=== PATIENT | male | born 1940 | race African-American/Black ===

== ENCOUNTER 2017-11-02 15:20 | Inpatient (IN) | payer OTHER ==
[2017-11-02] MEDS ORDERED: NACL 0.9% 1000 ML 1,000 ML IV ONE (15:45)
[2017-11-02] MEDS ORDERED: TYLENOL PR ONE (15:46)
[2017-11-02] MEDS: ZOSYN/NS 4.5GM/100ML 4.5 GM/100 ML VIAL IV SCH ×2 (16:00→22:37)
[2017-11-02] MEDS ORDERED: TYLENOL PO PRN (16:04)
[2017-11-02] MEDS ORDERED: DILAUDID IV PRN (16:04)
--- NOTE | 2017-11-02 16:19 | Emergency Department Report ---
ED Fever HPI - General Chief Complaint: Fever Stated Complaint: SEPSIS Time Seen by Provider: 11/02/17 15:57 - History of Present Illness Initial Comments: 77-year-old man with recent diagnosis of pyogenic hepatic abscess here, with apparent surgical treatment at [place], and discharged October 30, 4 days ago, presents with high fever, low blood pressure found to be 80 systolic at triage with significant tachycardia at 120 bpm. Patient denies pain at this time. Patient is , speaks very little Amharic, but denies pain, is awake and oriented, attempts to communicate, but is not understandable due to poor Amharic skills.. Further review of chart here shows patient had drainage of abscess, which ultimately grew gram-negative rods, Klebsiella, but liver also showed multiple septi an abscess, and liver itself showed cirrhosis, and was suspicious for underlying hepatocellular carcinoma. Patient was transferred to [facility] in mid Sep, 2017 for further care, and resultant procedures performed at that place or difficult to determine. Hospital volunteers present in department who speak Slovak were present, spoke with the patient, but patient had insufficient knowledge accurately describe what was performed for him, other than a surgical drainage procedure. Report from translators was that the patient was in good health today, when he suddenly developed shaking chills, weakness, and feverishness with diaphoresis while he was in his car, at approximately 1300 hrs. This was the precipitant for patient's emergency department visit here. Patient found to be significantly febrile, temperature 39.8 C, tachycardic at 120 bpm, and hypotensive with blood pressure 80 systolic, and rapid resuscitation according to sepsis protocol was initiated on patient. Timing/Duration: this morning Fever Severity/Quality: greater than 102 F Associated Symptoms: denies: abdominal pain, chest pain, headache, shortness of breath, stiff neck ED Review of Systems ROS: Stated complaint: SEPSIS Other details as noted in HPI Comment: language limitation Constitutional: chills, fever, malaise, weakness ENT: denies: throat pain Respiratory: denies: cough, shortness of breath Cardiovascular: denies: chest pain Endocrine: excessive sweating Gastrointestinal: other (recent surgery, abdominal incisions). denies: abdominal pain Genitourinary: denies: urgency, dysuria Musculoskeletal: denies: back pain Neurological: denies: headache ED Past Medical Hx - Past Medical History Hx Hypertension: Yes Hx CVA: No Hx Heart Attack/AMI: No Hx Congestive Heart Failure: No Hx Diabetes: No Hx Deep Vein Thrombosis: No Hx Pulmonary Embolism: No Hx GERD: No Hx Liver Disease: No Hx Renal Disease: No Hx Sickle Cell Disease: No Hx Arthritis: No Hx Headaches / Migraines: No Hx Seizures: No Hx Kidney Stones: No Hx Psychiatric Treatment: No Hx Asthma: No Hx COPD: No Hx Tuberculosis: No Hx Dementia: No Hx HIV: No Additional medical history: Pyogenic hepatic abscess - Surgical History Hx Coronary Stent: No Hx Open Heart Surgery: No Hx Pacemaker: No Hx Internal Defibrillator: No Hx Cholecystectomy: No Hx Appendectomy: No Hx Breast Surgery: No - Social History Smoking Status: Unknown if ever smoked Substance Use Type: None - Medications Home Medications: Home Medications Medication Instructions Recorded Confirmed Last Taken Type Simvastatin 20 mg PO DAILY 09/24/17 09/24/17 2 Weeks Ago History ~09/10/17 Colchicine [Colcrys] 0.6 mg PO BID #60 tablet 10/05/17 Unknown Rx cefTRIAXone [Ceftriaxone] 2 gm IV Q24HR #1 vial 10/05/17 Unknown Rx ED Physical Exam - General Limitations: Language Barrier General appearance: alert, in distress (hypotensive, acutely weak, but awake, oriented, difficult to understand due to poor Amharic skills) - Head Head exam: Present: atraumatic, normocephalic - Eye Eye exam: Present: PERRL - ENT ENT exam: Present: mucous membranes dry - Neck Neck exam: Present: normal inspection, full ROM. Absent: tenderness - Respiratory Respiratory exam: Present: normal lung sounds bilaterally. Absent: respiratory distress - Cardiovascular Cardiovascular Exam: Present: tachycardia - GI/Abdominal GI/Abdominal exam: Present: soft, other (recent surgical incisions, laparoscopic and midline upper abdomen, healing well, nontender) - Rectal Rectal exam: Present: deferred - Extremities Exam Extremities exam: Present: normal inspection - Back Exam Back exam: Present: normal inspection - Neurological Exam Neurological exam: Present: alert, CN II-XII intact. Absent: motor sensory deficit - Psychiatric Psychiatric exam: Present: normal affect - Skin Skin exam: Present: warm (cooperative, pleasant) ED Course Vital Signs 11/02/17 11/02/17 11/02/17 15:37 16:16 16:30 Temperature 39.8 C H Pulse Rate 127 H 119 H 117 H Respiratory 21 23 20 Rate Blood Pressure 116/52 94/44 93/46 Blood Pressure [Left] O2 Sat by Pulse 94 Oximetry 11/02/17 11/02/17 11/02/17 16:46 17:00 17:05 Temperature 37.8 C H Pulse Rate 103 H 97 H Respiratory 23 20 Rate Blood Pressure 91/43 104/48 Blood Pressure [Left] O2 Sat by Pulse Oximetry 11/02/17 11/02/17 11/02/17 17:16 17:30 17:33 Temperature Pulse Rate 92 H 94 H 92 H Respiratory 23 24 22 Rate Blood Pressure 102/41 114/56 Blood Pressure 86/66 [Left] O2 Sat by Pulse 99 Oximetry 11/02/17 11/02/17 11/02/17 17:45 18:00 18:15 Temperature Pulse Rate 94 H 86 91 H Respiratory 21 21 26 H Rate Blood Pressure 82/41 92/47 101/53 Blood Pressure [Left] O2 Sat by Pulse Oximetry 11/02/17 11/02/17 18:30 18:45 Temperature Pulse Rate 84 85 Respiratory 18 23 Rate Blood Pressure 95/49 104/50 Blood Pressure [Left] O2 Sat by Pulse Oximetry - Reevaluation(s) Reevaluation #1: 11/02/17 17:05 Patient's blood pressure has declined since initial positive response resuscitation, and is currently 88 systolic, tachycardic remains a little change but at 120 bpm. Reevaluation #2: 11/02/17 18:38 Triple lumen right internal jugular central line placed under ultrasound guidance, see note for particulars. Patient tolerated procedure well Vital signs after procedure blood pressure 95/54, heart rate 84, oxygen saturation 99%, with norepinephrine drip at 4 mcg/m. - Central Line Placement Right IJ Consent Obtained: verbal consent (with translation by hospital volunteers Sarah) Time Out Performed: Yes Patient Placed on Monitor/Pulse Ox: Yes MD Prep: mask, gown, gloves Central Line Prep: Chlorhexidine scrub Local Anesthesia Used: Lidocaine 1% Amount of Anesthesia Used (mls): 3 Ultrasound Used for Placement: Yes Central Line Lumen Inserted: triple Bloods Obtained for Lab: Yes Central Line Position: good blood return, all ports aspirated, flus, sutured in place with 2-0 Dressing Applied: Tegaderm Post Procedure X-Ray: tip of catheter in good p Patient Tolerated Procedure: well Complications: none ED Medical Decision Making - Lab Data Result diagrams: 11/02/17 15:55 11/02/17 15:55 - Medical Decision Making Patient has clear-cut sepsis with fever, hypotension, tachycardia, with known infectious origin from pyogenic Status and liver. Since patient has had decline after initial positive response to resuscitation, he will likely need ICU admission and support with vasopressors. - Differential Diagnosis sepsis, abscess, ruptured viscus, pneumonia, UTI Critical Care Time: Yes Critical care time in (mins) excluding proc time.: 60 Critical care attestation.: If time is entered above; I have spent that time in minutes in the direct care of this critically ill patient, excluding procedure time. Critical Care Time: 60 minutes of critical care time was provided in assessing and stabilizing this patient's acute unstable condition secondary to severe sepsis and known pyogenic hepatic abscess, with recurrence of hypotension, necessitating vasopressor support as well as placement of triple lumen catheter, with critical care time being exclusive of 30 minutes provided in establishing patient's central line. ED Disposition Clinical Impression: Sepsis Qualifiers: Sepsis type: sepsis due to unspecified organism Qualified Code(s): A41.9 - Sepsis, unspecified organism Disposition: OP ADMIT IP TO THIS HOSP Is pt being admited?: Yes Does the pt Need Aspirin: No Condition: Stable Referrals: PRIMARY CARE, [Primary Care Provider] - 3-5 Days Time of Disposition: 16:00
[2017-11-02 16:28] LABS: Basophils % (Auto) 0.3 % (0.0-1.8); Eosinophils % (Auto) 0.1 % (0.0-4.3); Hemoglobin 10.4 gm/dl (11.8-15.2); Lymphocytes # (Auto) 0.6 K/mm3 (1.2-5.4); Monocytes # (Auto) 0.5 K/mm3 (0.0-0.8); Monocytes % (Auto) 4.7 % (0.0-7.3)
[2017-11-02 16:31] LABS: Amorphous Crystals,Urine Few; Bilirubin,Urine NEG (Negative); Blood,Urine NEG (Negative); Color,Urine Yellow (Yellow); Mucus,Urine FEW /HPF; Protein,Urine <15 mg/dL mg/dL (Negative); Urobilinogen,Urine < 2.0 mg/dL (<2.0)
[2017-11-02 16:36] LABS: INR 1.13 (0.87-1.13); Partial Thromboplastin Time 30.7 Sec. (24.2-36.6)
[2017-11-02 16:40] LABS: Hematocrit 33.1 % (35.5-45.6); Mean Corpuscular HGB Conc 32 % (32-34); Mean Corpuscular Hemoglobin 32 pg (28-32); Mean Corpuscular Volume 99 fl (84-94); Platelet Count 347 K/mm3 (140-440); Red Blood Count 3.36 M/mm3 (3.65-5.03); Red Cell Distribution Width 18.2 % (13.2-15.2)
[2017-11-02 16:41] LABS: Alanine Aminotransferase 18 units/L (7-56); Albumin 2.8 g/dL (3.9-5); BUN/Creatinine Ratio 13; Blood Urea Nitrogen 14 mg/dL (9-20); Hemolysis Index 5
[2017-11-02] MEDS ORDERED: LEVOPHED DRIP 4 MG/NS 250 ML 4 MG/250 ML BAG IV ONE (17:00)
--- NOTE | 2017-11-02 17:51 | XRay Report ---
FINAL REPORT EXAM: XR CHEST 1V AP HISTORY: possible Sepsis TECHNIQUE: Single, portable chest x-ray. PRIORS: 23 Sep 2017. FINDINGS: Cardiac and mediastinal silhouette within normal limits. Lungs are normally expanded, with questionable, mild retrocardiac opacity, which may be new or more conspicuous. No significant vascular congestion, other focal consolidation or apparent pneumothorax. Bony thorax grossly unremarkable. IMPRESSION: 1. Findings which may represent left basilar atelectasis, mild infiltrate or postinflammatory change more conspicuous in the interval. Correlate clinically. 2. Otherwise, unremarkable.
[2017-11-02] MEDS ORDERED: LEVOPHED DRIP 4 MG/NS 250 ML 4 MG/250 ML BAG IV SCH (18:00)
[2017-11-02] MEDS ORDERED: NACL 0.9% 250ML 250 ML IV ONE (19:01)
--- NOTE | 2017-11-02 20:26 | XRay Report ---
FINAL REPORT EXAM: XR CHEST 1V AP HISTORY: LINE PLACEMENT TECHNIQUE: Single, portable chest x-ray. PRIORS: Earlier on same date. FINDINGS: Right IJ central venous catheter tip projects over the right atrium and may be withdrawn 3-4 cm. Cardiac silhouette stable. Lungs without significant interval change. No apparent pneumothorax. IMPRESSION: 1. Right IJ central venous catheter position as reported. 2. Otherwise, stable.
[2017-11-02] MEDS ORDERED: NACL 0.9% 1000 ML 2,000 ML ONE (23:51)
--- NOTE | 2017-11-03 00:21 | History and Physical Report ---
History of Present Illness Date of examination: 11/02/17 Date of admission: 11/02/17 19:01 Chief complaint: Chief complaint: Fever of 1 day duration since a.m. with chills History of present illness: History of Present Illness: 77-year-old man with recent diagnosis of pyogenic hepatic abscess here, with apparent surgical treatment at [place], and discharged October 30, 4 days ago, presents with high fever, low blood pressure found to be 80 systolic at triage with significant tachycardia at 120 bpm. Patient denies pain at this time. Patient is , speaks very little Khmer, but denies pain, is awake and oriented, attempts to communicate, but is not understandable due to poor Khmer skills.. Further review of chart here shows patient had drainage of abscess, which ultimately grew gram-negative rods, Klebsiella, but liver also showed multiple septi an abscess, and liver itself showed cirrhosis, and was suspicious for underlying hepatocellular carcinoma. Patient was transferred to [facility] in mid Sep, 2017 for further care, and resultant procedures performed at that place or difficult to determine. Hospital volunteers present in department who speak Croatian were present, spoke with the patient, but patient had insufficient knowledge accurately describe what was performed for him, other than a surgical drainage procedure. Report from translators was that the patient was in good health today, when he suddenly developed shaking chills, weakness, and feverishness with diaphoresis while he was in his car, at approximately 1300 hrs. This was the precipitant for patient's emergency department visit here. Patient found to be significantly febrile, temperature 39.8 C, tachycardic at 120 bpm, and hypotensive with blood pressure 80 systolic, and rapid resuscitation according to sepsis protocol was initiated on patient. Timing/Duration: this morning Fever Severity/Quality: greater than 102 F Associated Symptoms: denies: abdominal pain, chest pain, headache, shortness of breath, stiff neck Past Medical History Hx Hypertension: Yes Hx CVA: No Additional medical history: Pyogenic hepatic abscess -Surgical History Drainage of liver abscess - Social History Smoking Status: Unknown if ever smoked Substance Use Type: None Family history Hypertension - Medications Home Medications: Home Medications Medication Instructions Recorded Confirmed Last Taken Type Simvastatin 20 mg PO DAILY 09/24/17 09/24/17 2 Weeks Ago History ~09/10/17 Colchicine [Colcrys] 0.6 mg PO BID #60 tablet 10/05/17 Unknown Rx cefTRIAXone [Ceftriaxone] 2 gm IV Q24HR #1 vial 10/05/17 Unknown Rx Review of Systems ROS: Stated complaint: SEPSIS Other details as noted in HPI Comment: language limitation Constitutional: chills, fever, malaise, weakness ENT: denies: throat pain Respiratory: denies: cough, shortness of breath Cardiovascular: denies: chest pain Endocrine: excessive sweating Gastrointestinal: other (recent surgery, abdominal incisions). denies: abdominal pain Genitourinary: denies: urgency, dysuria Musculoskeletal: denies: back pain Neurological: denies: headache Medications and Allergies Allergies Allergy/AdvReac Type Severity Reaction Status Date / Time No Known Allergies Allergy Unverified 09/23/17 20:31 Home Medications Medication Instructions Recorded Confirmed Last Taken Type Simvastatin 20 mg PO DAILY 09/24/17 09/24/17 2 Weeks Ago History ~09/10/17 Colchicine [Colcrys] 0.6 mg PO BID #60 tablet 10/05/17 Unknown Rx cefTRIAXone [Ceftriaxone] 2 gm IV Q24HR #1 vial 10/05/17 Unknown Rx Active Meds: Active Medications Acetaminophen (Tylenol) 650 mg PO Q6H PRN PRN Reason: Pain, Mild (1-3) Hydromorphone HCl (Dilaudid) 0.25 mg IV Q4H PRN PRN Reason: Pain, Moderate (4-6) Piperacillin Sod/Tazobactam Sod (Zosyn/Ns 4.5gm/100ml) 4.5 gm in 100 mls @ 200 mls/hr IV Q8HR MICHELLE; Protocol Last Admin: 11/02/17 22:37 Dose: 200 mls/hr Norepinephrine (Levophed Drip 4 Mg/Ns 250 Ml) 4 mg in 250 mls @ 7.5 mls/hr IV TITR MICHELLE; Protocol Last Titration: 11/02/17 17:53 Dose: 6 mcg/min, 22.5 mls/hr Exam - Physical Exam Narrative exam: Patient in mild distress - Constitutional Vitals: Temp Pulse Resp BP Pulse Ox 100.1 F H 68 20 98/60 98 11/02/17 19:02 11/03/17 00:00 11/03/17 00:00 11/03/17 00:00 11/02/17 19:12 General appearance: Present: mild distress, well-nourished, other (chills present and fever present) - EENT Eyes: Present: PERRL ENT: hearing intact, clear oral mucosa - Neck Neck: Present: supple, normal ROM - Respiratory Respiratory effort: normal Respiratory: bilateral: CTA - Cardiovascular Heart rate: 100 Rhythm: regular Heart Sounds: Present: S1 & S2. Absent: rub, click - Extremities Extremities: no ischemia, pulses intact, pulses symmetrical, No edema Peripheral Pulses: within normal limits - Abdominal General gastrointestinal: Present: soft, non-tender, non-distended, normal bowel sounds Male genitourinary: Present: normal - Rectal Rectal Exam: deferred - Integumentary Integumentary: Present: clear, warm, dry - Musculoskeletal Musculoskeletal: gait normal, strength equal bilaterally - Psychiatric Psychiatric: appropriate mood/affect, intact judgment & insight - Neurologic Neurologic: CNII-XII intact, moves all extremities - Allied Health Allied health notes reviewed: nursing, case management Results - Labs CBC & Chem 7: 11/02/17 15:55 11/02/17 15:55 Labs: Laboratory Last Values WBC 11.4 K/mm3 (4.5-11.0) H 11/02/17 15:55 RBC 3.36 M/mm3 (3.65-5.03) L 11/02/17 15:55 Hgb 10.4 gm/dl (11.8-15.2) L 11/02/17 15:55 Hct 33.1 % (35.5-45.6) L 11/02/17 15:55 MCV 99 fl (84-94) H 11/02/17 15:55 MCH 32 pg (28-32) 11/02/17 15:55 MCHC 32 % (32-34) 11/02/17 15:55 RDW 18.2 % (13.2-15.2) H 11/02/17 15:55 Plt Count 347 K/mm3 (140-440) 11/02/17 15:55 Lymph % (Auto) 5.0 % (13.4-35.0) L 11/02/17 15:55 [place] % (Auto) 4.7 % (0.0-7.3) 11/02/17 15:55 Eos % (Auto) 0.1 % (0.0-4.3) 11/02/17 15:55 Baso % (Auto) 0.3 % (0.0-1.8) 11/02/17 15:55 Lymph # 0.6 K/mm3 (1.2-5.4) L 11/02/17 15:55 [place] # 0.5 K/mm3 (0.0-0.8) 11/02/17 15:55 Eos # 0.0 K/mm3 (0.0-0.4) 11/02/17 15:55 Baso # 0.0 K/mm3 (0.0-0.1) 11/02/17 15:55 Seg Neutrophils % 89.9 % (40.0-70.0) H 11/02/17 15:55 Seg Neutrophils # 10.2 K/mm3 (1.8-7.7) H 11/02/17 15:55 PT 15.1 Sec. (12.2-14.9) H 11/02/17 15:55 INR 1.13 (0.87-1.13) 11/02/17 15:55 APTT 30.7 Sec. (24.2-36.6) 11/02/17 15:55 VBG pH 7.374 (7.320-7.420) 11/02/17 15:55 Sodium 136 mmol/L (137-145) L 11/02/17 15:55 Potassium 4.4 mmol/L (3.6-5.0) 11/02/17 15:55 Chloride 98.8 mmol/L (98-107) 11/02/17 15:55 Carbon Dioxide 19 mmol/L (22-30) L 11/02/17 15:55 Anion Gap 23 mmol/L 11/02/17 15:55 BUN 14 mg/dL (9-20) 11/02/17 15:55 Creatinine 1.1 mg/dL (0.8-1.5) 11/02/17 15:55 Estimated GFR > 60 ml/min 11/02/17 15:55 BUN/Creatinine Ratio 13 % 11/02/17 15:55 Glucose 124 mg/dL (75-100) H 11/02/17 15:55 Lactic Acid 1.70 mmol/L (0.7-2.0) 11/02/17 17:12 Calcium 8.0 mg/dL (8.4-10.2) L 11/02/17 15:55 Total Bilirubin 0.50 mg/dL (0.1-1.2) 11/02/17 15:55 AST 30 units/L (5-40) 11/02/17 15:55 ALT 18 units/L (7-56) 11/02/17 15:55 Alkaline Phosphatase 155 units/L (35-129) H 11/02/17 15:55 Troponin T < 0.010 ng/mL (0.00-0.029) 11/02/17 15:55 Total Protein 6.3 g/dL (6.3-8.2) 11/02/17 15:55 Albumin 2.8 g/dL (3.9-5) L 11/02/17 15:55 Albumin/Globulin Ratio 0.8 % 11/02/17 15:55 Urine Color Yellow (Yellow) 11/02/17 16:00 Urine Turbidity Clear (Clear) 11/02/17 16:00 Urine pH 5.0 (5.0-7.0) 11/02/17 16:00 Ur Specific [place] 1.014 (1.003-1.030) 11/02/17 16:00 Urine Protein <15 mg/dl mg/dL (Negative) 11/02/17 16:00 Urine Glucose (UA) Neg mg/dL (Negative) 11/02/17 16:00 Urine Ketones Neg mg/dL (Negative) 11/02/17 16:00 Urine Blood Neg (Negative) 11/02/17 16:00 Urine Nitrite Neg (Negative) 11/02/17 16:00 Urine Bilirubin Neg (Negative) 11/02/17 16:00 Urine Urobilinogen < 2.0 mg/dL (<2.0) 11/02/17 16:00 Ur Leukocyte Esterase Neg (Negative) 11/02/17 16:00 Urine WBC (Auto) 1.0 /HPF (0.0-6.0) 11/02/17 16:00 Urine RBC (Auto) 3.0 /HPF (0.0-6.0) 11/02/17 16:00 U Epithel Cells (Auto) < 1.0 /HPF (0-13.0) 11/02/17 16:00 Amorphous Crystals Few 11/02/17 16:00 Urine Mucus Few /HPF 11/02/17 16:00 Blood Type B POSITIVE 11/02/17 16:19 Antibody Screen Negative 11/02/17 16:19 - Imaging and Cardiology Chest x-ray: report reviewed Imaging and Cardiology: Chest x-ray: IMPRESSION: Findings which may represent left basilar atelectasis, mild infiltrate or postinflammatory change more conspicuous in the interval. Correlate clinically. 2. Otherwise, unremarkable. Assessment and Plan Advance Directives: Yes (full code) VTE prophylaxis?: Chemical Plan of care discussed with patient/family: Yes - Patient Problems (1) Sepsis Current Visit: Yes Status: Acute Qualifiers: Sepsis type: sepsis due to unspecified organism Qualified Code(s): A41.9 - Sepsis, unspecified organism Plan to address problem: IV Zosyn and Flagyl for hepatic abscess IV fluids IV Levophed if necessary ID consult requested Last admission cultures were positive for Klebsiella (2) Pyogenic hepatic abscess Current Visit: No Status: Acute Plan to address problem: Etiology unclear Most probably Klebsiella infection Hepatic Amebiasis to be considered.Patient is from [facility] IV Flagyl initiated (3) Hypotension Current Visit: Yes Status: Acute Qualifiers: Hypotension type: unspecified hypotension type Qualified Code(s): I95.9 - Hypotension, unspecified Plan to address problem: Secondary to sepsis IV fluids and IV Levophed as necessary Central line inserted by the emergency room physician Dr. Carney (4) Lactic acidosis Current Visit: Yes Status: Acute Plan to address problem: Secondary to sepsis (5) Hyperlipidemia Current Visit: Yes Status: Chronic Qualifiers: Hyperlipidemia type: mixed hyperlipidemia Qualified Code(s): E78.2 - Mixed hyperlipidemia Plan to address problem: We'll hold the statins (6) DVT prophylaxis Current Visit: Yes Status: Acute Plan to address problem: Heparin 5000 subcutaneously every 12 hours
[2017-11-03] MEDS ORDERED: SODIUM CHLORIDE FLUSH SYRINGE 10 ML IV PRN (00:35)
[2017-11-03] MEDS ORDERED: ZOFRAN IV PRN (00:35)
[2017-11-03] MEDS ORDERED: MORPHINE IV PRN (00:35)
[2017-11-03] MEDS ORDERED: TYLENOL PO PRN (00:35)
[2017-11-03] MEDS ORDERED: FLAGYL 500 MG/100 ML 500 MG/100 ML BAG IV ONE (00:49)
[2017-11-03] MEDS ORDERED: HEPARIN ONE (00:50)
[2017-11-03] MEDS: FLAGYL 500 MG/100 ML 500 MG/100 ML BAG IV SCH ×3 (00:53→16:25)
[2017-11-03] MEDS: HEPARIN SUB-Q SCH ×3 (00:53→23:17)
[2017-11-03 05:32] LABS: BUN/Creatinine Ratio 11; Blood Urea Nitrogen 9 mg/dL (9-20); Calcium 7.7 mg/dL (8.4-10.2); Hemolysis Index 10
[2017-11-03] MEDS: ZOSYN/NS 4.5GM/100ML 4.5 GM/100 ML VIAL IV SCH (05:59)
--- NOTE | 2017-11-03 08:49 | Consultation ---
History of Present Illness Consult date: 11/03/17 Requesting physician: MITZY ALFRED Reason for consult: other (severe sepsis with septic shock) History of present illness: History as documented in medical records 77-year-old man with recent diagnosis of pyogenic hepatic abscess here, with apparent surgical treatment at [facility], and discharged October 30, 4 days ago, presents with high fever, low blood pressure found to be 80 systolic at triage with significant tachycardia at 120 bpm. Patient denies pain at this time. Patient is , speaks very little [place], but denies pain, is awake and oriented, attempts to communicate, but is not understandable due to poor Ukrainian skills.. Further review of chart here shows patient had drainage of abscess, which ultimately grew gram-negative rods, Klebsiella, but liver also showed multiple septi an abscess, and liver itself showed cirrhosis, and was suspicious for underlying hepatocellular carcinoma. Patient was transferred to [facility] in mid Sep, 2017 for further care, and resultant procedures performed at that place or difficult to determine. Hospital volunteers present in department who speak Russian were present, spoke with the patient, but patient had insufficient knowledge accurately describe what was performed for him, other than a surgical drainage procedure. Report from translators was that the patient was in good health today, when he suddenly developed shaking chills, weakness, and feverishness with diaphoresis while he was in his car, at approximately 1300 hrs. This was the precipitant for patient's emergency department visit here. Patient found to be significantly febrile, temperature 39.8 C, tachycardic at 120 bpm, and hypotensive with blood pressure 80 systolic, and rapid resuscitation according to sepsis protocol was initiated on patient. Patient was seen and examined in the ICU History was limited by language barrier. he states he feels OK at this time. Vitals, labs, medications, chart reviewed. Discussed during ICU-IDT rounds. Currently being treated for severe sepsis with septic shock Medications and Allergies Allergies Allergy/AdvReac Type Severity Reaction Status Date / Time No Known Allergies Allergy Unverified 09/23/17 20:31 Home Medications Medication Instructions Recorded Confirmed Last Taken Type Simvastatin 20 mg PO DAILY 09/24/17 09/24/17 2 Weeks Ago History ~09/10/17 Colchicine [Colcrys] 0.6 mg PO BID #60 tablet 10/05/17 Unknown Rx cefTRIAXone [Ceftriaxone] 2 gm IV Q24HR #1 vial 10/05/17 Unknown Rx Active Meds: Active Medications Acetaminophen (Tylenol) 650 mg PO Q4H PRN PRN Reason: Pain MILD(1-3)/Fever >100.5/GOODMAN Famotidine (Pepcid) 20 mg IV DAILY MICHELLE Heparin Sodium (Porcine) (Heparin) 5,000 unit SUB-Q Q12HR MICHELLE Last Admin: 11/03/17 00:53 Dose: 5,000 unit Piperacillin Sod/Tazobactam Sod (Zosyn/Ns 4.5gm/100ml) 4.5 gm in 100 mls @ 200 mls/hr IV Q8HR MICHELLE; Protocol Last Admin: 11/03/17 05:59 Dose: 200 mls/hr Norepinephrine (Levophed Drip 4 Mg/Ns 250 Ml) 4 mg in 250 mls @ 7.5 mls/hr IV TITR MICHELLE; Protocol Last Titration: 11/03/17 05:27 Dose: 0 mcg/min, 0 mls/hr Dextrose/Sodium Chloride (D5ns) 1,000 mls @ 125 mls/hr IV DIRECT MICHELLE Metronidazole (Flagyl 500 Mg/100 Ml) 500 mg in 100 mls @ 100 mls/hr IV Q8H MICHELLE ; Protocol Last Admin: 11/03/17 00:53 Dose: 100 mls/hr Morphine Sulfate (Morphine) 2 mg IV Q4H PRN PRN Reason: Pain, Moderate (4-6) Ondansetron HCl (Zofran) 4 mg IV Q8H PRN PRN Reason: Nausea And Vomiting Sodium Chloride (Sodium Chloride Flush Syringe 10 Ml) 10 ml IV BID MICHELLE Sodium Chloride (Sodium Chloride Flush Syringe 10 Ml) 10 ml IV PRN PRN PRN Reason: LINE FLUSH Physical Examination Vital signs: Vital Signs Temp Pulse Resp BP Pulse Ox 103.7 F H 127 H 21 116/52 94 11/02/17 15:37 11/02/17 15:37 11/02/17 15:37 11/02/17 15:37 11/02/17 15:37 General appearance: Alert in NAD, conversant Eyes: anicteric sclerae, moist conjunctivae; no lid-lag; PERRLA HENT: Atraumatic; oropharynx clear with moist mucous membranes and no mucosal ulcerations/no oral thrush; normal hard and soft palate. Normal external ears. Neck: Trachea midline; supple, no thyromegaly or lymphadenopathy Lungs: CTA, with normal respiratory effort and no intercostal retractions CV: RRR, no murmurs, S1,S2 Abdomen: Soft, mild tender to palpation right upper quadrant , midline healed post surgical wounds Extremities: No peripheral edema or extremity lymphadenopathy Skin: Normal temperature, turgor and texture; no rash, ulcers or subcutaneous nodules Psych: Appropriate affect, alert and oriented to person, place and time. Neuro: alert, non focal ..moving all extremities Results - Laboratory Findings CBC and BMP: 11/02/17 15:55 11/03/17 04:28 PT/INR, D-dimer PT 15.1 Sec. (12.2-14.9) H 11/02/17 15:55 INR 1.13 (0.87-1.13) 11/02/17 15:55 Abnormal lab findings: Abnormal Labs 11/02/17 11/02/17 11/02/17 15:55 15:55 15:55 WBC 11.4 H RBC 3.36 L Hgb 10.4 L Hct 33.1 L MCV 99 H RDW 18.2 H Lymph % (Auto) 5.0 L Lymph # 0.6 L Seg Neutrophils % 89.9 H Seg Neutrophils # 10.2 H PT 15.1 H Sodium 136 L Chloride Carbon Dioxide 19 L Glucose 124 H Hemoglobin A1c Lactic Acid Calcium 8.0 L Alkaline Phosphatase 155 H Albumin 2.8 L 11/02/17 11/03/17 11/03/17 15:55 01:16 04:28 WBC RBC Hgb Hct MCV RDW Lymph % (Auto) Lymph # Seg Neutrophils % Seg Neutrophils # PT Sodium Chloride 110.8 H Carbon Dioxide Glucose 152 H Hemoglobin A1c 8.1 H Lactic Acid 7.20 H* Calcium 7.7 L Alkaline Phosphatase Albumin - Diagnostic Findings Chest x-ray: image reviewed (No acute infiltrate) Assessment and Plan Severe sepsis with septic shock Fevers, with history of pyogenic/complex hepatic abscesses Lactic acidosis Moderate protein calorie malnutrition -Sepsis bundle addressed -wean off vasopressor support for MAP>65 - VTE prophylaxis -Broad spectrum antibiotics, per ID -follow up abdominal imaging to monitor response to antibiotics, ?need for percutaneous drainnage -Follow up blood and urine cultures then de-escalate antibiotics based on FIDEL -Get all records from [place]( notified [facility]) -When patient is weaned off vasopressor support and his hemodynamics remain normal then will plan to transfer out of ICU to monitored floor Critical care time in (mins) excluding proc time.: 35 Critical care attestation.: If time is entered above; I have spent that time in minutes in the direct care of this critically ill patient, excluding procedure time.
--- NOTE | 2017-11-03 09:01 | Consultation ---
History of Present Illness - Reason for Consult Consult date: 11/03/17 fever Requesting physician: MITZY ALFRED - History of Present Illness 77 y/o male with history of hypertension, hyperlipidemia, [place] Citizen speaking; well known to ID seen during previous admission from 09/23-10/05/17 due to complex liver abscess and Klebsiella septicemia. On 09/23 he was found septic and with acute encephalopathy due to Klebsiella septicemia which was felt to be from a complex liver abscess. Blood cx positive on 09/23/17. Blood cx negative on . UA was negative. Abd US + liver cirrhosis and hepatic mass 6.7 cm. HIDA neg. CRP=32. AFP=1.5.Viral hepatitis panel neg MRI showing 6.1x7.9x8.6cm loculated mass in the right hepatic lobe with multiple septations ? complex abscess. S/P IR drainage 09/29/17 culture +Klebsiella with persistent drainage of purulence, repeat CT no changes collection went from 8.9x6.7 cm to 8.4x6.6 cm. On 10/05/17 patient was accepted at [facility] for OR management. It is unclear what procedure he underwent. Patient only speaks [place] Citizen and records from [facility] are not available. It seems he had some kind of laparoscopy surgery from physical exam. He was discharged home from [facility] on 10/30/17. Unfortunately, patient was brought back to the hospital due to severe chills and fever. Interview is limited in view of language barrier. In the ED, initial temperature was 103.7, heart rate 127, respiration 21, O2 sat 94, blood pressure 116/52. Initial white count 11.4. Hemoglobin 10.4. Platelets 347. Creatinine 1.1. Lactic acid 7.2. LFTs normal. Chest x-ray showed left lower lobe atelectasis. Microbiology: Blood cultures: 09/23 Klebsiella pneumoniae 3 of 4 bottles 09/25 negative 11/02 ngtd Urine cultures: 09/23 no growth IR drainage 09/29 Klebsiella Current Antimicrobials: Zosyn flagyl Previous Antimicrobials: ceftriaxone 09/29-10/05 Past History Past Medical History: other (complex liver abscesses, gout) Social history: other (IR draiange of liver, lap surgery at [facility] ) Family history: no significant family history Medications and Allergies Allergies Allergy/AdvReac Type Severity Reaction Status Date / Time No Known Allergies Allergy Unverified 09/23/17 20:31 Home Medications Medication Instructions Recorded Confirmed Last Taken Type Simvastatin 20 mg PO DAILY 09/24/17 09/24/17 2 Weeks Ago History ~09/10/17 Colchicine [Colcrys] 0.6 mg PO BID #60 tablet 10/05/17 Unknown Rx cefTRIAXone [Ceftriaxone] 2 gm IV Q24HR #1 vial 10/05/17 Unknown Rx Active Meds: Active Medications Acetaminophen (Tylenol) 650 mg PO Q4H PRN PRN Reason: Pain MILD(1-3)/Fever >100.5/GOODMAN Famotidine (Pepcid) 20 mg IV DAILY MICHELLE Heparin Sodium (Porcine) (Heparin) 5,000 unit SUB-Q Q12HR MICHELLE Last Admin: 11/03/17 00:53 Dose: 5,000 unit Piperacillin Sod/Tazobactam Sod (Zosyn/Ns 4.5gm/100ml) 4.5 gm in 100 mls @ 200 mls/hr IV Q8HR MICHELLE; Protocol Last Admin: 11/03/17 05:59 Dose: 200 mls/hr Norepinephrine (Levophed Drip 4 Mg/Ns 250 Ml) 4 mg in 250 mls @ 7.5 mls/hr IV TITR MICHELLE; Protocol Last Titration: 11/03/17 05:27 Dose: 0 mcg/min, 0 mls/hr Dextrose/Sodium Chloride (D5ns) 1,000 mls @ 125 mls/hr IV DIRECT MICHELLE Metronidazole (Flagyl 500 Mg/100 Ml) 500 mg in 100 mls @ 100 mls/hr IV Q8H MICHELLE ; Protocol Last Admin: 11/03/17 00:53 Dose: 100 mls/hr Morphine Sulfate (Morphine) 2 mg IV Q4H PRN PRN Reason: Pain, Moderate (4-6) Ondansetron HCl (Zofran) 4 mg IV Q8H PRN PRN Reason: Nausea And Vomiting Sodium Chloride (Sodium Chloride Flush Syringe 10 Ml) 10 ml IV BID MICHELLE Sodium Chloride (Sodium Chloride Flush Syringe 10 Ml) 10 ml IV PRN PRN PRN Reason: LINE FLUSH Review of Systems All systems: negative (Limited view of language barrier) Physical Examination - Physical Exam Narrative exam: General appearance: Alert in NAD, conversant Eyes: anicteric sclerae, moist conjunctivae; no lid-lag; PERRLA HENT: Atraumatic; oropharynx clear with moist mucous membranes and no mucosal ulcerations/no oral thrush; normal hard and soft palate. Normal external ears. Neck: Trachea midline; supple, no thyromegaly or lymphadenopathy Lungs: CTA, with normal respiratory effort and no intercostal retractions CV: RRR, no murmurs Abdomen: Soft, mild tender to palpation right upper quadrant + postsurgical wounds well-healed Extremities: No peripheral edema or extremity lymphadenopathy Skin: Normal temperature, turgor and texture; no rash, ulcers or subcutaneous nodules Psych: Appropriate affect, alert and oriented to person, place and time. Neuro: alert and oriented x 3. Moving all extermities Lines: No CVL / PICC - Constitutional Vitals: Vital Signs Temp Pulse Resp BP Pulse Ox 97.6 F 58 L 15 116/57 100 11/03/17 07:58 11/03/17 07:51 11/03/17 07:51 11/03/17 07:51 11/03/17 07:51 Temperature -Last 24 Hours Temperature [Pre-Procedure] 100.1 F Temperature 97.6 F Temperature 97.7 F Temperature 100.1 F Temperature 103.7 F Results - Labs CBC & Chem 7: 11/02/17 15:55 11/03/17 04:28 Labs: Abnormal lab results 11/02/17 11/02/17 11/02/17 Range/Units 15:55 15:55 15:55 WBC 11.4 H (4.5-11.0) K/mm3 RBC 3.36 L (3.65-5.03) M/mm3 Hgb 10.4 L (11.8-15.2) gm/dl Hct 33.1 L (35.5-45.6) % MCV 99 H (84-94) fl RDW 18.2 H (13.2-15.2) % Lymph % (Auto) 5.0 L (13.4-35.0) % Lymph # 0.6 L (1.2-5.4) K/mm3 Seg Neutrophils % 89.9 H (40.0-70.0) % Seg Neutrophils # 10.2 H (1.8-7.7) K/mm3 PT 15.1 H (12.2-14.9) Sec. Sodium 136 L (137-145) mmol/L Chloride (98-107) mmol/L Carbon Dioxide 19 L (22-30) mmol/L Glucose 124 H (75-100) mg/dL Hemoglobin A1c (4-6) % Lactic Acid (0.7-2.0) mmol/L Calcium 8.0 L (8.4-10.2) mg/dL Alkaline Phosphatase 155 H (35-129) units/L Albumin 2.8 L (3.9-5) g/dL 11/02/17 11/03/17 11/03/17 Range/Units 15:55 01:16 04:28 WBC (4.5-11.0) K/mm3 RBC (3.65-5.03) M/mm3 Hgb (11.8-15.2) gm/dl Hct (35.5-45.6) % MCV (84-94) fl RDW (13.2-15.2) % Lymph % (Auto) (13.4-35.0) % Lymph # (1.2-5.4) K/mm3 Seg Neutrophils % (40.0-70.0) % Seg Neutrophils # (1.8-7.7) K/mm3 PT (12.2-14.9) Sec. Sodium (137-145) mmol/L Chloride 110.8 H (98-107) mmol/L Carbon Dioxide (22-30) mmol/L Glucose 152 H (75-100) mg/dL Hemoglobin A1c 8.1 H (4-6) % Lactic Acid 7.20 H* (0.7-2.0) mmol/L Calcium 7.7 L (8.4-10.2) mg/dL Alkaline Phosphatase (35-129) units/L Albumin (3.9-5) g/dL Assessment and Plan Assessment: 1) Sepsis: Present on admission, manifested by fever, leukocytosis, tachycardia , increased lactate; etiology unclear, DDX recurrent bacteremia, persistent liver abscess 2) Recent Klebsiella septicemia: etiology likely complex liver abscess -Blood cx positive on 09/23/17 -Blood cx negative on 09/25/17 -UA was negative. -CT was unremarkable except for renal cysts and non obstructive stone. -Abd US + liver cirrhosis and hepatic mass 6.7 cm -HIDA neg -CRP=32 -AFP=1.5 3) Complex liver abscess: -MRI showing 6.1x7.9x8.6cm loculated mass in the right hepatic lobe with multiple septations ? complex abscess. -S/P IR drainage 09/29 culture +Klebsiella -repeat CT no changes collection went from 8.9x6.7 cm to 8.4x6.6 cm -transferred to [facility] 10/05/17 status post laparoscopic surgery for drainage, unclear details 4) History of Gout Plan: -obtain recordsd from [place] -urgent CT abs / pelvis -follow-up blood cx -check CRP -stop zosyn -start cefepime -continue flagyl -In view of complex abscess patient requires prolonged IV antibiotics probably 6 -8 weeks Thank you for your consultation, will follow up with you. Mallory Orozco MD Infectious Diseases Specialist [facility] ([facility] M [phone] O [phone]
[2017-11-03] MEDS: PEPCID IV SCH (09:24)
[2017-11-03] MEDS: SODIUM CHLORIDE FLUSH SYRINGE 10 ML IV SCH ×2 (09:26→22:00)
[2017-11-03] MEDS ORDERED: PEPCID IV SCH (10:00)
[2017-11-03] MEDS: MAXIPIME 2 GM in NACL 0.9% 20 ML IV SCH ×3 (10:31→23:17)
--- NOTE | 2017-11-03 12:16 | Cat Scan Report ---
CT ABDOMEN PELVIS WITH CONTRAST: HISTORY: Severe sepsis, history of complex liver abscess. COMPARISON: 10/05/17. TECHNIQUE: Helical CT in 1.25mm intervals following IV contrast. Sagittal and coronal reconstructions. FINDINGS: Lung bases: A small layering right pleural effusion has developed measuring up to 1.6 cm in thickness. The visualized lung bases are adequately aerated otherwise. Normal heart size. Liver: The percutaneous drain has been removed from the right hepatic lobe since 10/05/17. Partial resection of the right hepatic lobe is suspected, correlate with history. There is a mild degree of fluid posterior and lateral to the right hepatic lobe which is of uncertain significance. There is no evidence for internal gas or convincing peripheral enhancement to suggest an abscess. The remainder of the liver is within normal limits. Biliary system: Cholecystectomy changes are suspected. No biliary dilatation. Pancreas: Normal. Spleen: Normal. Kidneys/ureters/bladder: Scattered bilateral renal cysts are stable. No evidence for obstructive uropathy or pyelonephritis. The ureters and bladder are unremarkable. Adrenal glands: Normal. Aorta: Moderate diffuse calcifications. No evidence for aneurysm, stenosis or dissection. Intestines: Limited without oral contrast. No evidence for GI obstruction or focal inflammation. Appendix: Not confidently identified, correlate with surgical history. Adenopathy: None. Musculoskeletal: Intact. Mild thoracolumbar spondylosis. IMPRESSION: Interval surgical changes in the right hepatic lobe are suspected. Please see above and correlate with the patient. Small right pleural effusion. Scattered renal cysts, stable.
[2017-11-03] MEDS: D5NS 1,000 ML IV SCH (16:25)
--- NOTE | 2017-11-03 17:23 | Progress Note ---
Assessment and Plan - Patient Problems (1) Sepsis Current Visit: Yes Status: Acute Qualifiers: Sepsis type: sepsis due to unspecified organism Qualified Code(s): A41.9 - Sepsis, unspecified organism Plan to address problem: ID consult appreciated stop zosyn -start cefepime -continue flagyl -In view of complex abscess patient requires prolonged IV antibiotics probably 6 -8 weeks (2) Pyogenic hepatic abscess Current Visit: No Status: Acute Plan to address problem: Etiology unclear Klebsiella infection Records from [facility] to be obtained IV Flagyl and Cefepime to continue (3) Hypotension Current Visit: Yes Status: Acute Qualifiers: Hypotension type: unspecified hypotension type Qualified Code(s): I95.9 - Hypotension, unspecified Plan to address problem: Secondary to sepsis IV fluids Central line inserted by the emergency room physician Dr. Carney (4) Lactic acidosis Current Visit: Yes Status: Acute Plan to address problem: Secondary to sepsis (5) Hyperlipidemia Current Visit: Yes Status: Chronic Qualifiers: Hyperlipidemia type: mixed hyperlipidemia Qualified Code(s): E78.2 - Mixed hyperlipidemia Plan to address problem: We'll hold the statins (6) DVT prophylaxis Current Visit: Yes Status: Acute Plan to address problem: Heparin 5000 subcutaneously every 12 hours Subjective Date of service: 11/03/17 Principal diagnosis: Sepsis Interval history: Sx better Objective - Exam Narrative Exam: Patient in mild distress - Constitutional Vitals: Vital Signs - 12hr 11/03/17 11/03/17 11/03/17 05:20 05:30 05:40 Temperature Pulse Rate 70 63 64 Pulse Rate [ Left] Pulse Rate [ Right] Respiratory 22 13 17 Rate Blood Pressure 131/72 131/72 94/58 Blood Pressure [Left] O2 Sat by Pulse 100 100 Oximetry 11/03/17 11/03/17 11/03/17 05:51 06:00 06:11 Temperature Pulse Rate 61 62 60 Pulse Rate [ Left] Pulse Rate [ Right] Respiratory 16 16 15 Rate Blood Pressure 131/72 137/67 137/67 Blood Pressure [Left] O2 Sat by Pulse 100 100 100 Oximetry 11/03/17 11/03/17 11/03/17 06:14 06:21 06:31 Temperature Pulse Rate 54 L 61 Pulse Rate [ 70 Left] Pulse Rate [ 70 Right] Respiratory 18 20 Rate Blood Pressure 138/70 111/47 Blood Pressure [Left] O2 Sat by Pulse 100 100 100 Oximetry 11/03/17 11/03/17 11/03/17 06:41 06:51 07:00 Temperature Pulse Rate 61 71 59 L Pulse Rate [ Left] Pulse Rate [ Right] Respiratory 15 22 14 Rate Blood Pressure 111/47 139/66 124/63 Blood Pressure [Left] O2 Sat by Pulse 100 99 100 Oximetry 11/03/17 11/03/17 11/03/17 07:11 07:21 07:30 Temperature Pulse Rate 64 79 74 Pulse Rate [ Left] Pulse Rate [ Right] Respiratory 16 19 18 Rate Blood Pressure 124/63 131/67 111/49 Blood Pressure [Left] O2 Sat by Pulse 100 100 100 Oximetry 11/03/17 11/03/17 11/03/17 07:41 07:51 07:58 Temperature 97.6 F Pulse Rate 62 58 L Pulse Rate [ Left] Pulse Rate [ Right] Respiratory 16 15 Rate Blood Pressure 111/49 116/57 Blood Pressure [Left] O2 Sat by Pulse 100 100 Oximetry 11/03/17 11/03/17 11/03/17 08:00 08:11 08:21 Temperature Pulse Rate 77 70 67 Pulse Rate [ Left] Pulse Rate [ Right] Respiratory 20 17 14 Rate Blood Pressure 118/66 118/66 129/68 Blood Pressure [Left] O2 Sat by Pulse 100 100 100 Oximetry 11/03/17 11/03/17 11/03/17 08:30 08:41 08:51 Temperature Pulse Rate 68 67 63 Pulse Rate [ Left] Pulse Rate [ Right] Respiratory 21 17 16 Rate Blood Pressure 130/69 118/66 133/70 Blood Pressure [Left] O2 Sat by Pulse 100 99 98 Oximetry 11/03/17 11/03/17 11/03/17 09:00 09:11 09:20 Temperature Pulse Rate 72 84 70 Pulse Rate [ Left] Pulse Rate [ Right] Respiratory 13 15 19 Rate Blood Pressure 118/62 133/70 132/60 Blood Pressure [Left] O2 Sat by Pulse 100 98 100 Oximetry 11/03/17 11/03/17 11/03/17 09:31 09:41 09:51 Temperature Pulse Rate 93 H 78 74 Pulse Rate [ Left] Pulse Rate [ Right] Respiratory 21 19 19 Rate Blood Pressure 142/76 142/76 137/73 Blood Pressure [Left] O2 Sat by Pulse 98 99 98 Oximetry 11/03/17 11/03/17 11/03/17 10:00 10:11 10:21 Temperature Pulse Rate 73 69 68 Pulse Rate [ 62 Left] Pulse Rate [ 64 Right] Respiratory 15 18 15 Rate Blood Pressure 123/49 137/73 134/70 Blood Pressure [Left] O2 Sat by Pulse 98 98 98 Oximetry 11/03/17 11/03/17 11/03/17 10:30 10:41 10:51 Temperature Pulse Rate 70 83 80 Pulse Rate [ Left] Pulse Rate [ Right] Respiratory 18 17 19 Rate Blood Pressure 134/67 134/67 121/54 Blood Pressure [Left] O2 Sat by Pulse 97 99 98 Oximetry 11/03/17 11/03/17 11/03/17 11:00 11:11 11:21 Temperature Pulse Rate 75 71 79 Pulse Rate [ Left] Pulse Rate [ Right] Respiratory 12 17 21 Rate Blood Pressure 105/49 105/49 109/53 Blood Pressure [Left] O2 Sat by Pulse 97 98 100 Oximetry 11/03/17 11/03/17 11/03/17 11:49 11:51 12:00 Temperature 97.2 F L Pulse Rate 89 83 75 Pulse Rate [ Left] Pulse Rate [ Right] Respiratory 24 20 22 Rate Blood Pressure 146/72 146/72 134/76 Blood Pressure [Left] O2 Sat by Pulse 99 100 99 Oximetry 11/03/17 11/03/17 11/03/17 12:11 12:21 12:31 Temperature Pulse Rate 72 73 71 Pulse Rate [ Left] Pulse Rate [ Right] Respiratory 19 18 13 Rate Blood Pressure 109/53 109/53 109/53 Blood Pressure [Left] O2 Sat by Pulse 100 100 99 Oximetry 11/03/17 11/03/17 11/03/17 12:41 12:51 13:05 Temperature Pulse Rate 98 H 92 H Pulse Rate [ Left] Pulse Rate [ Right] Respiratory 17 21 Rate Blood Pressure 134/76 134/76 134/76 Blood Pressure [Left] O2 Sat by Pulse 100 99 100 Oximetry 11/03/17 11/03/17 11/03/17 13:11 13:51 15:00 Temperature 97.4 F L 97.4 F L Pulse Rate 102 H 101 H 101 H Pulse Rate [ Left] Pulse Rate [ Right] Respiratory 19 18 18 Rate Blood Pressure 134/76 Blood Pressure 140/69 140/69 [Left] O2 Sat by Pulse 98 99 99 Oximetry General appearance: Present: no acute distress, well-nourished - EENT Eyes: PERRL, EOM intact ENT: hearing intact, clear oral mucosa Ears: bilateral: normal - Neck Neck: supple, normal ROM - Respiratory Respiratory effort: normal Respiratory: bilateral: CTA - Breasts Breasts: deferred, normal - Cardiovascular Rhythm: regular Heart Sounds: Present: S1 & S2. Absent: gallop, rub Extremities: pulses intact, No edema, normal color, Full ROM - Gastrointestinal General gastrointestinal: Present: soft, non-tender, non-distended, normal bowel sounds - Genitourinary Male genitourinary: normal - Integumentary Integumentary: clear, warm, dry - Musculoskeletal Musculoskeletal: 1, strength equal bilaterally - Neurologic Neurologic: moves all extremities - Psychiatric Psychiatric: memory intact, appropriate mood/affect, intact judgment & insight - Labs CBC & Chem 7: 11/02/17 15:55 11/03/17 04:28 Labs: Abnormal lab results 11/03/17 11/03/17 11/03/17 Range/Units 01:16 04:28 04:28 Chloride 110.8 H (98-107) mmol/L Glucose 152 H (75-100) mg/dL Hemoglobin A1c 8.1 H (4-6) % Calcium 7.7 L (8.4-10.2) mg/dL C-Reactive Protein 3.70 H (0.00-1.30) mg/dL
[2017-11-04] MEDS: D5NS 1,000 ML IV SCH ×3 (01:41→18:48)
[2017-11-04] MEDS: FLAGYL 500 MG/100 ML 500 MG/100 ML BAG IV SCH ×3 (01:45→18:49)
[2017-11-04] MEDS: MAXIPIME 2 GM in NACL 0.9% 20 ML IV SCH ×3 (06:19→22:24)
[2017-11-04 08:11] LABS: Basophils % (Auto) 0.6 % (0.0-1.8); Eosinophils # (Auto) 0.2 K/mm3 (0.0-0.4); Eosinophils % (Auto) 2.7 % (0.0-4.3); Hematocrit 32.9 % (35.5-45.6); Hemoglobin 10.9 gm/dl (11.8-15.2); Lymphocytes # (Auto) 1.9 K/mm3 (1.2-5.4); Lymphocytes % (Auto) 28.7 % (13.4-35.0); Mean Corpuscular HGB Conc 33 % (32-34); Mean Corpuscular Hemoglobin 31 pg (28-32); Mean Corpuscular Volume 95 fl (84-94); Monocytes # (Auto) 0.6 K/mm3 (0.0-0.8); Monocytes % (Auto) 8.8 % (0.0-7.3); Platelet Count 278 K/mm3 (140-440); Red Blood Count 3.47 M/mm3 (3.65-5.03); Red Cell Distribution Width 17.4 % (13.2-15.2)
[2017-11-04 08:38] LABS: Alanine Aminotransferase 14 units/L (7-56); Albumin 2.3 g/dL (3.9-5); BUN/Creatinine Ratio 5; Blood Urea Nitrogen 3 mg/dL (9-20); Calcium 7.4 mg/dL (8.4-10.2); Hemolysis Index 17
[2017-11-04] MEDS: SODIUM CHLORIDE FLUSH SYRINGE 10 ML IV SCH ×2 (09:44→22:25)
[2017-11-04] MEDS: HEPARIN SUB-Q SCH ×2 (09:45→22:25)
[2017-11-04] MEDS: PEPCID IV SCH (09:45)
--- NOTE | 2017-11-04 10:26 | Progress Note ---
Assessment and Plan Assessment: 1) SIRS: better, fever resolved, ; etiology unclear, DDX recurrent bacteremia, persistent liver abscess 2) Recent Klebsiella septicemia: etiology likely complex liver abscess -Blood cx positive on 09/23/17 -Blood cx negative on 09/25/17 -UA was negative. -CT was unremarkable except for renal cysts and non obstructive stone. -Abd US + liver cirrhosis and hepatic mass 6.7 cm -HIDA neg -CRP=32 -->3.7 -AFP=1.5 3) Complex liver abscess: s/p partial right liver lobectomy at [facility] -MRI showing 6.1x7.9x8.6cm loculated mass in the right hepatic lobe with multiple septations ? complex abscess. -S/P IR drainage 09/29 culture +Klebsiella -repeat CT no changes collection went from 8.9x6.7 cm to 8.4x6.6 cm -transferred to [facility] 10/05/17 status post laparoscopic surgery for drainage, unclear details -CT 11/02 showed partial resection of the right hepatic lobe, no evidence of abscess 4) History of Gout Plan: -obtain records from [facility] - pending -follow-up blood cx -continue cefepime and flagyl Thank you for your consultation, will follow up with you. Mallory Orozco MD Infectious Diseases Specialist [facility] M [phone] O [phone] Subjective Date of service: 11/04/17 Principal diagnosis: Sepsis Interval history: Feels better, no fever, no pain Microbiology: Blood cultures: 09/23 Klebsiella pneumoniae 3 of 4 bottles 09/25 negative 11/02 ngtd Urine cultures: 09/23 no growth 11/02 neg IR drainage 09/29 Klebsiella Current Antimicrobials: cefepime flagyl Previous Antimicrobials: ceftriaxone 09/29-10/05 Zosyn Objective - Exam Narrative Exam: General appearance: Alert in NAD, conversant Eyes: anicteric sclerae, moist conjunctivae; no lid-lag; PERRLA HENT: Atraumatic; oropharynx clear with moist mucous membranes and no mucosal ulcerations/no oral thrush; normal hard and soft palate. Normal external ears. Neck: Trachea midline; supple, no thyromegaly or lymphadenopathy Lungs: CTA, with normal respiratory effort and no intercostal retractions CV: RRR, no murmurs Abdomen: Soft, mild tender to palpation right upper quadrant + postsurgical wounds well-healed Extremities: No peripheral edema or extremity lymphadenopathy Skin: Normal temperature, turgor and texture; no rash, ulcers or subcutaneous nodules Psych: Appropriate affect, alert and oriented to person, place and time. Neuro: alert and oriented x 3. Moving all extermities Lines: No CVL / PICC - Constitutional Vitals: Vital Signs Temp Pulse Resp BP Pulse Ox 97.0 F L 86 20 120/73 98 11/04/17 08:00 11/04/17 08:00 11/04/17 08:00 11/04/17 08:00 11/04/17 08:00 Temperature -Last 24 Hours Temperature 97.0 F Temperature 97.7 F Temperature 98.1 F Temperature 98.8 F Temperature 97.4 F Temperature 97.4 F Temperature 97.2 F - Labs CBC & Chem 7: 11/04/17 06:59 11/04/17 06:59 Labs: Abnormal lab results 11/03/17 11/04/17 11/04/17 Range/Units 04:28 06:59 06:59 RBC 3.47 L (3.65-5.03) M/mm3 Hgb 10.9 L (11.8-15.2) gm/dl Hct 32.9 L (35.5-45.6) % MCV 95 H (84-94) fl RDW 17.4 H (13.2-15.2) % [place] % (Auto) 8.8 H (0.0-7.3) % Potassium 3.0 L D (3.6-5.0) mmol/L BUN 3 L (9-20) mg/dL Creatinine 0.6 L (0.8-1.5) mg/dL Calcium 7.4 L (8.4-10.2) mg/dL C-Reactive Protein 3.70 H (0.00-1.30) mg/dL Total Protein 5.9 L (6.3-8.2) g/dL Albumin 2.3 L (3.9-5) g/dL
--- NOTE | 2017-11-04 16:14 | Progress Note ---
Assessment and Plan Severe sepsis with septic shock Fevers, with history of pyogenic/complex hepatic abscesses Lactic acidosis Moderate protein calorie malnutrition - VTE prophylaxis -Broad spectrum antibiotics, per ID -Follow up blood and urine cultures then de-escalate antibiotics based on FIDEL Subjective Date of service: 11/04/17 Principal diagnosis: Sepsis Objective - Exam Narrative Exam: General appearance: Alert in NAD, conversant Eyes: anicteric sclerae, moist conjunctivae; no lid-lag; PERRLA HENT: Atraumatic; oropharynx clear with moist mucous membranes and no mucosal ulcerations/no oral thrush; normal hard and soft palate. Normal external ears. Neck: Trachea midline; supple, no thyromegaly or lymphadenopathy Lungs: CTA, with normal respiratory effort and no intercostal retractions CV: RRR, no murmurs Abdomen: Soft, mild tender to palpation right upper quadrant + postsurgical wounds well-healed Extremities: No peripheral edema or extremity lymphadenopathy Skin: Normal temperature, turgor and texture; no rash, ulcers or subcutaneous nodules Psych: Appropriate affect, alert and oriented to person, place and time. Neuro: alert and oriented x 3. Moving all extermities Lines: No CVL / PICC Vital Signs - 12hr 11/04/17 11/04/17 11/04/17 04:41 08:00 11:41 Temperature 97.7 F 97.0 F L 97.7 F Pulse Rate 83 86 85 Respiratory 18 20 20 Rate Blood Pressure 116/67 120/73 121/68 O2 Sat by Pulse 98 98 98 Oximetry CBC and BMP: 11/04/17 06:59 11/04/17 06:59 ABG, PT/INR, D-dimer: PT/INR, D-dimer PT 15.1 Sec. (12.2-14.9) H 11/02/17 15:55 INR 1.13 (0.87-1.13) 11/02/17 15:55 Abnormal lab findings: Abnormal Labs 11/02/17 11/02/17 11/02/17 15:55 15:55 15:55 WBC 11.4 H RBC 3.36 L Hgb 10.4 L Hct 33.1 L MCV 99 H RDW 18.2 H Lymph % (Auto) 5.0 L [place] % (Auto) Lymph # 0.6 L Seg Neutrophils % 89.9 H Seg Neutrophils # 10.2 H PT 15.1 H Sodium 136 L Potassium Chloride Carbon Dioxide 19 L BUN Creatinine Glucose 124 H Hemoglobin A1c Lactic Acid Calcium 8.0 L Alkaline Phosphatase 155 H C-Reactive Protein Total Protein Albumin 2.8 L 11/02/17 11/03/17 11/03/17 15:55 01:16 04:28 WBC RBC Hgb Hct MCV RDW Lymph % (Auto) [place] % (Auto) Lymph # Seg Neutrophils % Seg Neutrophils # PT Sodium Potassium Chloride 110.8 H Carbon Dioxide BUN Creatinine Glucose 152 H Hemoglobin A1c 8.1 H Lactic Acid 7.20 H* Calcium 7.7 L Alkaline Phosphatase C-Reactive Protein Total Protein Albumin 11/03/17 11/04/17 11/04/17 04:28 06:59 06:59 WBC RBC 3.47 L Hgb 10.9 L Hct 32.9 L MCV 95 H RDW 17.4 H Lymph % (Auto) [place] % (Auto) 8.8 H Lymph # Seg Neutrophils % Seg Neutrophils # PT Sodium Potassium 3.0 L D Chloride Carbon Dioxide BUN 3 L Creatinine 0.6 L Glucose Hemoglobin A1c Lactic Acid Calcium 7.4 L Alkaline Phosphatase C-Reactive Protein 3.70 H Total Protein 5.9 L Albumin 2.3 L
--- NOTE | 2017-11-04 17:55 | Progress Note ---
Assessment and Plan - Patient Problems (1) Sepsis Current Visit: Yes Status: Acute Qualifiers: Sepsis type: sepsis due to unspecified organism Qualified Code(s): A41.9 - Sepsis, unspecified organism Plan to address problem: ID consult appreciated -started cefepime -continue flagyl -In view of complex abscess patient requires prolonged IV antibiotics probably 6 -8 weeks (2) Pyogenic hepatic abscess Current Visit: No Status: Acute Plan to address problem: Etiology unclear Klebsiella infection Records from [place] to be obtained IV Flagyl and Cefepime to continue (3) Hypotension Current Visit: Yes Status: Acute Qualifiers: Hypotension type: unspecified hypotension type Qualified Code(s): I95.9 - Hypotension, unspecified Plan to address problem: Secondary to sepsis IV fluids Central line inserted by the emergency room physician Dr. Carney (4) Lactic acidosis Current Visit: Yes Status: Acute Plan to address problem: Secondary to sepsis-resolved (5) Hyperlipidemia Current Visit: Yes Status: Chronic Qualifiers: Hyperlipidemia type: mixed hyperlipidemia Qualified Code(s): E78.2 - Mixed hyperlipidemia Plan to address problem: We'll hold the statins (6) DVT prophylaxis Current Visit: Yes Status: Acute Plan to address problem: Heparin 5000 subcutaneously every 12 hours Subjective Date of service: 11/04/17 Principal diagnosis: Sepsis Interval history: Sx better Objective - Exam Narrative Exam: Patient in mild distress - Constitutional Vitals: Vital Signs - 12hr 11/04/17 11/04/17 11/04/17 08:00 11:41 15:44 Temperature 97.0 F L 97.7 F 97.2 F L Pulse Rate 86 85 94 H Respiratory 20 20 20 Rate Blood Pressure 120/73 121/68 139/76 O2 Sat by Pulse 98 98 100 Oximetry General appearance: Present: no acute distress, well-nourished - EENT Eyes: PERRL, EOM intact ENT: hearing intact, clear oral mucosa Ears: bilateral: normal - Neck Neck: supple, normal ROM - Respiratory Respiratory effort: normal Respiratory: bilateral: CTA - Breasts Breasts: normal - Cardiovascular Rhythm: regular Heart Sounds: Present: S1 & S2. Absent: gallop, rub Extremities: pulses intact, No edema, normal color, Full ROM - Gastrointestinal General gastrointestinal: Present: soft, non-tender, non-distended, normal bowel sounds - Genitourinary Male genitourinary: normal - Integumentary Integumentary: clear, warm, dry - Musculoskeletal Musculoskeletal: 1, strength equal bilaterally - Neurologic Neurologic: moves all extremities - Psychiatric Psychiatric: memory intact, appropriate mood/affect, intact judgment & insight - Labs CBC & Chem 7: 18 06:59 18 06:59 Labs: Abnormal lab results 11/04/17 11/04/17 Range/Units 06:59 06:59 RBC 3.47 L (3.65-5.03) M/mm3 Hgb 10.9 L (11.8-15.2) gm/dl Hct 32.9 L (35.5-45.6) % MCV 95 H (84-94) fl RDW 17.4 H (13.2-15.2) % [place] % (Auto) 8.8 H (0.0-7.3) % Potassium 3.0 L D (3.6-5.0) mmol/L BUN 3 L (9-20) mg/dL Creatinine 0.6 L (0.8-1.5) mg/dL Calcium 7.4 L (8.4-10.2) mg/dL Total Protein 5.9 L (6.3-8.2) g/dL Albumin 2.3 L (3.9-5) g/dL
[2017-11-05] MEDS: FLAGYL 500 MG/100 ML 500 MG/100 ML BAG IV SCH ×3 (00:13→18:10)
[2017-11-05] MEDS: D5NS 1,000 ML IV SCH (04:37)
[2017-11-05] MEDS: MAXIPIME 2 GM in NACL 0.9% 20 ML IV SCH ×3 (06:43→22:12)
[2017-11-05 06:56] LABS: Basophils % (Auto) 0.6 % (0.0-1.8); Eosinophils # (Auto) 0.2 K/mm3 (0.0-0.4); Eosinophils % (Auto) 2.4 % (0.0-4.3); Hematocrit 31.2 % (35.5-45.6); Hemoglobin 10.3 gm/dl (11.8-15.2); Lymphocytes # (Auto) 2.2 K/mm3 (1.2-5.4); Lymphocytes % (Auto) 34.2 % (13.4-35.0); Mean Corpuscular HGB Conc 33 % (32-34); Mean Corpuscular Hemoglobin 31 pg (28-32); Mean Corpuscular Volume 93 fl (84-94); Monocytes # (Auto) 0.5 K/mm3 (0.0-0.8); Monocytes % (Auto) 8.4 % (0.0-7.3); Platelet Count 254 K/mm3 (140-440); Red Blood Count 3.35 M/mm3 (3.65-5.03); Red Cell Distribution Width 17.4 % (13.2-15.2)
[2017-11-05 07:18] LABS: Alanine Aminotransferase 17 units/L (7-56); Albumin 2.4 g/dL (3.9-5); BUN/Creatinine Ratio 4; Blood Urea Nitrogen 2 mg/dL (9-20); Calcium 7.5 mg/dL (8.4-10.2); Hemolysis Index 8
[2017-11-05] MEDS: SODIUM CHLORIDE FLUSH SYRINGE 10 ML IV SCH ×2 (09:13→22:18)
[2017-11-05] MEDS: HEPARIN SUB-Q SCH ×2 (09:14→22:13)
[2017-11-05] MEDS: PEPCID IV SCH (09:14)
--- NOTE | 2017-11-05 14:01 | Progress Note ---
Subjective Date of service: 11/05/17 Principal diagnosis: Sepsis Objective Vital Signs - 12hr 11/05/17 11/05/17 03:57 07:32 Temperature 98.4 F 98.7 F Pulse Rate 82 88 Respiratory 18 19 Rate Blood Pressure 124/67 125/70 O2 Sat by Pulse 98 96 Oximetry CBC and BMP: 11/05/17 06:34 11/05/17 06:34 ABG, PT/INR, D-dimer: PT/INR, D-dimer PT 15.1 Sec. (12.2-14.9) H 11/02/17 15:55 INR 1.13 (0.87-1.13) 11/02/17 15:55 Abnormal lab findings: Abnormal Labs 11/02/17 11/02/17 11/02/17 15:55 15:55 15:55 WBC 11.4 H RBC 3.36 L Hgb 10.4 L Hct 33.1 L MCV 99 H RDW 18.2 H Lymph % (Auto) 5.0 L [place] % (Auto) Lymph # 0.6 L Seg Neutrophils % 89.9 H Seg Neutrophils # 10.2 H PT 15.1 H Sodium 136 L Potassium Chloride Carbon Dioxide 19 L BUN Creatinine Glucose 124 H Hemoglobin A1c Lactic Acid Calcium 8.0 L Alkaline Phosphatase 155 H C-Reactive Protein Total Protein Albumin 2.8 L 11/02/17 11/03/17 11/03/17 15:55 01:16 04:28 WBC RBC Hgb Hct MCV RDW Lymph % (Auto) [place] % (Auto) Lymph # Seg Neutrophils % Seg Neutrophils # PT Sodium Potassium Chloride 110.8 H Carbon Dioxide BUN Creatinine Glucose 152 H Hemoglobin A1c 8.1 H Lactic Acid 7.20 H* Calcium 7.7 L Alkaline Phosphatase C-Reactive Protein Total Protein Albumin 11/03/17 11/04/17 11/04/17 04:28 06:59 06:59 WBC RBC 3.47 L Hgb 10.9 L Hct 32.9 L MCV 95 H RDW 17.4 H Lymph % (Auto) [place] % (Auto) 8.8 H Lymph # Seg Neutrophils % Seg Neutrophils # PT Sodium Potassium 3.0 L D Chloride Carbon Dioxide BUN 3 L Creatinine 0.6 L Glucose Hemoglobin A1c Lactic Acid Calcium 7.4 L Alkaline Phosphatase C-Reactive Protein 3.70 H Total Protein 5.9 L Albumin 2.3 L 11/05/17 11/05/17 06:34 06:34 WBC RBC 3.35 L Hgb 10.3 L Hct 31.2 L MCV RDW 17.4 H Lymph % (Auto) [place] % (Auto) 8.4 H Lymph # Seg Neutrophils % Seg Neutrophils # PT Sodium Potassium Chloride Carbon Dioxide BUN 2 L Creatinine 0.5 L Glucose 125 H Hemoglobin A1c Lactic Acid Calcium 7.5 L Alkaline Phosphatase C-Reactive Protein Total Protein 5.6 L Albumin 2.4 L
--- NOTE | 2017-11-05 14:58 | Progress Note ---
Assessment and Plan Patient resting on room air.O2 saturation 97%. No acute respiratory distress.Patient afebrile. - Patient Problems (1) Hypotension Current Visit: Yes Status: Acute Qualifiers: Hypotension type: unspecified hypotension type Qualified Code(s): I95.9 - Hypotension, unspecified Plan to address problem: Improved. Patients present blood pressure 125/62 (2) Lactic acidosis Current Visit: Yes Status: Acute Plan to address problem: Improving. (3) Sepsis Current Visit: Yes Status: Acute Qualifiers: Sepsis type: sepsis due to unspecified organism Qualified Code(s): A41.9 - Sepsis, unspecified organism Plan to address problem: Patient is on cefepime and Metronidazole. (4) Liver lesion, right lobe Current Visit: No Status: Acute Plan to address problem: Patient is on cefepime and metranidazole, in case it is liver abscess. (5) Renal insufficiency Current Visit: No Status: Acute Plan to address problem: Management as per primary care. Subjective Date of service: 11/05/17 Principal diagnosis: Sepsis Interval history: Patient resting on room air.O2 saturation 97%. No acute respiratory distress.Patient afebrile. Objective Vital Signs - 12hr 11/05/17 11/05/17 03:57 07:32 Temperature 98.4 F 98.7 F Pulse Rate 82 88 Respiratory 18 19 Rate Blood Pressure 124/67 125/70 O2 Sat by Pulse 98 96 Oximetry Constitutional: no acute distress, alert Eyes: non-icteric Neck: supple, no lymphadenopathy Ascultation: Bilateral: diminished breath sounds Cardiovascular: regular rate and rhythm Gastrointestinal: normoactive bowel sounds, soft, non-tender Integumentary: normal Extremities: no cyanosis, no edema Neurologic: non-focal exam, pupils equal and round Psychiatric: mood appropriate CBC and BMP: 11/05/17 06:34 11/05/17 06:34 ABG, PT/INR, D-dimer: PT/INR, D-dimer PT 15.1 Sec. (12.2-14.9) H 11/02/17 15:55 INR 1.13 (0.87-1.13) 11/02/17 15:55 Abnormal lab findings: Abnormal Labs 11/02/17 11/02/17 11/02/17 15:55 15:55 15:55 WBC 11.4 H RBC 3.36 L Hgb 10.4 L Hct 33.1 L MCV 99 H RDW 18.2 H Lymph % (Auto) 5.0 L [place] % (Auto) Lymph # 0.6 L Seg Neutrophils % 89.9 H Seg Neutrophils # 10.2 H PT 15.1 H Sodium 136 L Potassium Chloride Carbon Dioxide 19 L BUN Creatinine Glucose 124 H Hemoglobin A1c Lactic Acid Calcium 8.0 L Alkaline Phosphatase 155 H C-Reactive Protein Total Protein Albumin 2.8 L 11/02/17 11/03/17 11/03/17 15:55 01:16 04:28 WBC RBC Hgb Hct MCV RDW Lymph % (Auto) [place] % (Auto) Lymph # Seg Neutrophils % Seg Neutrophils # PT Sodium Potassium Chloride 110.8 H Carbon Dioxide BUN Creatinine Glucose 152 H Hemoglobin A1c 8.1 H Lactic Acid 7.20 H* Calcium 7.7 L Alkaline Phosphatase C-Reactive Protein Total Protein Albumin 11/03/17 11/04/17 11/04/17 04:28 06:59 06:59 WBC RBC 3.47 L Hgb 10.9 L Hct 32.9 L MCV 95 H RDW 17.4 H Lymph % (Auto) [place] % (Auto) 8.8 H Lymph # Seg Neutrophils % Seg Neutrophils # PT Sodium Potassium 3.0 L D Chloride Carbon Dioxide BUN 3 L Creatinine 0.6 L Glucose Hemoglobin A1c Lactic Acid Calcium 7.4 L Alkaline Phosphatase C-Reactive Protein 3.70 H Total Protein 5.9 L Albumin 2.3 L 11/05/17 11/05/17 06:34 06:34 WBC RBC 3.35 L Hgb 10.3 L Hct 31.2 L MCV RDW 17.4 H Lymph % (Auto) [place] % (Auto) 8.4 H Lymph # Seg Neutrophils % Seg Neutrophils # PT Sodium Potassium Chloride Carbon Dioxide BUN 2 L Creatinine 0.5 L Glucose 125 H Hemoglobin A1c Lactic Acid Calcium 7.5 L Alkaline Phosphatase C-Reactive Protein Total Protein 5.6 L Albumin 2.4 L Chest x-ray: report reviewed (Mild atelectasis mild left lower lobe infiltrate.) , image reviewed
--- NOTE | 2017-11-05 17:55 | Progress Note ---
Assessment and Plan - Patient Problems (1) Hypotension Current Visit: Yes Status: Acute Qualifiers: Hypotension type: unspecified hypotension type Qualified Code(s): I95.9 - Hypotension, unspecified Plan to address problem: Hypotension most likely secondary to sepsis hepatic abscess. Appears hemodynamically stable now. (2) Sepsis Current Visit: Yes Status: Acute Qualifiers: Sepsis type: sepsis due to unspecified organism Qualified Code(s): A41.9 - Sepsis, unspecified organism Plan to address problem: Secondary to hepatic abscess etiology possible Klebsiella. Oral course 6-8 weeks IV antibiotics. (3) Pyogenic hepatic abscess Current Visit: No Status: Acute Plan to address problem: Hepatic abscess Klebsiella. We'll need approximate 6-8 weeks of IV antibiotics. (4) SIRS (systemic inflammatory response syndrome) Current Visit: No Status: Acute History Interval history: Patient diagnosed with sepsis secondary to hepatic abscess. Patient laying in bed comfortable but flat affect. No new events overnight. Hospital course has been unremarkable over 24 hours. Hospitalist Physical - Constitutional Vitals: Temp Pulse Resp BP Pulse Ox 97.9 F 82 20 122/68 97 11/05/17 16:50 11/05/17 16:50 11/05/17 16:50 11/05/17 16:50 11/05/17 16:50 General appearance: Present: no acute distress, well-nourished - EENT Eyes: Present: PERRL, EOM intact ENT: clear oral mucosa, poor dentition - Neck Neck: Present: supple, normal ROM - Respiratory Respiratory effort: normal Respiratory: bilateral: CTA - Cardiovascular Rhythm: regular - Extremities Extremities: no ischemia, pulses intact, pulses symmetrical, No edema - Abdominal General gastrointestinal: soft, non-tender, non-distended, normal bowel sounds - Psychiatric Psychiatric: depressed, other (flat mood flat affect) - Neurologic Neurologic: CNII-XII intact, moves all extremities Results - Labs CBC & Chem 7: 11/05/17 06:34 11/05/17 06:34 Labs: Laboratory Last Values WBC 6.4 K/mm3 (4.5-11.0) 11/05/17 06:34 RBC 3.35 M/mm3 (3.65-5.03) L 11/05/17 06:34 Hgb 10.3 gm/dl (11.8-15.2) L 11/05/17 06:34 Hct 31.2 % (35.5-45.6) L 11/05/17 06:34 MCV 93 fl (84-94) 11/05/17 06:34 MCH 31 pg (28-32) 11/05/17 06:34 MCHC 33 % (32-34) 11/05/17 06:34 RDW 17.4 % (13.2-15.2) H 11/05/17 06:34 Plt Count 254 K/mm3 (140-440) 11/05/17 06:34 Lymph % (Auto) 34.2 % (13.4-35.0) 11/05/17 06:34 [place] % (Auto) 8.4 % (0.0-7.3) H 11/05/17 06:34 Eos % (Auto) 2.4 % (0.0-4.3) 11/05/17 06:34 Baso % (Auto) 0.6 % (0.0-1.8) 11/05/17 06:34 Lymph # 2.2 K/mm3 (1.2-5.4) 11/05/17 06:34 [place] # 0.5 K/mm3 (0.0-0.8) 11/05/17 06:34 Eos # 0.2 K/mm3 (0.0-0.4) 11/05/17 06:34 Baso # 0.0 K/mm3 (0.0-0.1) 11/05/17 06:34 Seg Neutrophils % 54.4 % (40.0-70.0) 11/05/17 06:34 Seg Neutrophils # 3.5 K/mm3 (1.8-7.7) 11/05/17 06:34 PT 15.1 Sec. (12.2-14.9) H 11/02/17 15:55 INR 1.13 (0.87-1.13) 11/02/17 15:55 APTT 30.7 Sec. (24.2-36.6) 11/02/17 15:55 VBG pH 7.374 (7.320-7.420) 11/02/17 15:55 Sodium 139 mmol/L (137-145) 11/05/17 06:34 Potassium 3.7 mmol/L (3.6-5.0) D 11/05/17 06:34 Chloride 106.9 mmol/L (98-107) 11/05/17 06:34 Carbon Dioxide 23 mmol/L (22-30) 11/05/17 06:34 Anion Gap 13 mmol/L 11/05/17 06:34 BUN 2 mg/dL (9-20) L 11/05/17 06:34 Creatinine 0.5 mg/dL (0.8-1.5) L 11/05/17 06:34 Estimated GFR > 60 ml/min 11/05/17 06:34 BUN/Creatinine Ratio 4 % 11/05/17 06:34 Glucose 125 mg/dL (75-100) H 11/05/17 06:34 Hemoglobin A1c 8.1 % (4-6) H 11/03/17 01:16 Lactic Acid 1.70 mmol/L (0.7-2.0) 11/02/17 17:12 Calcium 7.5 mg/dL (8.4-10.2) L 11/05/17 06:34 Total Bilirubin 0.50 mg/dL (0.1-1.2) 11/05/17 06:34 AST 38 units/L (5-40) 11/05/17 06:34 ALT 17 units/L (7-56) 11/05/17 06:34 Alkaline Phosphatase 117 units/L (35-129) 11/05/17 06:34 Troponin T < 0.010 ng/mL (0.00-0.029) 11/02/17 15:55 C-Reactive Protein 3.70 mg/dL (0.00-1.30) H 11/03/17 04:28 Total Protein 5.6 g/dL (6.3-8.2) L 11/05/17 06:34 Albumin 2.4 g/dL (3.9-5) L 11/05/17 06:34 Albumin/Globulin Ratio 0.8 % 11/05/17 06:34 Urine Color Yellow (Yellow) 11/02/17 16:00 Urine Turbidity Clear (Clear) 11/02/17 16:00 Urine pH 5.0 (5.0-7.0) 11/02/17 16:00 Ur Specific [place] 1.014 (1.003-1.030) 11/02/17 16:00 Urine Protein <15 mg/dl mg/dL (Negative) 11/02/17 16:00 Urine Glucose (UA) Neg mg/dL (Negative) 11/02/17 16:00 Urine Ketones Neg mg/dL (Negative) 11/02/17 16:00 Urine Blood Neg (Negative) 11/02/17 16:00 Urine Nitrite Neg (Negative) 11/02/17 16:00 Urine Bilirubin Neg (Negative) 11/02/17 16:00 Urine Urobilinogen < 2.0 mg/dL (<2.0) 11/02/17 16:00 Ur Leukocyte Esterase Neg (Negative) 11/02/17 16:00 Urine WBC (Auto) 1.0 /HPF (0.0-6.0) 11/02/17 16:00 Urine RBC (Auto) 3.0 /HPF (0.0-6.0) 11/02/17 16:00 U Epithel Cells (Auto) < 1.0 /HPF (0-13.0) 11/02/17 16:00 Amorphous Crystals Few 11/02/17 16:00 Urine Mucus Few /HPF 11/02/17 16:00 Blood Type B POSITIVE 11/02/17 16:19 Antibody Screen Negative 11/02/17 16:19
[2017-11-06] MEDS: FLAGYL 500 MG/100 ML 500 MG/100 ML BAG IV SCH ×2 (01:21→09:54)
[2017-11-06] MEDS: D5NS 1,000 ML IV SCH (06:53)
[2017-11-06] MEDS: MAXIPIME 2 GM in NACL 0.9% 20 ML IV SCH ×2 (06:54→14:37)
[2017-11-06] MEDS: HEPARIN SUB-Q SCH (09:55)
[2017-11-06] MEDS: PEPCID IV SCH (09:55)
[2017-11-06] MEDS: SODIUM CHLORIDE FLUSH SYRINGE 10 ML IV SCH (10:04)
--- NOTE | 2017-11-06 10:48 | Discharge Summary ---
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
--- NOTE | 2017-11-06 10:55 | Progress Note ---
Assessment and Plan Assessment: 1) SIRS: better, fever resolved ; etiology unclear -repeat blood cx negative -UA neg -CXR neg -CT abd 11/02 showed partial resection of the right hepatic lobe, no evidence of abscess 2) Recent Klebsiella septicemia: etiology likely complex liver abscess -Blood cx positive on 09/23/17 -Blood cx negative on 09/25/17 -UA was negative. -CT was unremarkable except for renal cysts and non obstructive stone. -Abd US + liver cirrhosis and hepatic mass 6.7 cm -HIDA neg -CRP=32 -->3.7 -AFP=1.5 3) Complex liver abscess: s/p lap hand-assisted partial right lobectomy at [facility] on 10/15/17 -MRI showing 6.1x7.9x8.6cm loculated mass in the right hepatic lobe with multiple septations ? complex abscess. -S/P IR drainage 09/29 culture +Klebsiella -repeat CT no changes collection went from 8.9x6.7 cm to 8.4x6.6 cm -transferred to [facility] 10/05/17, Echinococcus and Entamoeba serolgy negative -S/P lap hand-assisted partial right lobectomy at [facility] on 10/15/17 -CT 11/02 showed partial resection of the right hepatic lobe, no evidence of abscess 4) History of Gout Plan: -reviewed [facility] records -stop cefepime and flagyl - D4 -start levaquin 750 mg for 6 more day to complete 10 days - previous Klebsiella was sensitive to levaquin -ID clinic f/u in [address] Daigle I am signing off Thank you for your consultation, will follow up with you. Mallory Orozco MD Infectious Diseases Specialist [facility] M [phone] O [phone] Subjective Date of service: 11/06/17 Principal diagnosis: Sepsis Interval history: Feels better, no fever, no pain. Microbiology: Blood cultures: 09/23 Klebsiella pneumoniae 3 of 4 bottles 09/25 negative 11/02 neg Urine cultures: 09/23 no growth 11/02 neg IR drainage 09/29 Klebsiella Current Antimicrobials: cefepime flagyl Previous Antimicrobials: ceftriaxone 09/29-10/05 Zosyn Objective - Exam Narrative Exam: General appearance: Alert in NAD, conversant Eyes: anicteric sclerae, moist conjunctivae; no lid-lag; PERRLA HENT: Atraumatic; oropharynx clear with moist mucous membranes and no mucosal ulcerations/no oral thrush; normal hard and soft palate. Normal external ears. Neck: Trachea midline; supple, no thyromegaly or lymphadenopathy Lungs: CTA, with normal respiratory effort and no intercostal retractions CV: RRR, no murmurs Abdomen: Soft, mild tender to palpation right upper quadrant + postsurgical wounds well-healed Extremities: No peripheral edema or extremity lymphadenopathy Skin: Normal temperature, turgor and texture; no rash, ulcers or subcutaneous nodules Psych: Appropriate affect, alert and oriented to person, place and time. Neuro: alert and oriented x 3. Moving all extermities Lines: No CVL / PICC - Constitutional Vitals: Vital Signs Temp Pulse Resp BP Pulse Ox 98.3 F 92 H 16 126/67 99 11/06/17 07:54 11/06/17 07:54 11/06/17 07:54 11/06/17 07:54 11/06/17 07:54 Temperature -Last 24 Hours Temperature 98.3 F Temperature 98.9 F Temperature 98.9 F Temperature 98.3 F Temperature 97.9 F - Labs CBC & Chem 7: 11/05/17 06:34 11/05/17 06:34
[2017-11-06 12:27] VITALS: BP 122/73
--- NOTE | 2017-11-06 14:00 | Progress Note ---
Assessment and Plan Patient resting on room air.O2 saturation 98%. No acute respiratory distress.Patient afebrile. - Patient Problems (1) Hypotension Current Visit: Yes Status: Acute Qualifiers: Hypotension type: unspecified hypotension type Qualified Code(s): I95.9 - Hypotension, unspecified Plan to address problem: Improved. Patients present blood pressure 122/73 (2) Lactic acidosis Current Visit: Yes Status: Acute Plan to address problem: Improving. (3) Sepsis Current Visit: Yes Status: Acute Qualifiers: Sepsis type: sepsis due to unspecified organism Qualified Code(s): A41.9 - Sepsis, unspecified organism Plan to address problem: Patient is on cefepime and Metronidazole. (4) Liver lesion, right lobe Current Visit: No Status: Acute Plan to address problem: Patient is on cefepime and metranidazole, in case it is liver abscess. (5) Renal insufficiency Current Visit: No Status: Acute Plan to address problem: Management as per primary care. (6) Pulmonary infiltrate on chest x-ray Current Visit: Yes Status: Acute Plan to address problem: Patient is on cefepime and Metranidozole. Recommend to repeat chest xray. Subjective Date of service: 11/06/17 Principal diagnosis: Sepsis Interval history: Patient resting on room air.O2 saturation 98%. No acute respiratory distress.Patient afebrile. Objective Vital Signs - 12hr 11/06/17 11/06/17 11/06/17 04:35 07:54 11:55 Temperature 98.9 F 98.3 F 98.6 F Pulse Rate 89 92 H 105 H Respiratory 18 16 16 Rate Blood Pressure 128/71 126/67 122/73 O2 Sat by Pulse 98 99 98 Oximetry Constitutional: no acute distress, alert Eyes: non-icteric Neck: supple, no lymphadenopathy Ascultation: Bilateral: diminished breath sounds Cardiovascular: regular rate and rhythm Gastrointestinal: normoactive bowel sounds, soft, non-tender Integumentary: normal Extremities: no cyanosis, no edema Neurologic: non-focal exam, pupils equal and round Psychiatric: mood appropriate CBC and BMP: 11/05/17 06:34 11/05/17 06:34 ABG, PT/INR, D-dimer: PT/INR, D-dimer PT 15.1 Sec. (12.2-14.9) H 11/02/17 15:55 INR 1.13 (0.87-1.13) 11/02/17 15:55 Abnormal lab findings: Abnormal Labs 11/02/17 11/02/17 11/02/17 15:55 15:55 15:55 WBC 11.4 H RBC 3.36 L Hgb 10.4 L Hct 33.1 L MCV 99 H RDW 18.2 H Lymph % (Auto) 5.0 L [place] % (Auto) Lymph # 0.6 L Seg Neutrophils % 89.9 H Seg Neutrophils # 10.2 H PT 15.1 H Sodium 136 L Potassium Chloride Carbon Dioxide 19 L BUN Creatinine Glucose 124 H Hemoglobin A1c Lactic Acid Calcium 8.0 L Alkaline Phosphatase 155 H C-Reactive Protein Total Protein Albumin 2.8 L 11/02/17 11/03/17 11/03/17 15:55 01:16 04:28 WBC RBC Hgb Hct MCV RDW Lymph % (Auto) [place] % (Auto) Lymph # Seg Neutrophils % Seg Neutrophils # PT Sodium Potassium Chloride 110.8 H Carbon Dioxide BUN Creatinine Glucose 152 H Hemoglobin A1c 8.1 H Lactic Acid 7.20 H* Calcium 7.7 L Alkaline Phosphatase C-Reactive Protein Total Protein Albumin 11/03/17 11/04/17 11/04/17 04:28 06:59 06:59 WBC RBC 3.47 L Hgb 10.9 L Hct 32.9 L MCV 95 H RDW 17.4 H Lymph % (Auto) [place] % (Auto) 8.8 H Lymph # Seg Neutrophils % Seg Neutrophils # PT Sodium Potassium 3.0 L D Chloride Carbon Dioxide BUN 3 L Creatinine 0.6 L Glucose Hemoglobin A1c Lactic Acid Calcium 7.4 L Alkaline Phosphatase C-Reactive Protein 3.70 H Total Protein 5.9 L Albumin 2.3 L 11/05/17 11/05/17 06:34 06:34 WBC RBC 3.35 L Hgb 10.3 L Hct 31.2 L MCV RDW 17.4 H Lymph % (Auto) [place] % (Auto) 8.4 H Lymph # Seg Neutrophils % Seg Neutrophils # PT Sodium Potassium Chloride Carbon Dioxide BUN 2 L Creatinine 0.5 L Glucose 125 H Hemoglobin A1c Lactic Acid Calcium 7.5 L Alkaline Phosphatase C-Reactive Protein Total Protein 5.6 L Albumin 2.4 L
[2017-11-06] MEDS ORDERED: TRIPLE ANTIBIOTIC TP ONE (15:50)
== END 2017-11-06 18:00 | disposition home health service (06) | DRG 871 ==
LOC: ED 15:20 → CC1 19:01 → 3A 11-03 13:42
PROVIDERS: ADMIT Internal Medicine; ATTEND Internal Medicine
PROC: 02H633Z Insertion of Infusion Device into Right Atrium, Percutaneous Approach (ICD-10-PCS; principal; 2017-11-02)
PROC: B244ZZZ Ultrasonography of Right Heart (ICD-10-PCS; 2017-11-02)
DX: A41.9 Sepsis, unspecified organism (principal); K75.0 Abscess of liver; R65.21 Severe sepsis with septic shock; E44.0 Moderate protein-calorie malnutrition; I95.9 Hypotension, unspecified; K76.9 Liver disease, unspecified; N28.9 Disorder of kidney and ureter, unspecified; M10.9 Gout, unspecified; E78.5 Hyperlipidemia, unspecified; Z68.24 Body mass index [BMI] 24.0-24.9, adult; Z79.899 Other long term (current) drug therapy; Z82.49 Family history of ischemic heart disease and other diseases of the circulatory system
CPT/HCPCS: 36415; 71045; 74177; 80048; 80053; 81001; 82140; 82805; 83036; 84484; 85025; 85610; 85730; 86140; 86850; 86900; 86901; 87040; 87086; 93005; 93010; 96360; 96361; A6250; J0692; J1644; J2270; J2543; J7030; J7042; Q9967

== ENCOUNTER 2018-08-24 07:20 | Inpatient (IN) | payer MEDICARE, MEDICAID ==
[2018-08-24] MEDS ORDERED: HEPARIN/NS 5000 UNIT/500ML(CATH LAB) 1,000 ML IR ONE (08:28)
[2018-08-24] MEDS ORDERED: VERSED ONE (08:29)
[2018-08-24] MEDS ORDERED: SUBLIMAZE ONE (08:29)
[2018-08-24] MEDS ORDERED: XYLOCAINE 2% INFILTRATI ONE (08:29)
[2018-08-24] MEDS ORDERED: NITROGLYCERIN SYRINGE 3 ML ONE (08:29)
--- NOTE | 2018-08-24 08:36 | Emergency Department Report ---
ED Chest Pain HPI - General Chief Complaint: Chest Pain Stated Complaint: CHEST PAIN Time Seen by Provider: 08/24/18 08:30 Source: EMS Mode of arrival: Stretcher Limitations: Language Barrier - History of Present Illness Initial Comments: This is a 78-year-old man who I encountered on a gurney in the hallway soon after paramedics arrived. I had no prior notification of his history, status or EKGs obtained. The paramedics produced 3 EKGs,one they stated was obtained at or about 655 although the time was 7:11. This EKG met STEMI criteria. However, he was never transmitted because "it was taken by another truck". A repeat EKG was obtained which showed normalization of the ST elevation. A third prehospital EKG showed ST elevation once again. Based on these prehospital EKGs, a STEMI code was immediately called by me. Again, no prior EKGs were transmitted to me for review prior to the patient's arrival. The patient speaks no Bulgarian. With the assistance of a Monegasque family and divorce legal assistant I did ascertain that the patient had been having chest pain for 3 days. It is now persistent. History was very limited in time as the community center coordinator Dr. Glynn arrived; he was in the process of assuming care to take the patient to the lab. Blood pressure the patient in the field was normal. I was told by paramedics the patient chewed for aspirin. Another EKG was obtained by us here while the patient was on the [place] revealing inferior wall STEMI. ; Complaint: chest pain -: days(s) Onset: during rest Pain Location: left chest, right chest - Related Data Home Medications Medication Instructions Recorded Confirmed Last Taken Simvastatin 20 mg PO DAILY 09/24/17 11/06/17 2 Weeks Ago ~09/10/17 Previous Rx's Medication Instructions Recorded Last Taken Type Colchicine [Colcrys] 0.6 mg PO BID #60 tablet 10/05/17 Unknown Rx levoFLOXacin [Levaquin] 750 mg PO QDAY #7 tablet 11/06/17 Unknown Rx Allergies Allergy/AdvReac Type Severity Reaction Status Date / Time No Known Allergies Allergy Unverified 09/23/17 20:31 Heart Score - HEART Score History: Highly suspicious EKG: Significant ST-depression Age: > 65 Risk factors: > 3 risk factors or hx of atherosclerotic disease Troponin: 1-3x normal limit HEART Score: 9 - Critical Actions Critical Actions: >7 pts:50-65% risk of adverse cardiac event. Early invasive measures ED Review of Systems ROS: Stated complaint: CHEST PAIN Other details as noted in HPI Comment: Unobtainable due to pts medical conditions ED Past Medical Hx - Past Medical History Previous Medical History?: Yes Hx Hypertension: Yes Hx CVA: No Hx Heart Attack/AMI: No Hx Congestive Heart Failure: No Hx Diabetes: No Hx Deep Vein Thrombosis: No Hx Pulmonary Embolism: No Hx GERD: No Hx Liver Disease: No Hx Renal Disease: No Hx Sickle Cell Disease: No Hx Arthritis: No Hx Headaches / Migraines: No Hx Seizures: No Hx Kidney Stones: No Hx Psychiatric Treatment: No Hx Asthma: No Hx COPD: No Hx Tuberculosis: No Hx Dementia: No Hx HIV: No Additional medical history: Pyogenic hepatic abscess. Dyslipidemia - Surgical History Past Surgical History?: No Hx Coronary Stent: No Hx Open Heart Surgery: No Hx Pacemaker: No Hx Internal Defibrillator: No Hx Cholecystectomy: No Hx Appendectomy: No Hx Breast Surgery: No - Social History Smoking Status: Unknown if ever smoked - Medications Home Medications: Home Medications Medication Instructions Recorded Confirmed Last Taken Type Simvastatin 20 mg PO DAILY 09/24/17 11/06/17 2 Weeks Ago History ~09/10/17 Colchicine [Colcrys] 0.6 mg PO BID #60 tablet 10/05/17 11/06/17 Unknown Rx levoFLOXacin [Levaquin] 750 mg PO QDAY #7 tablet 11/06/17 Unknown Rx ED Physical Exam - General Limitations: Language Barrier General appearance: alert, in no apparent distress - Head Head exam: Present: atraumatic, normocephalic - Eye Eye exam: Present: normal appearance. Absent: scleral icterus - ENT ENT exam: Present: mucous membranes moist - Neck Neck exam: Present: normal inspection. Absent: tenderness, meningismus - Respiratory Respiratory exam: Present: normal lung sounds bilaterally. Absent: respiratory distress - Cardiovascular Cardiovascular Exam: Present: regular rate, normal rhythm. Absent: systolic murmur, diastolic murmur, rubs, gallop - GI/Abdominal GI/Abdominal exam: Present: soft, normal bowel sounds. Absent: distended, tenderness, guarding, rebound, rigid - Rectal Rectal exam: Present: deferred - Extremities Exam Extremities exam: Present: normal inspection - Back Exam Back exam: Present: normal inspection - Neurological Exam Neurological exam: Present: alert, oriented X3, other (no apparent lateralizing signs) - Psychiatric Psychiatric exam: Present: normal affect, normal mood - Skin Skin exam: Present: warm, dry, intact, normal color. Absent: rash ED Course Vital Signs 08/24/18 08:30 Pulse Rate 70 Respiratory 20 Rate Blood Pressure 120/78 [Left] O2 Sat by Pulse 97 Oximetry - Reevaluation(s) Reevaluation #1: The patient was expedited to the cardiac catheterization lab as he had signs of ST elevation [place]. The hospitalist, Dr. Maria was notified. Cardiac catheterization is in progress. 08/24/18 08:49 SHANE score - Shane Score Age > 65: (1) Yes Aspirin use within the Past 7 Days: (0) No 3 or more CAD Risk Factors: (1) Yes 2 or more Angina events in past 24 hrs: (1) Yes Known CAD with more than 50% Stenosis: (0) No Elevated Cardiac Markers: (1) Yes (presumptively) ST Deviation Greater than 0.5mm: (1) Yes SHANE Score: 5 ED Medical Decision Making - Lab Data Result diagrams: 08/24/18 08:20 08/24/18 08:20 Laboratory Results - last 24 hr 08/24/18 08/24/18 08/24/18 08:20 08:20 08:20 WBC 10.5 RBC 4.92 Hgb 16.1 H Hct 45.5 MCV 93 MCH 33 H MCHC 36 H RDW 13.2 Plt Count 247 Lymph % (Auto) 24.4 [place] % (Auto) 6.7 Eos % (Auto) 1.5 Baso % (Auto) 0.9 Lymph # 2.6 [place] # 0.7 Eos # 0.2 Baso # 0.1 Seg Neutrophils % 66.5 Seg Neutrophils # 7.0 PT 13.2 INR 0.95 APTT 20.3 L Sodium 141 Potassium 3.7 Chloride 107.8 H Carbon Dioxide 20 L Anion Gap 17 BUN 14 Creatinine 0.9 Estimated GFR > 60 BUN/Creatinine Ratio 16 Glucose 132 H Calcium 8.2 L Magnesium Total Bilirubin Direct Bilirubin AST ALT Alkaline Phosphatase Total Creatine Kinase CK-MB (CK-2) CK-MB (CK-2) Rel Index Troponin T 0.137 H* NT-Pro-B Natriuret Pep Total Protein Albumin Albumin/Globulin Ratio Triglycerides 236 H Cholesterol 183 LDL Cholesterol Direct 131 H HDL Cholesterol 41 Cholesterol/HDL Ratio 4.46 Blood Type Antibody Screen 08/24/18 08/24/18 08:20 08:20 WBC RBC Hgb Hct MCV MCH MCHC RDW Plt Count Lymph % (Auto) [place] % (Auto) Eos % (Auto) Baso % (Auto) Lymph # [place] # Eos # Baso # Seg Neutrophils % Seg Neutrophils # PT INR APTT Sodium Potassium Chloride Carbon Dioxide Anion Gap BUN Creatinine Estimated GFR BUN/Creatinine Ratio Glucose Calcium Magnesium 2.00 Total Bilirubin 0.70 Direct Bilirubin < 0.2 AST 37 ALT 22 Alkaline Phosphatase 68 Total Creatine Kinase 119 CK-MB (CK-2) 9.9 H CK-MB (CK-2) Rel Index 8.3 H Troponin T NT-Pro-B Natriuret Pep 196.1 Total Protein 6.5 Albumin 3.8 L Albumin/Globulin Ratio 1.4 Triglycerides Cholesterol LDL Cholesterol Direct HDL Cholesterol Cholesterol/HDL Ratio Blood Type B POSITIVE Antibody Screen Negative - EKG Data -: EKG Interpreted by Sc EKG shows normal: sinus rhythm - EKG Data Interpretation: other (inferior ST elevation [place]) Critical Care Time: Yes Critical care time in (mins) excluding proc time.: 30 Critical care attestation.: If time is entered above; I have spent that time in minutes in the direct care of this critically ill patient, excluding procedure time. ED Disposition Clinical Impression: ST elevation myocardial infarction (STEMI) of inferior wall Disposition: OP ADMIT IP TO THIS HOSP Is pt being admited?: Yes Does the pt Need Aspirin: Yes Condition: Stable Referrals: MELANI BAILON MD [Primary Care Provider] - 3-5 Days Time of Disposition: 09:24
[2018-08-24] MEDS ORDERED: NACL 0.9% 500 ML 500 ML ONE ×2 (08:37→09:05)
[2018-08-24 08:43] LABS: Basophils # (Auto) 0.1 K/mm3 (0.0-0.1); Basophils % (Auto) 0.9 % (0.0-1.8); Eosinophils # (Auto) 0.2 K/mm3 (0.0-0.4); Eosinophils % (Auto) 1.5 % (0.0-4.3); Hematocrit 45.5 % (35.5-45.6); Hemoglobin 16.1 gm/dl (11.8-15.2); Lymphocytes # (Auto) 2.6 K/mm3 (1.2-5.4); Lymphocytes % (Auto) 24.4 % (13.4-35.0); Mean Corpuscular HGB Conc 36 % (32-34); Mean Corpuscular Volume 93 fl (84-94); Monocytes # (Auto) 0.7 K/mm3 (0.0-0.8); Monocytes % (Auto) 6.7 % (0.0-7.3); Platelet Count 247 K/mm3 (140-440); Red Blood Count 4.92 M/mm3 (3.65-5.03); Red Cell Distribution Width 13.2 % (13.2-15.2)
[2018-08-24] MEDS: HEPARIN 10,000 UNITS/10 ML ONE ×3 (08:46→08:49)
[2018-08-24] MEDS: CALAN ONE ×2 (08:46→08:49)
[2018-08-24 08:52] LABS: INR 0.95 (0.87-1.13)
[2018-08-24 08:53] LABS: Partial Thromboplastin Time 20.3 Sec. (24.2-36.6)
[2018-08-24 08:54] LABS: BUN/Creatinine Ratio 16; Blood Urea Nitrogen 14 mg/dL (9-20); Calcium 8.2 mg/dL (8.4-10.2); Hemolysis Index 17
[2018-08-24 08:56] LABS: Creatine Kinase MB 9.9 ng/mL (0.0-4.0)
[2018-08-24 08:58] LABS: Alanine Aminotransferase 22 units/L (7-56); Albumin 3.8 g/dL (3.9-5)
[2018-08-24 09:00] LABS: Bilirubin,Direct < 0.2 mg/dL (0-0.2)
[2018-08-24] MEDS ORDERED: PLAVIX ONE (09:03)
[2018-08-24] MEDS ORDERED: ALUM-MAG HYDROX-SIMETH 200-200-20MG/5ML ONE (09:03)
[2018-08-24 09:12] LABS: Chol/HDL Ratio 4.46 %; HDL Cholesterol 41 mg/dL (40-59); LDL Cholesterol,Direct 131 mg/dL (50-130)
[2018-08-24] MEDS ORDERED: ULTRAM PO PRN (09:25)
[2018-08-24] MEDS ORDERED: ZOFRAN IV PRN ×2 (09:25→09:36)
--- NOTE | 2018-08-24 09:35 | History and Physical Report ---
History of Present Illness Chief complaint: Chest pain History of present illness: 78 YO Male with HTN, HLD presents to ED for evaluation. Pt is non bulgarian speaking, but history is taken with the help of a software consultant. per software consultant, the patient reports that he has experienced pain in his chest over the past 3 d ays. Pain was initially intermittent, but is now constant. Pt reports that pain is 6/10, constant, worsened with exertion, not relieved with rest, substernal, nonradiating. EMS notified and upon arrival the patient was found to be in distress and transported to [facility]. Pt seen and evaluated in ED and found to have EKG findings consistent with STEMI. A code STEMI was called and Cardiology team notified in ED. Pt taken urgently to tree tapping laborer for intervention. Pt admitted to ICU. No further history obtainable. Admission on 11/02/17 reviewed. Medication reconciled at time of exam. Left heart cath revealed the following: LAD proximal 50% diagonal oxygen 20% circumflex. Obtuse marginal. RCA large d ominant proximal 100% at PCI of the proximal RCA with a drug-eluting resolute 3.5 x 18 mm. Past History Past Medical History: hypertension, hyperlipidemia Past Surgical History: Other (Hepatectomy) Social history: single. denies: smoking, alcohol abuse, prescription drug abuse Family history: no significant family history (reviewed) Medications and Allergies Allergies Allergy/AdvReac Type Severity Reaction Status Date / Time No Known Allergies Allergy Unverified 09/23/17 20:31 Home Medications Medication Instructions Recorded Confirmed Last Taken Type Simvastatin 20 mg PO DAILY 09/24/17 11/06/17 2 Weeks Ago History ~09/10/17 Colchicine [Colcrys] 0.6 mg PO BID #60 tablet 10/05/17 11/06/17 Unknown Rx levoFLOXacin [Levaquin] 750 mg PO QDAY #7 tablet 11/06/17 Unknown Rx Active Meds: Active Medications Aspirin (Baby Aspirin) 81 mg PO QDAY MICHELLE Atorvastatin Calcium (Lipitor) 80 mg PO QHS MICHELLE Clopidogrel Bisulfate (Plavix) 75 mg PO QDAY MICHELLE Sodium Chloride (Nacl 0.9% 1000 Ml) 1,000 mls @ 100 mls/hr IV DIRECT MICHELLE Stop: 08/24/18 19:59 Ondansetron HCl (Zofran) 4 mg IV Q8H PRN PRN Reason: N/V unrelieved by Reglan Tramadol HCl (Ultram) 50 mg PO Q4H PRN PRN Reason: Pain, Mild (1-3) Review of Systems Constitutional: no weight loss, no weight gain, no fever, no chills Ears, nose, mouth and throat: no ear pain, no ear discharge, no tinnitis, no decreased hearing Cardiovascular: chest pain Respiratory: no cough, no cough with sputum, no excessive sputum Gastrointestinal: no abdominal pain, no nausea, no vomiting, no diarrhea, no constipation Genitourinary Male: no hematuria, no flank pain, no discharge, no urinary frequency, no urinary hesitancy, no nocturia Rectal: no pain, no incontinence, no bleeding Musculoskeletal: no neck stiffness, no neck pain, no shooting arm pain, no arm numbness/tingling, no low back pain, no shooting leg pain Integumentary: no rash, no pruritis, no redness, no sores, no wounds Neurological: no paralysis, no weakness, no parathesias, no numbness, no tingling, no seizures Psychiatric: no anxiety, no memory loss, no change in sleep habits, no sleep disturbances, no insomnia, no hypersomnia Endocrine: no cold intolerance, no heat intolerance, no polyphagia, no excessive thirst, no polydipsia, no polyuria Hematologic/Lymphatic: no easy bruising, no easy bleeding Allergic/Immunologic: no urticaria, no allergic rhinitis, no wheezing Exam - Constitutional Vitals: Temp Pulse Resp BP Pulse Ox 70 20 120/78 97 08/24/18 08:30 08/24/18 08:30 08/24/18 08:30 08/24/18 08:30 General appearance: Present: mild distress - EENT Eyes: Present: PERRL ENT: hearing intact, clear oral mucosa - Neck Neck: Present: supple, normal ROM - Respiratory Respiratory effort: normal Respiratory: bilateral: CTA - Cardiovascular Heart Sounds: Present: S1 & S2. Absent: rub, click - Extremities Extremities: pulses symmetrical, No edema Peripheral Pulses: within normal limits - Abdominal General gastrointestinal: Present: soft, non-tender, non-distended, normal bowel sounds Male genitourinary: Present: normal - Integumentary Integumentary: Present: clear, warm, dry - Musculoskeletal Musculoskeletal: gait normal, strength equal bilaterally - Psychiatric Psychiatric: appropriate mood/affect, intact judgment & insight - Neurologic Neurologic: CNII-XII intact, moves all extremities Results - Labs CBC & Chem 7: 08/24/18 08:20 08/24/18 08:20 Labs: Abnormal lab results 08/24/18 08/24/18 08/24/18 Range/Units 08:20 08:20 08:20 Hgb 16.1 H (11.8-15.2) gm/dl MCH 33 H (28-32) pg MCHC 36 H (32-34) % APTT 20.3 L (24.2-36.6) Sec. Chloride 107.8 H (98-107) mmol/L Carbon Dioxide 20 L (22-30) mmol/L Glucose 132 H (75-100) mg/dL Calcium 8.2 L (8.4-10.2) mg/dL CK-MB (CK-2) (0.0-4.0) ng/mL CK-MB (CK-2) Rel Index (0-4) Troponin T 0.137 H* (0.00-0.029) ng/mL Albumin (3.9-5) g/dL Triglycerides 236 H (2-149) mg/dL LDL Cholesterol Direct 131 H (50-130) mg/dL 08/24/18 Range/Units 08:20 Hgb (11.8-15.2) gm/dl MCH (28-32) pg MCHC (32-34) % APTT (24.2-36.6) Sec. Chloride (98-107) mmol/L Carbon Dioxide (22-30) mmol/L Glucose (75-100) mg/dL Calcium (8.4-10.2) mg/dL CK-MB (CK-2) 9.9 H (0.0-4.0) ng/mL CK-MB (CK-2) Rel Index 8.3 H (0-4) Troponin T (0.00-0.029) ng/mL Albumin 3.8 L (3.9-5) g/dL Triglycerides (2-149) mg/dL LDL Cholesterol Direct (50-130) mg/dL Assessment and Plan - Patient Problems (1) STEMI (ST elevation myocardial infarction) Current Visit: Yes Status: Acute Plan to address problem: Admit to ICU, Cardiology Consulted in ED, Pt is S/P cardiac cath, supportive care, pain control, nitro drip, DAPT, Pulmonary team consulted in ED. The high probability of a clinically significant, sudden or life threatening deterioration of the [cardiac, renal, neuro] system(s) required my full and direct attention, intervention and personal management. The aggregate critical care time was [65] minutes. This time is in addition to time spent performing reported procedures but includes the following: [x] Data Review and interpretation [x] Patient assessment and monitoring of vital signs [x] Documentation [x] Medication orders and management (2) HTN (hypertension) Current Visit: Yes Status: Acute Qualifiers: Hypertension type: essential hypertension Qualified Code(s): I10 - Xavier avery (primary) hypertension Plan to address problem: Monitor bp q shift, continue current therapy, (3) HLD (hyperlipidemia) Current Visit: Yes Status: Acute Qualifiers: Hyperlipidemia type: mixed hyperlipidemia Qualified Code(s): E78.2 - Mixed hyperlipidemia Plan to address problem: Low cholesterol diet, risk factor modification therapy, statin therapy, (4) DVT prophylaxis Current Visit: No Status: Acute Plan to address problem: SCD to BLE While in bed.
[2018-08-24] MEDS ORDERED: PROVENTIL IH PRN (09:36)
[2018-08-24] MEDS ORDERED: SODIUM CHLORIDE FLUSH SYRINGE 10 ML IV PRN (09:36)
[2018-08-24] MEDS ORDERED: TYLENOL PO PRN (09:36)
[2018-08-24] MEDS ORDERED: MORPHINE IV ONE (09:53)
[2018-08-24] MEDS ORDERED: ZOFRAN IV ONE (09:53)
[2018-08-24] MEDS ORDERED: NON-FORMULARY (Simvastatin [Simvastatin] 20 MG) PO SCH (10:00)
[2018-08-24] MEDS ORDERED: COLCHICINE 0.6 MG PO SCH (10:00)
[2018-08-24] MEDS ORDERED: NACL 0.9% 1000 ML 1,000 ML IV SCH (10:00)
[2018-08-24] MEDS ORDERED: MORPHINE ONE (10:04)
--- NOTE | 2018-08-24 10:46 | Cardiac Catherization Report ---
LEFT HEART CATHETERIZATION/PERCUTANEOUS CORONARY INTERVENTIONAL/INTRAVASCULAR ULTRASOUND REPORT CLINICAL INFORMATION: This is a 78-year-old Malay speaking male who has history of hypertension, no diabetes, cholesterol, who has been having on and off chest pain for the last 2-3 days, was brought by EMS. Initial EKG did not meet criteria: The patient received aspirin, nitroglycerin in ED, stabbing pain. EKG shows acute inferior wall [place] with posterior changes and brought emergently to label remover. Done under moderate sedation, total sedation time started at 08:42, finished at 09: 04 which is 22 minutes of moderate sedation. Left heart catheterization performed via the right radial artery, sterile technique, local anesthesia, 6-Bruneian radial sheath inserted. Left system engaged with a JL3.5 catheter with following findings: Left main large and patent, bifurcates into the medium caliber LAD with moderate tortuosity, proximal diffuse 40-50%, diagonal 1 small caliber vessel, proximal 20%. Diagonal 2 small caliber. Circumflex is a medium caliber vessel, goes into a small to medium caliber, OM1 that is patent with mild luminal irregularities with moderate to severe tortuosity. Distal circ small caliber vessel. RCA is engaged with JR4, is 100%, proximal. LV gram shows mild LV dysfunction with inferior wall akinesis. Percutaneous coronary intervention of the RCA: 1. Engaged JR4 guiding catheter. 2. Crossed into the distal RCA with short [place] wire. 3. Ballooned with a 2.5 x 12 mm balloon at 12 atmospheres x 2 inflations, restored SHANE 3 flow, which revealed large, dominant vessel, distal RCA had 40-50% and PLV distally had a 20% upper and lower branch, PDA is patent. 4. Intravascular ultrasound showed reference vessel 4.0 x 3.5. 5. Stented proximal RCA with a drug-eluting Resolute Justino 3.5 x 18 mm at 20 atmospheres. Excellent angiographic result, gave intracoronary nitro, SHANE 3 flow is still present. Reduced stenosis 0%. Same distal, 40% distal RCA and 30% distal PLV disease, but SHANE 3 flow. EKG has normalized. Chest pain has improved. Coronary wire was removed. Multiple angiograms, continued SHANE 3 flow and stent well opposed and expanded. 6. 6-Bruneian guiding catheter taken over the guidewire, 6-Bruneian radial sheath was discontinued. Radial band applied. No hematoma, no bleeding. ACT was 351. SUMMARY: 1. Successful PCI of the proximal RCA with a drug-eluting Resolute 3.5 x 18 at 20 atmospheres. The patient has distal RCA 40% and PLV 30%. We will treat medically. 2. Post-PCI care. Continue aspirin and Plavix 600 loading, high dose statin. Hold off beta blockers, FABIO inhibitor in view of low blood pressure. Continue IV fluids. 3. Left main patent LAD, proximal 50%, diagonal one 20%, circ patent. OM1 patent with mild luminal irregularities. JOB# [id number] PHONG/KAM
--- NOTE | 2018-08-24 10:58 | History and Physical Report ---
History of Present Illness Date of examination: 08/24/18 Date of admission: 08/24/2018 Chief complaint: acute mi History of present illness: 78-year-old Bulgarian male history is obtained by her friend patient has no family here. States on review of records patient was transferred to [place] for hepatic abscess and had a partial removal of the liver did not require further treatment was done in September 2017. Patient was seen in the office in March for atypical chest pain with negative stress test and normal LV function echocardiogram. Patient presents via EMS with chest pain on and off for last 2 to 3 days midsternal nonradiating no nausea no vomiting no syncope. EKG in the field showed mild elevation inferiorly but resolved after nitroglycerin EKG in the ED were having chest pain chest diagnostic EKG for acute ST elevation inferiorly patient was brought to the Docent Coordinator. Left heart cath via the right radial approach revealed left main. LAD proximal 50% diagonal oxygen 20% circumflex. Obtuse marginal. RCA large dominant proximal 100% at PCI of the proximal RCA with a drug-eluting resolute 3.5 x 18 mm. Post EKG shows improvement in ST elevation and some pain still is on a nitro drip patient did have thrombus and sluggish flow in one time but improved after nitroglycerin into the coronary. Past History Past Medical History: hypertension, hyperlipidemia Past Surgical History: Other (partial liver removal for hepatic abscess at [place] September 2017) Social history: single. denies: smoking, alcohol abuse Family history: denies: no significant family history Medications and Allergies Allergies Allergy/AdvReac Type Severity Reaction Status Date / Time No Known Allergies Allergy Unverified 09/23/17 20:31 Home Medications Medication Instructions Recorded Confirmed Last Taken Type Simvastatin 20 mg PO DAILY 09/24/17 11/06/17 2 Weeks Ago History ~09/10/17 Colchicine [Colcrys] 0.6 mg PO BID #60 tablet 10/05/17 11/06/17 Unknown Rx levoFLOXacin [Levaquin] 750 mg PO QDAY #7 tablet 11/06/17 Unknown Rx Active Meds: Active Medications Acetaminophen (Tylenol) 650 mg PO Q4H PRN PRN Reason: Pain MILD(1-3)/Fever >100.5/[facility]ODMAN Albuterol (Proventil) 2.5 mg IH Q4HRT PRN PRN Reason: Shortness Of Breath Aspirin (Baby Aspirin) 81 mg PO QDAY [facility] Atorvastatin Calcium (Lipitor) 80 mg PO QHS [facility] Clopidogrel Bisulfate (Plavix) 75 mg PO QDAY [facility] Colchicine (Colchicine) 0.6 mg PO BID [facility] Sodium Chloride (Nacl 0.9% 1000 Ml) 1,000 mls @ 100 mls/hr IV DIRECT MICHELLE Stop: 08/24/18 19:59 Nitroglycerin/Dextrose (Tridil Drip 50mg/250ml) 50 mg in 250 mls @ 6 mls/hr IV TITR MICHELLE; Protocol Last Admin: 08/24/18 10:35 Dose: 20 mcg/min, 6 mls/hr Documented by: Ondansetron HCl (Zofran) 4 mg IV Q8H PRN PRN Reason: N/V unrelieved by Reglan Ondansetron HCl (Zofran) 4 mg IV Q8H PRN PRN Reason: Nausea And Vomiting Pravastatin Sodium (Pravachol) 40 mg PO QHS [facility] Sodium Chloride (Sodium Chloride Flush Syringe 10 Ml) 10 ml IV BID MICHELLE Sodium Chloride (Sodium Chloride Flush Syringe 10 Ml) 10 ml IV PRN PRN PRN Reason: LINE FLUSH Tramadol HCl (Ultram) 50 mg PO Q4H PRN PRN Reason: Pain, Mild (1-3) Review of Systems All systems: negative (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 Negative: Audible Murmur Lungs: Positive: clear to auscultation, Normal Breath Sounds Neuro: Positive: Grossly Intact Abdomen: Positive: Soft, Active Bowel Sounds. Negative: Tender, Distended Male genitourinary: Positive: normal Skin: Positive: Clear Incision: Cardiac Cath Site (no hemtoma) Musculoskeletal: No Pain, Normal Range of Motion Extremities: Present: normal. Absent: edema Results 08/24/18 08:20 08/24/18 08:20 Cardiac Enzymes 08/24/18 Range/Units 08:20 AST 37 (5-40) units/L CK-MB (CK-2) 9.9 H (0.0-4.0) ng/mL Coagulation 08/24/18 Range/Units 08:20 PT 13.2 (12.2-14.9) Sec. INR 0.95 (0.87-1.13) APTT 20.3 L (24.2-36.6) Sec. Lipids 08/24/18 Range/Units 08:20 Triglycerides 236 H (2-149) mg/dL Cholesterol 183 (50-199) mg/dL HDL Cholesterol 41 (40-59) mg/dL Cholesterol/HDL Ratio 4.46 % CBC 08/24/18 Range/Units 08:20 WBC 10.5 (4.5-11.0) K/mm3 RBC 4.92 (3.65-5.03) M/mm3 Hgb 16.1 H (11.8-15.2) gm/dl Hct 45.5 (35.5-45.6) % Plt Count 247 (140-440) K/mm3 Lymph # 2.6 (1.2-5.4) K/mm3 [place] # 0.7 (0.0-0.8) K/mm3 Eos # 0.2 (0.0-0.4) K/mm3 Baso # 0.1 (0.0-0.1) K/mm3 Comprehensive Metabolic Panel 08/24/18 08/24/18 Range/Units 08:20 08:20 Sodium 141 (137-145) mmol/L Potassium 3.7 (3.6-5.0) mmol/L Chloride 107.8 H (98-107) mmol/L Carbon Dioxide 20 L (22-30) mmol/L BUN 14 (9-20) mg/dL Creatinine 0.9 (0.8-1.5) mg/dL Glucose 132 H (75-100) mg/dL Calcium 8.2 L (8.4-10.2) mg/dL Direct Bilirubin < 0.2 (0-0.2) mg/dL AST 37 (5-40) units/L ALT 22 (7-56) units/L Alkaline Phosphatase 68 (35-129) units/L Total Protein 6.5 (6.3-8.2) g/dL Albumin 3.8 L (3.9-5) g/dL - Imaging and Cardiology Echo: report reviewed (03/2018 normal lv function in office) Cardiac cath: report reviewed (08/24/2018 Left heart cath via the right radial approach revealed left main. LAD proximal 50% diagonal oxygen 20% circumflex. Obtuse marginal. RCA large dominant proximal 100% at PCI of the proximal RCA with a drug-eluting resolute 3.5 x 18 mm) EKG interpretations - Telemetry EKG Rhythm: Sinus Rhythm (acute inferior wall mi with inferior q waves) Assessment and Plan 76-10 with acute inferior wall NH with pain for last 2-3 days had PTCA of the proximal RCA with drug-eluting resolution 3.5 x 18 mm patient had some improvement STDs but not Resolution with inferior Q waves may be aneurysmal as LV gram shows akinesis of the inferior wall. Patient will be on IV nitroglycerin is on aspirin and Plavix high-dose statin hold off beta luis alberto FABIO inhibitor ARB in view of low blood pressure discussed with patient's friend has no family here about prognosis which is guarded at this time - Patient Problems (1) Hypertension Current Visit: Yes Status: Chronic Qualifiers: Hypertension type: essential hypertension Qualified Code(s): I10 - Essential (primary) hypertension (2) Hyperlipemia, mixed Current Visit: Yes Status: Chronic (3) Acute diastolic CHF (congestive heart failure) Current Visit: Yes Status: Acute (4) ST elevation myocardial infarction (STEMI) of inferior wall Current Visit: Yes Status: Acute
[2018-08-24] MEDS ORDERED: TRIDIL DRIP 50MG/250ML 50 MG/250 ML BOTTLE IV SCH (11:00)
--- NOTE | 2018-08-24 12:28 | Consultation ---
History of Present Illness Consult date: 08/24/18 Reason for consult: chest pain, other (STEMI) History of present illness: Call to evaluate a 38-year-old male, who speaks minimal Estonian at best, admitted with chest pain and suspected STEMI. See chart notes. He underwent cardiac catheterization with Dr. Glynn, with findings of inferior OR and depressed right/left ventricular function. Pending admission to the ICU after heart, pulmonary critical care has to evaluate and follow concurrently. Currently he is on a nitro drip at postcatheterization recovery room. He denies any chest pain. He denies any shortness of breath. Apparently no recent smoking history but possibly remote smoke exposure present. No additional complaints at this time. Past History Past Medical History: No medical history, hypertension, hyperlipidemia Past Surgical History: Other (Hepatectomy) Social history: single. denies: smoking, alcohol abuse, prescription drug abuse Family history: no significant family history (reviewed) Medications and Allergies Allergies Allergy/AdvReac Type Severity Reaction Status Date / Time No Known Allergies Allergy Unverified 09/23/17 20:31 Home Medications Medication Instructions Recorded Confirmed Last Taken Type Simvastatin 20 mg PO DAILY 09/24/17 11/06/17 2 Weeks Ago History ~09/10/17 Colchicine [Colcrys] 0.6 mg PO BID #60 tablet 10/05/17 11/06/17 Unknown Rx levoFLOXacin [Levaquin] 750 mg PO QDAY #7 tablet 11/06/17 Unknown Rx Active Meds: Active Medications Acetaminophen (Tylenol) 650 mg PO Q4H PRN PRN Reason: Pain MILD(1-3)/Fever >100.5/[facility] Albuterol (Proventil) 2.5 mg IH Q4HRT PRN PRN Reason: Shortness Of Breath Aspirin (Baby Aspirin) 81 mg PO QDAY MICHELLE Atorvastatin Calcium (Lipitor) 80 mg PO QHS MICHELLE Clopidogrel Bisulfate (Plavix) 75 mg PO QDAY MICHELLE Colchicine (Colchicine) 0.6 mg PO BID MICHELLE Sodium Chloride (Nacl 0.9% 1000 Ml) 1,000 mls @ 100 mls/hr IV DIRECT MICHELLE Stop: 08/24/18 19:59 Nitroglycerin/Dextrose (Tridil Drip 50mg/250ml) 50 mg in 250 mls @ 6 mls/hr IV TITR MICHELLE; Protocol Last Admin: 08/24/18 10:35 Dose: 20 mcg/min, 6 mls/hr Documented by: Ondansetron HCl (Zofran) 4 mg IV Q8H PRN PRN Reason: N/V unrelieved by Regscotty Ondansetron HCl (Zofran) 4 mg IV Q8H PRN PRN Reason: Nausea And Vomiting Pravastatin Sodium (Pravachol) 40 mg PO QHS MICHELLE Sodium Chloride (Sodium Chloride Flush Syringe 10 Ml) 10 ml IV BID MICHELLE Sodium Chloride (Sodium Chloride Flush Syringe 10 Ml) 10 ml IV PRN PRN PRN Reason: LINE FLUSH Tramadol HCl (Ultram) 50 mg PO Q4H PRN PRN Reason: Pain, Mild (1-3) Physical Examination Vital signs: Vital Signs Pulse Resp BP Pulse Ox 70 20 120/78 97 08/24/18 08:30 08/24/18 08:30 08/24/18 08:30 08/24/18 08:30 General appearance: no acute distress Eyes: non-icteric ENT: oropharynx moist Neck: supple, no JVD Ascultation: Bilateral: clear Cardiovascular: regular rate and rhythm Gastrointestinal: normoactive bowel sounds, non-distended Integumentary: normal Extremities: no cyanosis, no edema Musculoskeletal: no deformities normal mental status, non-focal exam, CN II-XII normal mood appropriate, affect normal Results - Laboratory Findings CBC and BMP: 08/24/18 08:20 08/24/18 08:20 PT/INR, D-dimer PT 13.2 Sec. (12.2-14.9) 08/24/18 08:20 INR 0.95 (0.87-1.13) 08/24/18 08:20 Abnormal lab findings: Abnormal Labs 08/24/18 08/24/18 08/24/18 08:20 08:20 08:20 Hgb 16.1 H MCH 33 H MCHC 36 H APTT 20.3 L Activated Clotting Time Chloride 107.8 H Carbon Dioxide 20 L Glucose 132 H Calcium 8.2 L CK-MB (CK-2) CK-MB (CK-2) Rel Index Troponin T 0.137 H* Albumin Triglycerides 236 H LDL Cholesterol Direct 131 H 08/24/18 08/24/18 08:20 09:04 Hgb MCH MCHC APTT Activated Clotting Time 351 H Chloride Carbon Dioxide Glucose Calcium CK-MB (CK-2) 9.9 H CK-MB (CK-2) Rel Index 8.3 H Troponin T Albumin 3.8 L Triglycerides LDL Cholesterol Direct - Diagnostic Findings Chest x-ray: report reviewed, image reviewed Assessment and Plan STEMI -Inferior OR Former smoker CAD Recommendations Post Care orders per cardiology Monitor blood pressure and hemodynamics Fluid challenge as necessary. Monitor for chest pain Continue oxygen support maintain oximetry around 93% No chest congestion at the present time so I will withhold any bronchodilator therapy and monitor clinically DVT prophylaxis
[2018-08-24] MEDS: COLCHICINE PO SCH (21:42)
[2018-08-24] MEDS: SODIUM CHLORIDE FLUSH SYRINGE 10 ML IV SCH (21:45)
[2018-08-24] MEDS ORDERED: PRAVACHOL PO SCH (22:00)
--- NOTE | 2018-08-25 03:47 | XRay Report ---
PROCEDURE: XR CHEST 1V AP TECHNIQUE: A portable upright view the chest was obtained. HISTORY: ROUTINE POST PCI COMPARISONS: 11/02/2017 FINDINGS: The heart size is normal. The lungs are not overly congested. There is interstitial prominence in bot h lungs which appears to be on a chronic basis. There are no acute infiltrates or pneumothorax. Pleur al fluid is not seen. The skeletal structures do not show any acute changes. IMPRESSION: Chronic changes. No acute process in the chest.. This document is electronically signed by Major Monroe MD., August 25 2018 03:45:11 AM ET
[2018-08-25 05:33] LABS: Basophils % (Auto) 0.5 % (0.0-1.8); Eosinophils # (Auto) 0.2 K/mm3 (0.0-0.4); Eosinophils % (Auto) 1.5 % (0.0-4.3); Lymphocytes # (Auto) 2.3 K/mm3 (1.2-5.4); Mean Corpuscular HGB Conc 35 % (32-34); Mean Corpuscular Volume 93 fl (84-94); Monocytes # (Auto) 0.9 K/mm3 (0.0-0.8); Monocytes % (Auto) 8.7 % (0.0-7.3); Platelet Count 229 K/mm3 (140-440); Red Blood Count 4.62 M/mm3 (3.65-5.03); Red Cell Distribution Width 13.5 % (13.2-15.2)
[2018-08-25 05:52] LABS: BUN/Creatinine Ratio 14; Blood Urea Nitrogen 13 mg/dL (9-20); Calcium 8.2 mg/dL (8.4-10.2); Creatine Kinase MB 138.8 ng/mL (0.0-4.0); Hemolysis Index 7
--- NOTE | 2018-08-25 08:50 | Progress Note ---
Assessment and Plan pt is off nitro drip, via logistics coordinator is feeling much better troponins are trending down at low dose beta luis alberto and oral nitrates. Echocardiogram shows relatively normal LV function with mild posterior wall hypokinesis mild mitral regurgitation. Patient will be transferred to telemetry to ambulate and monitor symptomology. - Patient Problems (1) Hypertension Current Visit: Yes Status: Chronic Qualifiers: Hypertension type: essential hypertension Qualified Code(s): I10 - Essential (primary) hypertension (2) Hyperlipemia, mixed Current Visit: Yes Status: Chronic (3) Acute diastolic CHF (congestive heart failure) Current Visit: Yes Status: Acute (4) ST elevation myocardial infarction (STEMI) of inferior wall Current Visit: Yes Status: Acute Subjective Date of service: 08/25/18 Principal diagnosis: acute mi Interval history: via logistics coordinator, feeling much better, mild chest discomfort Objective Vital Signs Temp Pulse Resp BP Pulse Ox 08/25/18 08:00 97.9 F 66 17 113/58 96 08/25/18 07:30 66 18 114/57 95 08/25/18 07:00 61 16 132/68 94 08/25/18 06:30 62 10 L 122/68 94 08/25/18 06:00 64 17 110/63 93 08/25/18 05:30 81 16 115/55 93 08/25/18 05:00 64 16 112/60 91 08/25/18 04:30 72 20 117/66 91 08/25/18 04:00 98.1 F 70 18 115/66 93 08/25/18 03:30 68 15 107/59 92 08/25/18 03:00 67 15 105/54 93 08/25/18 02:30 72 15 95/48 91 08/25/18 02:00 63 18 99/52 94 08/25/18 01:30 68 17 98/52 93 08/25/18 01:00 71 14 104/55 92 08/25/18 00:30 63 18 99/56 92 08/25/18 00:11 62 17 97/52 94 08/25/18 00:00 98.0 F 65 18 97/52 90 08/24/18 23:30 63 15 98/51 93 08/24/18 23:00 62 17 118/57 91 08/24/18 22:30 65 18 118/57 93 08/24/18 22:00 61 12 115/60 92 08/24/18 21:30 63 16 109/64 92 08/24/18 21:00 59 L 18 119/66 95 08/24/18 20:30 59 L 19 111/57 93 08/24/18 20:00 97.7 F 66 18 122/59 94 08/24/18 19:30 67 15 08/24/18 19:00 64 22 122/59 08/24/18 17:30 71 21 157/76 08/24/18 17:20 65 21 133/76 08/24/18 17:10 65 23 133/76 08/24/18 17:00 68 24 133/76 08/24/18 16:50 68 17 133/76 08/24/18 16:44 70 21 133/76 08/24/18 16:30 62 17 133/76 08/24/18 16:24 99 08/24/18 16:20 58 L 18 107/57 08/24/18 16:10 62 21 107/57 08/24/18 16:00 97.6 F 65 17 125/74 08/24/18 15:50 59 L 13 117/67 08/24/18 15:40 60 19 117/67 08/24/18 15:30 61 22 117/67 08/24/18 15:20 62 22 102/48 08/24/18 15:10 61 13 102/48 08/24/18 15:00 58 L 17 107/57 08/24/18 14:50 61 17 102/48 08/24/18 14:40 59 L 14 102/48 08/24/18 14:30 62 14 103/52 08/24/18 14:24 99 08/24/18 14:20 59 L 17 103/52 08/24/18 14:10 57 L 16 111/51 08/24/18 14:00 59 L 17 111/51 08/24/18 13:50 60 17 110/44 08/24/18 13:40 67 19 08/24/18 12:30 51 L 16 107/66 97 08/24/18 12:00 58 L 19 110/63 95 08/24/18 11:30 54 L 16 107/66 97 08/24/18 11:00 59 L 20 115/75 94 08/24/18 10:45 56 L 18 131/81 93 08/24/18 10:30 62 19 129/78 94 08/24/18 10:15 59 L 20 134/76 94 08/24/18 10:00 97.5 F L 61 19 124/85 98 - Physical Examination General: No Apparent Distress HEENT: Positive: PERRL, Mucus Membranes Moist Neck: Positive: neck supple, trachea midline Cardiac: Positive: Reg Rate and Rhythm Lungs: Positive: clear to auscultation Neuro: Positive: Grossly Intact Abdomen: Positive: Soft, Active Bowel Sounds. Negative: Tender, Distended Skin: Positive: Clear Incision: Cardiac Cath Site (no hemtoma) Musculoskeletal: No Pain, Normal Range of Motion Extremities: Present: normal. Absent: edema - Labs and Meds Cardiac Enzymes 08/24/18 08/25/18 Range/Units 08:20 04:30 AST 37 (5-40) units/L CK-MB (CK-2) 9.9 H 138.8 H (0.0-4.0) ng/mL Coagulation 08/24/18 Range/Units 08:20 PT 13.2 (12.2-14.9) Sec. INR 0.95 (0.87-1.13) APTT 20.3 L (24.2-36.6) Sec. Lipids 08/24/18 Range/Units 08:20 Triglycerides 236 H (2-149) mg/dL Cholesterol 183 (50-199) mg/dL HDL Cholesterol 41 (40-59) mg/dL Cholesterol/HDL Ratio 4.46 % CBC 08/24/18 08/25/18 Range/Units 08:20 04:30 WBC 10.5 10.1 (4.5-11.0) K/mm3 RBC 4.92 4.62 (3.65-5.03) M/mm3 Hgb 16.1 H 15.0 (11.8-15.2) gm/dl Hct 45.5 43.0 (35.5-45.6) % Plt Count 247 229 (140-440) K/mm3 Lymph # 2.6 2.3 (1.2-5.4) K/mm3 [place] # 0.7 0.9 H (0.0-0.8) K/mm3 Eos # 0.2 0.2 (0.0-0.4) K/mm3 Baso # 0.1 0.0 (0.0-0.1) K/mm3 Comprehensive Metabolic Panel 08/24/18 08/24/18 08/25/18 Range/Units 08:20 08:20 04:30 Sodium 141 138 (137-145) mmol/L Potassium 3.7 3.6 (3.6-5.0) mmol/L Chloride 107.8 H 103.8 (98-107) mmol/L Carbon Dioxide 20 L 21 L (22-30) mmol/L BUN 14 13 (9-20) mg/dL Creatinine 0.9 0.9 (0.8-1.5) mg/dL Glucose 132 H 121 H (75-100) mg/dL Calcium 8.2 L 8.2 L (8.4-10.2) mg/dL Direct Bilirubin < 0.2 (0-0.2) mg/dL AST 37 (5-40) units/L ALT 22 (7-56) units/L Alkaline Phosphatase 68 (35-129) units/L Total Protein 6.5 (6.3-8.2) g/dL Albumin 3.8 L (3.9-5) g/dL - Imaging and Cardiology Echo: report reviewed (03/2018 normal lv function in office), other (08/24/2018 normal lv function, mild posterior wall hypokinesis, mild mr ) Cardiac cath: report reviewed (08/24/2018 Left heart cath via the right radial approach revealed left main. LAD proximal 50% diagonal oxygen 20% circumflex. Obtuse marginal. RCA large dominant proximal 100% at PCI of the proximal RCA with a drug-eluting resolute 3.5 x 18 mm) - Telemetry EKG Rhythm: Sinus Rhythm
--- NOTE | 2018-08-25 08:56 | Progress Note ---
Assessment and Plan STEMI -Inferior AR Former smoker CAD Recommendations Post Care orders per cardiology Monitor blood pressure and hemodynamics Plan the possible transfer out of the ICU per cardiology May benefit from COPD evaluation as an outpatient later on DVT prophylaxis We'll continue to follow while in the unit and then we'll sign off Subjective Date of service: 08/25/18 Principal diagnosis: acute mi Interval history: No chest complains Objective Vital Signs - 12hr 08/24/18 08/24/18 08/24/18 21:00 21:30 22:00 Temperature Pulse Rate 59 L 63 61 Respiratory 18 16 12 Rate Blood Pressure 119/66 109/64 115/60 O2 Sat by Pulse 95 92 92 Oximetry 08/24/18 08/24/18 08/24/18 22:30 23:00 23:30 Temperature Pulse Rate 65 62 63 Respiratory 18 17 15 Rate Blood Pressure 118/57 118/57 98/51 O2 Sat by Pulse 93 91 93 Oximetry 08/25/18 08/25/18 08/25/18 00:00 00:11 00:30 Temperature 98.0 F Pulse Rate 65 62 63 Respiratory 18 17 18 Rate Blood Pressure 97/52 97/52 99/56 O2 Sat by Pulse 90 94 92 Oximetry 08/25/18 08/25/18 08/25/18 01:00 01:30 02:00 Temperature Pulse Rate 71 68 63 Respiratory 14 17 18 Rate Blood Pressure 104/55 98/52 99/52 O2 Sat by Pulse 92 93 94 Oximetry 08/25/18 08/25/18 08/25/18 02:30 03:00 03:30 Temperature Pulse Rate 72 67 68 Respiratory 15 15 15 Rate Blood Pressure 95/48 105/54 107/59 O2 Sat by Pulse 91 93 92 Oximetry 08/25/18 08/25/18 08/25/18 04:00 04:30 05:00 Temperature 98.1 F Pulse Rate 70 72 64 Respiratory 18 20 16 Rate Blood Pressure 115/66 117/66 112/60 O2 Sat by Pulse 93 91 91 Oximetry 08/25/18 08/25/18 08/25/18 05:30 06:00 06:30 Temperature Pulse Rate 81 64 62 Respiratory 16 17 10 L Rate Blood Pressure 115/55 110/63 122/68 O2 Sat by Pulse 93 93 94 Oximetry 08/25/18 08/25/18 08/25/18 07:00 07:30 08:00 Temperature 97.9 F Pulse Rate 61 66 66 Respiratory 16 18 17 Rate Blood Pressure 132/68 114/57 113/58 O2 Sat by Pulse 94 95 96 Oximetry Constitutional: no acute distress Eyes: non-icteric ENT: oropharynx moist Neck: supple, no JVD Ascultation: Bilateral: clear Cardiovascular: regular rate and rhythm Gastrointestinal: normoactive bowel sounds, non-distended Integumentary: normal Extremities: no cyanosis, no edema Neurologic: normal mental status, non-focal exam, CN II-XII normal Psychiatric: mood appropriate, affect normal CBC and BMP: 08/26/18 04:43 08/26/18 04:43 ABG, PT/INR, D-dimer: PT/INR, D-dimer PT 13.2 Sec. (12.2-14.9) 08/24/18 08:20 INR 0.95 (0.87-1.13) 08/24/18 08:20 Abnormal lab findings: Abnormal Labs 08/24/18 08/24/18 08/24/18 08:20 08:20 08:20 Hgb 16.1 H MCH 33 H MCHC 36 H [place]ett % (Auto) [place]ett # APTT 20.3 L Activated Clotting Time Chloride 107.8 H Carbon Dioxide 20 L Glucose 132 H POC Glucose Calcium 8.2 L Total Creatine Kinase CK-MB (CK-2) CK-MB (CK-2) Rel Index Troponin T 0.137 H* Albumin Triglycerides 236 H LDL Cholesterol Direct 131 H 08/24/18 08/24/18 08/24/18 08:20 09:04 13:21 Hgb MCH MCHC [place] % (Auto) [place] # APTT Activated Clotting Time 351 H Chloride Carbon Dioxide Glucose POC Glucose 132 H Calcium Total Creatine Kinase CK-MB (CK-2) 9.9 H CK-MB (CK-2) Rel Index 8.3 H Troponin T Albumin 3.8 L Triglycerides LDL Cholesterol Direct 08/24/18 08/24/18 08/24/18 13:32 14:35 18:43 Hgb MCH MCHC [place] % (Auto) [place] # APTT Activated Clotting Time Chloride Carbon Dioxide Glucose POC Glucose 135 H Calcium Total Creatine Kinase CK-MB (CK-2) CK-MB (CK-2) Rel Index Troponin T 2.740 H* D 3.240 H* Albumin Triglycerides LDL Cholesterol Direct 08/25/18 08/25/18 04:30 04:30 Hgb MCH 33 H MCHC 35 H [place] % (Auto) 8.7 H [place] # 0.9 H APTT Activated Clotting Time Chloride Carbon Dioxide 21 L Glucose 121 H POC Glucose Calcium 8.2 L Total Creatine Kinase 1240 H CK-MB (CK-2) 138.8 H CK-MB (CK-2) Rel Index 11.1 H Troponin T 3.860 H* Albumin Triglycerides LDL Cholesterol Direct
--- NOTE | 2018-08-25 10:12 | Progress Note ---
Assessment and Plan Assessment and plan: --ST elevation [place]; Cardiac catheterization Status post PCI Continue dual platelet therapy, beta blockers, tete inhibitors and nitrates Statins, --Rhabdomyolysis; CK 1240, gentle hydration, if no improvement hold statin --Hypertension; continue current antihypertensives and when necessary medications --Dyslipidemia; on high intensity statin, low cholesterol diet --DVT prophylaxis SCDs Monitor the patient closely and adjust management as needed Patient is stable to be transferred out of ICU to telemetry History Interval history: Patient seen and examined medical records reviewed Admitted with ST elevation [place] Cardiac catheterization status post PCI to RCA with ARNOLD Patient feels better no new complaints Vital signs reviewed Hospitalist Physical - Constitutional Vitals: Temp Pulse Resp BP Pulse Ox 97.9 F 66 17 113/58 93 08/25/18 08:00 08/25/18 08:00 08/25/18 08:00 08/25/18 08:00 08/25/18 09:01 General appearance: Present: no acute distress, well-nourished - EENT Eyes: Present: PERRL, EOM intact - Neck Neck: Present: supple, normal ROM - Respiratory Respiratory effort: normal Respiratory: bilateral: diminished, negative: rales, rhonchi, wheezing - Cardiovascular Rhythm: regular Heart Sounds: Present: S1 & S2 - Extremities Extremities: no ischemia, No edema - Abdominal General gastrointestinal: soft, non-tender, non-distended, normal bowel sounds - Integumentary Integumentary: Present: clear, warm - Psychiatric Psychiatric: appropriate mood/affect, cooperative - Neurologic Neurologic: CNII-XII intact, moves all extremities Results - Labs CBC & Chem 7: 08/25/18 04:30 08/25/18 04:30 Labs: Laboratory Last Values WBC 10.1 K/mm3 (4.5-11.0) 08/25/18 04:30 RBC 4.62 M/mm3 (3.65-5.03) 08/25/18 04:30 Hgb 15.0 gm/dl (11.8-15.2) 08/25/18 04:30 Hct 43.0 % (35.5-45.6) 08/25/18 04:30 MCV 93 fl (84-94) 08/25/18 04:30 MCH 33 pg (28-32) H 08/25/18 04:30 MCHC 35 % (32-34) H 08/25/18 04:30 RDW 13.5 % (13.2-15.2) 08/25/18 04:30 Plt Count 229 K/mm3 (140-440) 08/25/18 04:30 Lymph % (Auto) 23.0 % (13.4-35.0) 08/25/18 04:30 [place] % (Auto) 8.7 % (0.0-7.3) H 08/25/18 04:30 Eos % (Auto) 1.5 % (0.0-4.3) 08/25/18 04:30 Baso % (Auto) 0.5 % (0.0-1.8) 08/25/18 04:30 Lymph # 2.3 K/mm3 (1.2-5.4) 08/25/18 04:30 [place] # 0.9 K/mm3 (0.0-0.8) H 08/25/18 04:30 Eos # 0.2 K/mm3 (0.0-0.4) 08/25/18 04:30 Baso # 0.0 K/mm3 (0.0-0.1) 08/25/18 04:30 Seg Neutrophils % 66.3 % (40.0-70.0) 08/25/18 04:30 Seg Neutrophils # 6.7 K/mm3 (1.8-7.7) 08/25/18 04:30 PT 13.2 Sec. (12.2-14.9) 08/24/18 08:20 INR 0.95 (0.87-1.13) 08/24/18 08:20 APTT 20.3 Sec. (24.2-36.6) L 08/24/18 08:20 Activated Clotting Time 351 (74-137) H 08/24/18 09:04 Sodium 138 mmol/L (137-145) 08/25/18 04:30 Potassium 3.6 mmol/L (3.6-5.0) 08/25/18 04:30 Chloride 103.8 mmol/L (98-107) 08/25/18 04:30 Carbon Dioxide 21 mmol/L (22-30) L 08/25/18 04:30 Anion Gap 17 mmol/L 08/25/18 04:30 BUN 13 mg/dL (9-20) 08/25/18 04:30 Creatinine 0.9 mg/dL (0.8-1.5) 08/25/18 04:30 Estimated GFR > 60 ml/min 08/25/18 04:30 BUN/Creatinine Ratio 14 % 08/25/18 04:30 Glucose 121 mg/dL (75-100) H 08/25/18 04:30 POC Glucose 135 (70-105) H 08/24/18 18:43 Calcium 8.2 mg/dL (8.4-10.2) L 08/25/18 04:30 Magnesium 2.00 mg/dL (1.7-2.3) 08/24/18 08:20 Total Bilirubin 0.70 mg/dL (0.1-1.2) 08/24/18 08:20 Direct Bilirubin < 0.2 mg/dL (0-0.2) 08/24/18 08:20 AST 37 units/L (5-40) 08/24/18 08:20 ALT 22 units/L (7-56) 08/24/18 08:20 Alkaline Phosphatase 68 units/L (35-129) 08/24/18 08:20 Total Creatine Kinase 1240 units/L (55-170) H 08/25/18 04:30 CK-MB (CK-2) 138.8 ng/mL (0.0-4.0) H 08/25/18 04:30 CK-MB (CK-2) Rel Index 11.1 (0-4) H 08/25/18 04:30 Troponin T 3.860 ng/mL (0.00-0.029) H* 08/25/18 04:30 NT-Pro-B Natriuret Pep 196.1 pg/mL (0-900) 08/24/18 08:20 Total Protein 6.5 g/dL (6.3-8.2) 08/24/18 08:20 Albumin 3.8 g/dL (3.9-5) L 08/24/18 08:20 Albumin/Globulin Ratio 1.4 % 08/24/18 08:20 Triglycerides 236 mg/dL (2-149) H 08/24/18 08:20 Cholesterol 183 mg/dL (50-199) 08/24/18 08:20 LDL Cholesterol Direct 131 mg/dL (50-130) H 08/24/18 08:20 HDL Cholesterol 41 mg/dL (40-59) 08/24/18 08:20 Cholesterol/HDL Ratio 4.46 % 08/24/18 08:20 Blood Type B POSITIVE 08/24/18 12:00 Antibody Screen Negative 08/24/18 12:00 Active Medications - Current Medications Current Medications: Generic Name Dose Route Start Last Admin Trade Name Freq PRN Reason Stop Dose Admin Acetaminophen 650 mg 08/24/18 09:36 Tylenol PO Q4H PRN Pain MILD(1-3)/Fever >100.5/GOODMAN Albuterol 2.5 mg 08/24/18 09:36 Proventil IH Q4HRT PRN Shortness Of Breath Aspirin 81 mg 08/24/18 10:00 Baby Aspirin PO QDAY MICHELLE Atorvastatin Calcium 80 mg 08/24/18 22:00 08/24/18 21:43 Lipitor PO 80 mg QHS MICHELLE Administration Clopidogrel Bisulfate 75 mg 08/25/18 10:00 Plavix PO QDAY MICHELLE Colchicine 0.6 mg 08/24/18 12:00 08/24/18 21:42 Colchicine PO 0.6 mg BID MICHELLE Administration Nitroglycerin/Dextrose 50 mg in 250 mls @ 6 mls/hr 08/24/18 11:00 08/25/18 05:45 Tridil Drip 50mg/250ml IV 0 mcg/min TITR MICHELLE 0 mls/hr Titration Protocol 20 MCG/MIN Isosorbide Mononitrate 30 mg 08/25/18 10:00 Imdur PO QDAY MICHELLE Metoprolol Tartrate 25 mg 08/25/18 10:00 Lopressor PO BID MICHELLE Ondansetron HCl 4 mg 08/24/18 09:25 Zofran IV Q8H PRN N/V unrelieved by Reglan Sodium Chloride 10 ml 08/24/18 10:00 08/24/18 21:45 Sodium Chloride Flush Syringe 10 Ml IV 10 ml BID MICHELLE Administration Sodium Chloride 10 ml 08/24/18 09:36 Sodium Chloride Flush Syringe 10 Ml IV PRN PRN LINE FLUSH Tramadol HCl 50 mg 08/24/18 09:25 Ultram PO Q4H PRN Pain, Mild (1-3)
[2018-08-25] MEDS: LOPRESSOR PO SCH ×2 (10:13→21:56)
[2018-08-25] MEDS: IMDUR PO SCH (10:14)
[2018-08-25] MEDS: BABY ASPIRIN PO SCH (10:17)
[2018-08-25] MEDS: SODIUM CHLORIDE FLUSH SYRINGE 10 ML IV SCH ×2 (10:21→21:56)
[2018-08-25] MEDS: COLCHICINE PO SCH (10:21)
[2018-08-25] MEDS: PLAVIX PO SCH (10:22)
[2018-08-26 05:35] LABS: Basophils % (Auto) 0.4 % (0.0-1.8); Eosinophils # (Auto) 0.3 K/mm3 (0.0-0.4); Eosinophils % (Auto) 3.1 % (0.0-4.3); Hematocrit 42.7 % (35.5-45.6); Hemoglobin 14.9 gm/dl (11.8-15.2); Lymphocytes # (Auto) 2.7 K/mm3 (1.2-5.4); Lymphocytes % (Auto) 27.5 % (13.4-35.0); Mean Corpuscular HGB Conc 35 % (32-34); Mean Corpuscular Volume 93 fl (84-94); Monocytes # (Auto) 1.2 K/mm3 (0.0-0.8); Monocytes % (Auto) 11.7 % (0.0-7.3); Platelet Count 214 K/mm3 (140-440); Red Blood Count 4.59 M/mm3 (3.65-5.03)
[2018-08-26 05:47] LABS: Alanine Aminotransferase 27 units/L (7-56); Albumin 3.5 g/dL (3.9-5); BUN/Creatinine Ratio 13; Blood Urea Nitrogen 13 mg/dL (9-20); Calcium 8.3 mg/dL (8.4-10.2); Hemolysis Index 23
--- NOTE | 2018-08-26 09:50 | Progress Note ---
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 Echocardiogram shows relatively normal LV function with mild posterior wall hypokinesis mild mitral regurgitation. ambulate and atypical chest pain and no change in ekg, may discharge in pm - Patient Problems (1) Hypertension Current Visit: Yes Status: Chronic Qualifiers: Hypertension type: essential hypertension Qualified Code(s): I10 - Essential (primary) hypertension (2) Hyperlipemia, mixed Current Visit: Yes Status: Chronic (3) Acute diastolic CHF (congestive heart failure) Current Visit: Yes Status: Acute (4) ST elevation myocardial infarction (STEMI) of inferior wall Current Visit: Yes Status: Acute Subjective Date of service: 08/26/18 Principal diagnosis: acute mi Interval history: pt has some atypical chest pain Objective Vital Signs Temp Pulse Resp BP Pulse Ox 08/26/18 08:46 98.4 F 72 18 134/79 93 08/26/18 04:00 98.0 F 81 18 119/75 93 08/25/18 23:31 98.0 F 65 18 116/64 93 08/25/18 20:56 69 08/25/18 19:45 98.0 F 69 18 116/64 93 08/25/18 15:16 97.9 F 70 18 111/70 94 08/25/18 14:30 65 19 105/51 96 08/25/18 14:00 59 L 17 102/57 96 08/25/18 13:30 62 18 98/49 95 08/25/18 13:00 69 24 167/147 94 08/25/18 12:30 63 14 115/67 95 08/25/18 12:00 98.8 F 72 21 126/61 94 08/25/18 11:30 68 16 125/68 94 08/25/18 11:00 70 20 125/69 95 08/25/18 10:30 74 16 146/74 95 08/25/18 10:14 76 131/69 08/25/18 10:13 76 131/69 08/25/18 10:00 66 22 131/69 96 - Physical Examination General: No Apparent Distress HEENT: Positive: PERRL, Mucus Membranes Moist Neck: Positive: neck supple, trachea midline Cardiac: Positive: Reg Rate and Rhythm Lungs: Positive: clear to auscultation Neuro: Positive: Grossly Intact Abdomen: Positive: Soft, Active Bowel Sounds. Negative: Tender, Distended Skin: Positive: Clear Incision: Cardiac Cath Site (no hemtoma) Musculoskeletal: No Pain, Normal Range of Motion Extremities: Present: normal. Absent: edema - Labs and Meds Cardiac Enzymes 08/24/18 08/26/18 Range/Units 08:20 04:43 AST 37 65 H (5-40) units/L CK-MB (CK-2) 9.9 H (0.0-4.0) ng/mL Coagulation 08/24/18 Range/Units 08:20 PT 13.2 (12.2-14.9) Sec. INR 0.95 (0.87-1.13) APTT 20.3 L (24.2-36.6) Sec. Lipids 08/24/18 Range/Units 08:20 Triglycerides 236 H (2-149) mg/dL Cholesterol 183 (50-199) mg/dL HDL Cholesterol 41 (40-59) mg/dL Cholesterol/HDL Ratio 4.46 % CBC 08/24/18 08/26/18 Range/Units 08:20 04:43 WBC 10.5 9.9 (4.5-11.0) K/mm3 RBC 4.92 4.59 (3.65-5.03) M/mm3 Hgb 16.1 H 14.9 (11.8-15.2) gm/dl Hct 45.5 42.7 (35.5-45.6) % Plt Count 247 214 (140-440) K/mm3 Lymph # 2.6 2.7 (1.2-5.4) K/mm3 [place] # 0.7 1.2 H (0.0-0.8) K/mm3 Eos # 0.2 0.3 (0.0-0.4) K/mm3 Baso # 0.1 0.0 (0.0-0.1) K/mm3 Comprehensive Metabolic Panel 08/24/18 08/24/18 08/26/18 Range/Units 08:20 08:20 04:43 Sodium 141 141 (137-145) mmol/L Potassium 3.7 4.2 (3.6-5.0) mmol/L Chloride 107.8 H 106.1 (98-107) mmol/L Carbon Dioxide 20 L 24 (22-30) mmol/L BUN 14 13 (9-20) mg/dL Creatinine 0.9 1.0 (0.8-1.5) mg/dL Glucose 132 H 102 H (75-100) mg/dL Calcium 8.2 L 8.3 L (8.4-10.2) mg/dL Direct Bilirubin < 0.2 (0-0.2) mg/dL AST 37 65 H (5-40) units/L ALT 22 27 (7-56) units/L Alkaline Phosphatase 68 67 (35-129) units/L Total Protein 6.5 5.9 L (6.3-8.2) g/dL Albumin 3.8 L 3.5 L (3.9-5) g/dL - Imaging and Cardiology Echo: report reviewed (03/2018 normal lv function in office), other (08/24/2018 normal lv function, mild posterior wall hypokinesis, mild mr ) Cardiac cath: report reviewed (08/24/2018 Left heart cath via the right radial approach revealed left main. LAD proximal 50% diagonal oxygen 20% circumflex. Obtuse marginal. RCA large dominant proximal 100% at PCI of the proximal RCA with a drug-eluting resolute 3.5 x 18 mm) - Telemetry EKG Rhythm: Sinus Rhythm
[2018-08-26] MEDS: PLAVIX PO SCH (10:54)
[2018-08-26] MEDS: IMDUR PO SCH (10:54)
[2018-08-26] MEDS: LOPRESSOR PO SCH (10:54)
[2018-08-26] MEDS: BABY ASPIRIN PO SCH (10:55)
[2018-08-26] MEDS: SODIUM CHLORIDE FLUSH SYRINGE 10 ML IV SCH (10:57)
--- NOTE | 2018-08-26 11:56 | Progress Note ---
Assessment and Plan Assessment and plan: --ST elevation [place]; Cardiac catheterization Status post PCI Continue dual platelet therapy, beta blockers, tete inhibitors and nitrates Statins, --Rhabdomyolysis; CK 1240, gentle hydration, if no improvement hold statin --Hypertension; continue current antihypertensives and when necessary medications --Dyslipidemia; on high intensity statin, low cholesterol diet --DVT prophylaxis SCDs Monitor the patient closely and adjust management as needed May be discharged today History Interval history: Patiet seen and examined,medical records reviewed. Patient feels betterno new complaints vital signs stable Hospitalist Physical - Constitutional Vitals: Temp Pulse Resp BP Pulse Ox 98.4 F 72 18 134/79 93 08/26/18 08:46 08/26/18 08:46 08/26/18 08:46 08/26/18 08:46 08/26/18 08:46 General appearance: Present: no acute distress, well-nourished - EENT Eyes: Present: PERRL, EOM intact - Neck Neck: Present: supple, normal ROM - Respiratory Respiratory effort: normal Respiratory: bilateral: diminished, negative: rales, rhonchi, wheezing - Cardiovascular Rhythm: regular Heart Sounds: Present: S1 & S2 - Extremities Extremities: no ischemia, pulses intact - Abdominal General gastrointestinal: soft, non-tender, non-distended, normal bowel sounds - Integumentary Integumentary: Present: clear, warm - Psychiatric Psychiatric: appropriate mood/affect, cooperative - Neurologic Neurologic: CNII-XII intact, moves all extremities Results - Labs CBC & Chem 7: 08/26/18 04:43 08/26/18 04:43 Labs: Laboratory Last Values WBC 9.9 K/mm3 (4.5-11.0) 08/26/18 04:43 RBC 4.59 M/mm3 (3.65-5.03) 08/26/18 04:43 Hgb 14.9 gm/dl (11.8-15.2) 08/26/18 04:43 Hct 42.7 % (35.5-45.6) 08/26/18 04:43 MCV 93 fl (84-94) 08/26/18 04:43 MCH 33 pg (28-32) H 08/26/18 04:43 MCHC 35 % (32-34) H 08/26/18 04:43 RDW 13.0 % (13.2-15.2) L 08/26/18 04:43 Plt Count 214 K/mm3 (140-440) 08/26/18 04:43 Lymph % (Auto) 27.5 % (13.4-35.0) 08/26/18 04:43 [place] % (Auto) 11.7 % (0.0-7.3) H 08/26/18 04:43 Eos % (Auto) 3.1 % (0.0-4.3) 08/26/18 04:43 Baso % (Auto) 0.4 % (0.0-1.8) 08/26/18 04:43 Lymph # 2.7 K/mm3 (1.2-5.4) 08/26/18 04:43 [place] # 1.2 K/mm3 (0.0-0.8) H 08/26/18 04:43 Eos # 0.3 K/mm3 (0.0-0.4) 08/26/18 04:43 Baso # 0.0 K/mm3 (0.0-0.1) 08/26/18 04:43 Seg Neutrophils % 57.3 % (40.0-70.0) 08/26/18 04:43 Seg Neutrophils # 5.7 K/mm3 (1.8-7.7) 08/26/18 04:43 PT 13.2 Sec. (12.2-14.9) 08/24/18 08:20 INR 0.95 (0.87-1.13) 08/24/18 08:20 APTT 20.3 Sec. (24.2-36.6) L 08/24/18 08:20 Activated Clotting Time 351 (74-137) H 08/24/18 09:04 Sodium 141 mmol/L (137-145) 08/26/18 04:43 Potassium 4.2 mmol/L (3.6-5.0) 08/26/18 04:43 Chloride 106.1 mmol/L (98-107) 08/26/18 04:43 Carbon Dioxide 24 mmol/L (22-30) 08/26/18 04:43 Anion Gap 15 mmol/L 08/26/18 04:43 BUN 13 mg/dL (9-20) 08/26/18 04:43 Creatinine 1.0 mg/dL (0.8-1.5) 08/26/18 04:43 Estimated GFR > 60 ml/min 08/26/18 04:43 BUN/Creatinine Ratio 13 % 08/26/18 04:43 Glucose 102 mg/dL (75-100) H 08/26/18 04:43 POC Glucose 135 (70-105) H 08/24/18 18:43 Calcium 8.3 mg/dL (8.4-10.2) L 08/26/18 04:43 Magnesium 2.00 mg/dL (1.7-2.3) 08/24/18 08:20 Total Bilirubin 0.80 mg/dL (0.1-1.2) 08/26/18 04:43 Direct Bilirubin < 0.2 mg/dL (0-0.2) 08/24/18 08:20 AST 65 units/L (5-40) H 08/26/18 04:43 ALT 27 units/L (7-56) 08/26/18 04:43 Alkaline Phosphatase 67 units/L (35-129) 08/26/18 04:43 Total Creatine Kinase 1240 units/L (55-170) H 08/25/18 04:30 CK-MB (CK-2) 138.8 ng/mL (0.0-4.0) H 08/25/18 04:30 CK-MB (CK-2) Rel Index 11.1 (0-4) H 08/25/18 04:30 Troponin T 2.100 ng/mL (0.00-0.029) H* D 08/26/18 04:43 NT-Pro-B Natriuret Pep 196.1 pg/mL (0-900) 08/24/18 08:20 Total Protein 5.9 g/dL (6.3-8.2) L 08/26/18 04:43 Albumin 3.5 g/dL (3.9-5) L 08/26/18 04:43 Albumin/Globulin Ratio 1.5 % 08/26/18 04:43 Triglycerides 236 mg/dL (2-149) H 08/24/18 08:20 Cholesterol 183 mg/dL (50-199) 08/24/18 08:20 LDL Cholesterol Direct 131 mg/dL (50-130) H 08/24/18 08:20 HDL Cholesterol 41 mg/dL (40-59) 08/24/18 08:20 Cholesterol/HDL Ratio 4.46 % 08/24/18 08:20 Blood Type B POSITIVE 08/24/18 12:00 Antibody Screen Negative 08/24/18 12:00 Active Medications - Current Medications Current Medications: Generic Name Dose Route Start Last Admin Trade Name Freq PRN Reason Stop Dose Admin Acetaminophen 650 mg 08/24/18 09:36 Tylenol PO Q4H PRN Pain MILD(1-3)/Fever >100.5/GOODMAN Albuterol 2.5 mg 08/24/18 09:36 Proventil IH Q4HRT PRN Shortness Of Breath Aspirin 81 mg 08/24/18 10:00 08/26/18 10:55 Baby Aspirin PO 81 mg QDAY MICHELLE Administration Atorvastatin Calcium 80 mg 08/24/18 22:00 08/25/18 21:56 Lipitor PO 80 mg QHS MICHELLE Administration Clopidogrel Bisulfate 75 mg 08/25/18 10:00 08/26/18 10:54 Plavix PO 75 mg QDAY MICHELLE Administration Isosorbide Mononitrate 30 mg 08/25/18 10:00 08/26/18 10:54 Imdur PO 30 mg QDAY MICHELLE Administration Metoprolol Tartrate 25 mg 08/25/18 10:00 08/26/18 10:54 Lopressor PO 25 mg BID MICHELLE Administration Ondansetron HCl 4 mg 08/24/18 09:25 Zofran IV Q8H PRN N/V unrelieved by Reglan Sodium Chloride 10 ml 08/24/18 10:00 08/26/18 10:57 Sodium Chloride Flush Syringe 10 Ml IV 10 ml BID MICHELLE Administration Sodium Chloride 10 ml 08/24/18 09:36 Sodium Chloride Flush Syringe 10 Ml IV PRN PRN LINE FLUSH Tramadol HCl 50 mg 08/24/18 09:25 Ultram PO Q4H PRN Pain, Mild (1-3)
[2018-08-26 12:12] VITALS: BP 113/63
--- NOTE | 2018-08-26 13:40 | Discharge Summary ---
Providers - Providers Date of Admission: 08/24/18 09:25 Date of discharge: 08/26/18 Attending physician: ELVIS GABRIEL 08/24/18 Consult to Cardiac Rehabilitation [CONS] Routine Reason For Exam: post pci 08/24/18 09:28 Consult to Physician [CONS] Routine Comment: Consulting Provider: WALLY KAM Physician Instructions: Reason For Exam: post mi Primary care physician: [facility], Hospitalization Reason for admission: stemi Condition: Serious Pertinent studies: [facility] with PCI and echo - see reports Procedures: [facility] iw PCI and echo - see reports Hospital course: 78-year-old [place] male who presented via EMS with chest pain on and off for last 2 to 3 days midsternal nonradiating no nausea no vomiting no syncope. EKG in the field showed mild elevation inferiorly but resolved after nitroglycerin EKG in the ED were having chest pain chest diagnostic EKG for acute ST elevation inferiorly patient was brought to the [facility]. Left heart cath via the right radial approach revealed left main. LAD proximal 50% diagonal oxygen 20% circumflex. Obtuse marginal. RCA large dominant proximal 100% at PCI of the proximal RCA with a drug-eluting resolute 3.5 x 18 mm. Echo showed EF 55-60%, impaired relaxation, mild AR, mild MR, mild TR, mild FL. Pt is medically stable for discharge home today. Disposition: [id number] TO HOME OR SELFCARE - Discharge Diagnoses (1) STEMI (ST elevation myocardial infarction) Status: Acute (2) CAD (coronary artery disease) Status: Chronic (3) Stented coronary artery Status: Chronic (4) HLD (hyperlipidemia) Status: Chronic Qualifiers: Hyperlipidemia type: mixed hyperlipidemia Qualified Code(s): E78.2 - Mixed hyperlipidemia (5) HTN (hypertension) Status: Chronic Qualifiers: Hypertension type: essential hypertension Qualified Code(s): I10 - Essential (primary) hypertension Core Measure Documentation - Palliative Care Palliative Care/ Comfort Measures: Not Applicable - Core Measures Any of the following diagnoses?: acute [place] - Acute [place] Discharge Requirements Aspirin at discharge: Yes FABIO/ARB for LVSD if EF <40%: Not Applicable Beta luis alberto at discharge: Yes Statin for LDL = or >100 mg/dl on DC: Yes Exam - Constitutional Vitals: Temp Pulse Resp BP Pulse Ox 98.1 F 68 16 113/63 93 08/26/18 12:11 08/26/18 12:11 08/26/18 12:11 08/26/18 12:11 08/26/18 12:11 General appearance: Present: no acute distress - EENT Eyes: Present: PERRL, EOM intact ENT: hearing intact, clear oral mucosa, dentition normal - Neck Neck: Present: supple, normal ROM - Respiratory Respiratory effort: normal Respiratory: bilateral: CTA - Cardiovascular Rhythm: regular Heart Sounds: Present: S1 & S2 - Extremities Extremities: no ischemia, pulses intact, pulses symmetrical Peripheral Pulses: within normal limits - Abdominal General gastrointestinal: Present: soft, non-tender - Integumentary Integumentary: Present: clear, warm, dry - Musculoskeletal Musculoskeletal: strength equal bilaterally - Psychiatric Psychiatric: appropriate mood/affect - Neurologic Neurologic: CNII-XII intact Plan Activity: advance as tolerated Diet: low fat, low cholesterol, low salt Wound: open to air, keep clean and dry, per your surgeon's advice Follow up with: BRIANNA ABARCA MD [Staff Physician] - 7 Days ([place] office, 09/06/2018 @ 10:15) [facility] [Primary Care Provider] - 3-5 Days Prescriptions: AtorvaSTATin [Lipitor] 80 mg PO QHS #30 tablet ISOSORBIDE MONOnitrate [Imdur ER] 30 mg PO QDAY #30 tablet Metoprolol [Lopressor TAB] 25 mg PO BID #60 tablet Clopidogrel [Plavix] 75 mg PO QDAY #30 tablet
== END 2018-08-26 15:16 | disposition home or self-care (01) | DRG 246 ==
LOC: ED 07:20 → CC1 09:25 → 4A 08-25 15:15
PROVIDERS: ADMIT Internal Medicine; ATTEND Internal Medicine
PROC: 027034Z Dilation of Coronary Artery, One Artery with Drug-eluting Intraluminal Device, Percutaneous Approach (ICD-10-PCS; principal; 2018-08-24)
PROC: B240ZZ3 Ultrasonography of Single Coronary Artery, Intravascular (ICD-10-PCS; 2018-08-24)
PROC: 4A023N7 Measurement of Cardiac Sampling and Pressure, Left Heart, Percutaneous Approach (ICD-10-PCS; 2018-08-24)
PROC: B2111ZZ Fluoroscopy of Multiple Coronary Arteries using Low Osmolar Contrast (ICD-10-PCS; 2018-08-24)
PROC: B2151ZZ Fluoroscopy of Left Heart using Low Osmolar Contrast (ICD-10-PCS; 2018-08-24)
DX: I21.19 ST elevation (STEMI) myocardial infarction involving other coronary artery of inferior wall (principal); I50.31 Acute diastolic (congestive) heart failure; M62.82 Rhabdomyolysis; E78.00 Pure hypercholesterolemia, unspecified; I25.82 Chronic total occlusion of coronary artery; I11.0 Hypertensive heart disease with heart failure; E78.5 Hyperlipidemia, unspecified; I25.10 Atherosclerotic heart disease of native coronary artery without angina pectoris; E78.2 Mixed hyperlipidemia; Z87.891 Personal history of nicotine dependence
CPT/HCPCS: 36415; 71045; 80048; 80053; 80061; 80076; 82550; 82553; 82962; 83735; 83880; 84484; 85025; 85347; 85610; 85730; 86850; 86900; 86901; 92941; 92978; 93005; 93010; 93306; 93458; G0378; A9270-GY; C1753; C1769; C1874; C1887; C1894; C9606; J1644; J2250; J2270; J2405; J3010; J7040; Q9967

== ENCOUNTER 2020-01-02 21:03 | Observation (INO) | payer MEDICARE ==
--- NOTE | 2020-01-02 22:34 | XRay Report ---
CHEST 1 VIEW 01/02/2020 9:27 PM INDICATION / CLINICAL INFORMATION: SOB. COMPARISON: Chest x-ray 08/25/2018 FINDINGS: SUPPORT DEVICES: None. HEART / MEDIASTINUM: Borderline enlarged, unchanged LUNGS / PLEURA: No significant pulmonary or pleural abnormality. No pneumothorax. ADDITIONAL FINDINGS: No significant additional findings. IMPRESSION: 1. No acute findings. Signer Name: Alex Byrne MD Signed: 01/02/2020 10:30 PM Workstation Name: [id number]
[2020-01-02 22:49] LABS: Basophils % (Auto) 0.3 % (0.0-1.8); Eosinophils # (Auto) 0.4 K/mm3 (0.0-0.4); Eosinophils % (Auto) 3.4 % (0.0-4.3); Hematocrit 41.6 % (35.5-45.6); Hemoglobin 14.4 gm/dl (11.8-15.2); Lymphocytes # (Auto) 3.4 K/mm3 (1.2-5.4); Lymphocytes % (Auto) 31.5 % (13.4-35.0); Mean Corpuscular HGB Conc 35 % (32-34); Mean Corpuscular Volume 93 fl (84-94); Monocytes # (Auto) 1.1 K/mm3 (0.0-0.8); Monocytes % (Auto) 10.4 % (0.0-7.3); Platelet Count 256 K/mm3 (140-440); Red Blood Count 4.47 M/mm3 (3.65-5.03); Red Cell Distribution Width 12.6 % (13.2-15.2)
[2020-01-02 22:54] LABS: Alanine Aminotransferase 20 units/L (7-56); Albumin 3.9 g/dL (3.9-5); BUN/Creatinine Ratio 18; Blood Urea Nitrogen 20 mg/dL (9-20); Calcium 8.9 mg/dL (8.4-10.2); Hemolysis Index 3; INR 0.99 (0.87-1.13); Partial Thromboplastin Time 26.8 Sec. (24.2-36.6)
--- NOTE | 2020-01-02 23:16 | Emergency Department Report ---
ED Shortness of Breath HPI - General Chief Complaint: Dyspnea/Respdistress Stated Complaint: CLAUDIO Time Seen by Provider: 01/02/20 21:29 Source: EMS Mode of arrival: Stretcher Limitations: Language Barrier - History of Present Illness Initial Comments: 79-year-old male with a past medical history of ST elevation GA when he presented here in August 2018 with findings of CAD and 100% RCA lesion requiring drug-eluting stent, EF of 50 to 60% with impaired relaxation, hypertension, hyperlipidemia, and suspected COPD presents to the hospital complaining of s hortness of breath. Patient speaks [place] and at this time language line is not available in the ER. Patient has mild tachypnea but does not acutely be in any acute distress During that admission patient received pulmonology consultation and he was suspected of having COPD with recommended outpatient work-up at that time - Related Data Previous Rx's Medication Instructions Recorded Last Taken Type Aspirin [Aspirin BABY CHEW TAB] 81 mg PO QDAY tab.chew 08/26/18 Unknown Rx AtorvaSTATin [Lipitor] 80 mg PO QHS #30 tablet 08/26/18 Unknown Rx Clopidogrel [Plavix] 75 mg PO QDAY #30 tablet 08/26/18 Unknown Rx ISOSORBIDE MONOnitrate [Imdur ER] 30 mg PO QDAY #30 tablet 08/26/18 Unknown Rx Metoprolol [Lopressor TAB] 25 mg PO BID #60 tablet 08/26/18 Unknown Rx Metoprolol [Lopressor TAB] 25 mg PO BID #60 tablet 08/26/18 Unknown Rx Allergies Allergy/AdvReac Type Severity Reaction Status Date / Time No Known Allergies Allergy Unverified 09/23/17 20:31 ED Review of Systems ROS: Stated complaint: CLAUDIO Other details as noted in HPI Comment: Unobtainable due to pts medical conditions ED Past Medical Hx - Past Medical History Hx Hypertension: Yes Hx CVA: No Hx Heart Attack/AMI: No Hx Congestive Heart Failure: No Hx Diabetes: No Hx Deep Vein Thrombosis: No Hx Pulmonary Embolism: No Hx GERD: No Hx Liver Disease: No Hx Renal Disease: No Hx Sickle Cell Disease: No Hx Arthritis: No Hx Headaches / Migraines: No Hx Seizures: No Hx Kidney Stones: No Hx Psychiatric Treatment: No Hx Asthma: No Hx COPD: No Hx Tuberculosis: No Hx Dementia: No Hx HIV: No Additional medical history: Pyogenic hepatic abscess. Dyslipidemia - Surgical History Hx Coronary Stent: No Hx Open Heart Surgery: No Hx Pacemaker: No Hx Internal Defibrillator: No Hx Cholecystectomy: No Hx Appendectomy: No Hx Breast Surgery: No - Social History Smoking Status: Former Smoker - Medications Home Medications: Home Medications Medication Instructions Recorded Confirmed Last Taken Type Aspirin [Aspirin BABY CHEW TAB] 81 mg PO QDAY tab.chew 08/26/18 Unknown Rx AtorvaSTATin [Lipitor] 80 mg PO QHS #30 tablet 08/26/18 Unknown Rx Clopidogrel [Plavix] 75 mg PO QDAY #30 tablet 08/26/18 Unknown Rx ISOSORBIDE MONOnitrate [Imdur ER] 30 mg PO QDAY #30 tablet 08/26/18 Unknown Rx Metoprolol [Lopressor TAB] 25 mg PO BID #60 tablet 08/26/18 Unknown Rx Metoprolol [Lopressor TAB] 25 mg PO BID #60 tablet 08/26/18 Unknown Rx ED Physical Exam - General Limitations: Language Barrier - Other Other exam information: General: No acute distress Head: Atraumatic Eyes: normal appearance ENT: Moist mucous membranes Neck: Normal appearance, no midline tenderness Chest: Clear to auscultation bilaterally, no distress or accessory muscle use CV: Regular rate and rhythm Abdomen: Soft, normal bowel sounds, nontender, nondistended, no rebound or guarding Back: Normal inspection Extremity: Normal inspection, full range of motion, no calf tenderness or leg edema Neuro: Alert O x 3, no facial asymmetry, speech clear, no gross motor sensory deficit Psych: Appropriate behavior Skin: No rash, ED Course Vital Signs 01/02/20 01/02/20 01/02/20 21:15 21:30 22:00 Temperature 97.7 F Pulse Rate 78 80 73 Respiratory 25 H 23 21 Rate Blood Pressure 125/64 Blood Pressure 125/64 [right arm] O2 Sat by Pulse 92 92 95 Oximetry 01/02/20 23:00 Temperature Pulse Rate 73 Respiratory 19 Rate Blood Pressure 112/59 Blood Pressure [right arm] O2 Sat by Pulse 96 Oximetry ED Medical Decision Making - Lab Data Result diagrams: 01/02/20 21:54 01/02/20 21:54 Lab Results 01/02/20 01/02/20 01/02/20 Range/Units 21:54 21:54 21:54 WBC 10.6 (4.5-11.0) K/mm3 RBC 4.47 (3.65-5.03) M/mm3 Hgb 14.4 (11.8-15.2) gm/dl Hct 41.6 (35.5-45.6) % MCV 93 (84-94) fl MCH 32 (28-32) pg MCHC 35 H (32-34) % RDW 12.6 L (13.2-15.2) % Plt Count 256 (140-440) K/mm3 Lymph % (Auto) 31.5 (13.4-35.0) % [place] % (Auto) 10.4 H (0.0-7.3) % Eos % (Auto) 3.4 (0.0-4.3) % Baso % (Auto) 0.3 (0.0-1.8) % Lymph # 3.4 (1.2-5.4) K/mm3 [place] # 1.1 H (0.0-0.8) K/mm3 Eos # 0.4 (0.0-0.4) K/mm3 Baso # 0.0 (0.0-0.1) K/mm3 Seg Neutrophils % 54.4 (40.0-70.0) % Seg Neutrophils # 5.8 (1.8-7.7) K/mm3 PT 13.3 (12.2-14.9) Sec. INR 0.99 (0.87-1.13) APTT 26.8 (24.2-36.6) Sec. D-Dimer (0-234) ng/mlDDU ABG pH (7.350-7.450) pH Units ABG pCO2 mm Hg ABG pO2 (80.0-90.0) mm Hg ABG HCO3 (20.0-26.0) mmol/L ABG O2 Saturation (95.0-99.0) % ABG O2 Content (0.0-44) ABG Base Excess (-2.0-3.0) mmol/L ABG Hemoglobin (14.0-18.0) gm/dl ABG Carboxyhemoglobin (0.0-5.0) % ABG Methemoglobin (0.0-1.5) % Oxyhemoglobin (95.0-99.0) % FiO2 % Sodium 141 (137-145) mmol/L Potassium 3.8 (3.6-5.0) mmol/L Chloride 107.4 H (98-107) mmol/L Carbon Dioxide 19 L (22-30) mmol/L Anion Gap 18 mmol/L BUN 20 (9-20) mg/dL Creatinine 1.1 (0.8-1.3) mg/dL Estimated GFR > 60 ml/min BUN/Creatinine Ratio 18 % Glucose 150 H (75-100) mg/dL Calcium 8.9 (8.4-10.2) mg/dL Total Bilirubin 0.40 (0.1-1.2) mg/dL AST 19 (5-40) units/L ALT 20 (7-56) units/L Alkaline Phosphatase 73 (35-129) units/L Troponin T < 0.010 (0.00-0.029) ng/mL NT-Pro-B Natriuret Pep 115.9 (0-900) pg/mL Total Protein 6.8 (6.3-8.2) g/dL Albumin 3.9 (3.9-5) g/dL Albumin/Globulin Ratio 1.3 % 01/02/20 01/02/20 Range/Units 22:20 23:29 WBC (4.5-11.0) K/mm3 RBC (3.65-5.03) M/mm3 Hgb (11.8-15.2) gm/dl Hct (35.5-45.6) % MCV (84-94) fl MCH (28-32) pg MCHC (32-34) % RDW (13.2-15.2) % Plt Count (140-440) K/mm3 Lymph % (Auto) (13.4-35.0) % [place] % (Auto) (0.0-7.3) % Eos % (Auto) (0.0-4.3) % Baso % (Auto) (0.0-1.8) % Lymph # (1.2-5.4) K/mm3 [place] # (0.0-0.8) K/mm3 Eos # (0.0-0.4) K/mm3 Baso # (0.0-0.1) K/mm3 Seg Neutrophils % (40.0-70.0) % Seg Neutrophils # (1.8-7.7) K/mm3 PT (12.2-14.9) Sec. INR (0.87-1.13) APTT (24.2-36.6) Sec. D-Dimer 202.7 (0-234) ng/mlDDU ABG pH 7.373 (7.350-7.450) pH Units ABG pCO2 35.8 mm Hg ABG pO2 59.5 L (80.0-90.0) mm Hg ABG HCO3 20.4 (20.0-26.0) mmol/L ABG O2 Saturation 91.0 L (95.0-99.0) % ABG O2 Content 17.9 (0.0-44) ABG Base Excess -4.2 L (-2.0-3.0) mmol/L ABG Hemoglobin 14.3 (14.0-18.0) gm/dl ABG Carboxyhemoglobin 1.5 (0.0-5.0) % ABG Methemoglobin 0.6 (0.0-1.5) % Oxyhemoglobin 89.1 L (95.0-99.0) % FiO2 21 % Sodium (137-145) mmol/L Potassium (3.6-5.0) mmol/L Chloride (98-107) mmol/L Carbon Dioxide (22-30) mmol/L Anion Gap mmol/L BUN (9-20) mg/dL Creatinine (0.8-1.3) mg/dL Estimated GFR ml/min BUN/Creatinine Ratio % Glucose (75-100) mg/dL Calcium (8.4-10.2) mg/dL Total Bilirubin (0.1-1.2) mg/dL AST (5-40) units/L ALT (7-56) units/L Alkaline Phosphatase (35-129) units/L Troponin T (0.00-0.029) ng/mL NT-Pro-B Natriuret Pep (0-900) pg/mL Total Protein (6.3-8.2) g/dL Albumin (3.9-5) g/dL Albumin/Globulin Ratio % - EKG Data -: EKG Interpreted by [place] EKG shows normal: sinus rhythm, ST-T waves (No STEMI) Rate: normal (72) - Radiology Data Radiology results: report reviewed CHEST 1 VIEW 01/02/2020 9:27 PM INDICATION / CLINICAL INFORMATION: SOB. COMPARISON: Chest x-ray 08/25/2018 FINDINGS: SUPPORT DEVICES: None. HEART / MEDIASTINUM: Borderline enlarged, unchanged LUNGS / PLEURA: No significant pulmo nary or pleural abnormality. No pneumothorax. ADDITIONAL FINDINGS: No significant additional findings. IMPRESSION: 1. No acute findings. - Medical Decision Making Unfortunately unable to communicate with patient due to issues with the language line communication. ED work-up for shortness of breath does not reveal any acute abnormality. Normal d-dimer, negative chest x-ray, negative troponin, normal EKG, and normal BNP without signs of leg edema or calf tenderness. DuoNeb ordered given history of possible COPD/smoker and patient is treated with supplemental nasal cannula oxygen with improvement in initial tachypnea. Hospitalist informed for admission Critical Care Time: No Critical care attestation.: If time is entered above; I have spent that time in minutes in the direct care of this critically ill patient, excluding procedure time. ED Disposition Clinical Impression: Dyspnea, Hypoxia, Former smoker, H/O heart artery stent Disposition: OP ADMIT IP TO THIS HOSP Is pt being admited?: Yes Condition: Stable Time of Disposition: 00:01 (Dr Aguilar/hosp)
[2020-01-02 23:42] LABS: ABG Base Excess -4.2 mmol/L (-2.0-3.0); ABG HCO3 20.4 mmol/L (20.0-26.0); ABG Methemoglobin 0.6 % (0.0-1.5); ABG PCO2 35.8 mm Hg; ABG PH 7.373 pH Units (7.350-7.450); ABG PO2 59.5 mm Hg (80.0-90.0)
[2020-01-03] MEDS ORDERED: IPRATROPIUM/ALBUTEROL SULFATE 3 ML AMPUL.NEB IH ONE ×2 (00:31)
[2020-01-03] MEDS ORDERED: ONDANSETRON 4 MG/2 ML INJ IV PRN ×2 (01:19→19:32)
[2020-01-03] MEDS ORDERED: ACETAMINOPHEN 325 MG TAB PO PRN (01:20)
[2020-01-03] MEDS ORDERED: ALBUTEROL 2.5 MG/3 ML NEBU IH PRN (01:23)
--- NOTE | 2020-01-03 03:17 | History and Physical Report ---
History of Present Illness Date of examination: 01/03/20 Date of admission: 01/03/20 00:02 Chief complaint: shortness of breath History of present illness: 79 year old male presenting with shortness of breath and weakness. Patient does not speak mongolian and telephone line for translation is unavailable making history taking difficult. There is no indication of chest pain ,fever, chills ,nausea or vomting. Past History Past Medical History: CAD Past Surgical History: Other (Stents) Social history: no significant social history Family history: no significant family history Medications and Allergies Allergies Allergy/AdvReac Type Severity Reaction Status Date / Time No Known Allergies Allergy Unverified 09/23/17 20:31 Home Medications Medication Instructions Recorded Confirmed Last Taken Type Aspirin [Aspirin BABY CHEW TAB] 81 mg PO QDAY tab.chew 08/26/18 Unknown Rx AtorvaSTATin [Lipitor] 80 mg PO QHS #30 tablet 08/26/18 Unknown Rx Clopidogrel [Plavix] 75 mg PO QDAY #30 tablet 08/26/18 Unknown Rx ISOSORBIDE MONOnitrate [Imdur ER] 30 mg PO QDAY #30 tablet 08/26/18 Unknown Rx Metoprolol [Lopressor TAB] 25 mg PO BID #60 tablet 08/26/18 Unknown Rx Metoprolol [Lopressor TAB] 25 mg PO BID #60 tablet 08/26/18 Unknown Rx Active Meds: Active Medications Acetaminophen (Tylenol) 650 mg PO Q4H PRN PRN Reason: Fever >101 Albuterol (Proventil) 2.5 mg IH Q4HRT PRN PRN Reason: Shortness Of Breath Aspirin (Baby Aspirin) 81 mg PO QDAY MICHELLE Atorvastatin Calcium (Lipitor) 80 mg PO QHS MICHELLE Clopidogrel Bisulfate (Plavix) 75 mg PO QDAY MICHELLE Heparin Sodium (Porcine) (Heparin) 5,000 unit SUB-Q Q12HR MICHELLE Isosorbide Mononitrate (Imdur) 30 mg PO QDAY MICHELLE Metoprolol Tartrate (Metoprolol) 25 mg PO BID MICHELLE Ondansetron HCl (Zofran) 4 mg IV Q8H PRN PRN Reason: Nausea And Vomiting Review of Systems Constitutional: weakness, no weight loss, no weight gain, no fever, no chills, no sweats Eyes: bilateral: other (No Bilateral Eye Symptoms) Ears, nose, mouth and throat: no ear pain, no ear discharge, no decreased hearing, no nose pain, no nasal congestion, no nasal discharge, no sinus pressure Cardiovascular: shortness of breath, no chest pain, no palpitations, no rapid/irregular heart beat, no syncope, no lightheadedness Respiratory: shortness of breath, no cough, no excessive sputum Gastrointestinal: no abdominal pain, no nausea, no vomiting, no diarrhea, no constipation, no jaundice Genitourinary Male: no dysuria, no hematuria, no flank pain, no nocturia, no incontinence Rectal: no pain, no itching Musculoskeletal: no neck stiffness, no neck pain, no shooting arm pain, no arm numbness/tingling, no low back pain, no shooting leg pain, no leg numbness/tingl ing, no morning stiffness, no muscle weakness, no muscle cramps, no myalgias Integumentary: no rash, no pruritis, no redness, no sores, no wounds, no jaundice, no boils, no bullae, no lesions, no darkening of skin, no depigmentation, no acne, no dryness Neurological: weakness, no parathesias, no numbness, no tingling, no seizures, no syncope, no tremors, no ataxia, no lack of coordination, no vertigo, no headaches, no convulsions, no aphasia Psychiatric: no anxiety, no memory loss, no sleep disturbances, no insomnia, no hypersomnia, no change in appetite, no change in libido, no hopelessness Endocrine: no cold intolerance, no heat intolerance, no polyphagia, no excessive thirst, no polydipsia, no polyuria, no nocturia, no excessive sweating, no proptosis, no thyroid mass, no palpatations, no high blood sugars Hematologic/Lymphatic: no easy bruising, no easy bleeding Allergic/Immunologic: no urticaria, no allergic rhinitis Exam - Constitutional Vitals: Temp Pulse Resp BP Pulse Ox 97.7 F 83 16 126/71 96 01/02/20 21:15 01/03/20 01:00 01/03/20 01:00 01/03/20 01:00 01/03/20 01:00 General appearance: Present: no acute distress - EENT Eyes: Present: PERRL, EOM intact ENT: hearing intact - Neck Neck: Present: supple, normal ROM - Respiratory Respiratory effort: normal - Cardiovascular Rhythm: regular Heart Sounds: Present: S1 & S2. Absent: gallop, systolic murmur, diastolic murmur, click - Extremities Extremities: no ischemia, No edema Peripheral Pulses: within normal limits - Abdominal General gastrointestinal: Present: soft, non-tender, non-distended. Absent: tender, distended, rigid, hepatomegaly, splenomegaly Male genitourinary: Present: deferred - Rectal Rectal Exam: deferred - Integumentary Integumentary: Present: clear, warm, dry - Musculoskeletal Musculoskeletal: strength equal bilaterally - Psychiatric Psychiatric: appropriate mood/affect HEART Score - HEART Score Age: > 65 Risk factors: 1-2 risk factors Troponin: Troponin T < 0.010 ng/mL (0.00-0.029) 01/03/20 00:40 - Critical Actions Critical Actions: 0-3 pts:0.9-1.7%risk of adverse cardiac event.Candidate for discharge Results - Labs CBC & Chem 7: 01/02/20 21:54 01/02/20 21:54 Labs: Laboratory Last Values WBC 10.6 K/mm3 (4.5-11.0) 01/02/20 21:54 RBC 4.47 M/mm3 (3.65-5.03) 01/02/20 21:54 Hgb 14.4 gm/dl (11.8-15.2) 01/02/20 21:54 Hct 41.6 % (35.5-45.6) 01/02/20 21:54 MCV 93 fl (84-94) 01/02/20 21:54 MCH 32 pg (28-32) 01/02/20 21:54 MCHC 35 % (32-34) H 01/02/20 21:54 RDW 12.6 % (13.2-15.2) L 01/02/20 21:54 Plt Count 256 K/mm3 (140-440) 01/02/20 21:54 Lymph % (Auto) 31.5 % (13.4-35.0) 01/02/20 21:54 [place] % (Auto) 10.4 % (0.0-7.3) H 01/02/20 21:54 Eos % (Auto) 3.4 % (0.0-4.3) 01/02/20 21:54 Baso % (Auto) 0.3 % (0.0-1.8) 01/02/20 21:54 Lymph # 3.4 K/mm3 (1.2-5.4) 01/02/20 21:54 [place] # 1.1 K/mm3 (0.0-0.8) H 01/02/20 21:54 Eos # 0.4 K/mm3 (0.0-0.4) 01/02/20 21:54 Baso # 0.0 K/mm3 (0.0-0.1) 01/02/20 21:54 Seg Neutrophils % 54.4 % (40.0-70.0) 01/02/20 21:54 Seg Neutrophils # 5.8 K/mm3 (1.8-7.7) 01/02/20 21:54 PT 13.3 Sec. (12.2-14.9) 01/02/20 21:54 INR 0.99 (0.87-1.13) 01/02/20 21:54 APTT 26.8 Sec. (24.2-36.6) 01/02/20 21:54 D-Dimer 202.7 ng/mlDDU (0-234) 01/02/20 22:20 ABG pH 7.373 pH Units (7.350-7.450) 01/02/20 23:29 ABG pCO2 35.8 mm Hg 01/02/20 23: ABG pO2 59.5 mm Hg (80.0-90.0) L 01/02/20 23:29 ABG HCO3 20.4 mmol/L (20.0-26.0) 01/02/20 23:29 ABG O2 Saturation 91.0 % (95.0-99.0) L 01/02/20 23:29 ABG O2 Content 17.9 (0.0-44) 01/02/20 23: ABG Base Excess -4.2 mmol/L (-2.0-3.0) L 01/02/20 23:29 ABG Hemoglobin 14.3 gm/dl (14.0-18.0) 01/02/20 23:29 ABG Carboxyhemoglobin 1.5 % (0.0-5.0) 01/02/20 23: ABG Methemoglobin 0.6 % (0.0-1.5) 01/02/20 23:29 Oxyhemoglobin 89.1 % (95.0-99.0) L 01/02/20 23:29 FiO2 21 % 01/02/20 23:29 Sodium 141 mmol/L (137-145) 01/02/20 21:54 Potassium 3.8 mmol/L (3.6-5.0) 01/02/20 21:54 Chloride 107.4 mmol/L (98-107) H 01/02/20 21:54 Carbon Dioxide 19 mmol/L (22-30) L 01/02/20 21:54 Anion Gap 18 mmol/L 01/02/20 21:54 BUN 20 mg/dL (9-20) 01/02/20 21:54 Creatinine 1.1 mg/dL (0.8-1.3) 01/02/20 21:54 Estimated GFR > 60 ml/min 01/02/20 21:54 BUN/Creatinine Ratio 18 % 01/02/20 21:54 Glucose 150 mg/dL (75-100) H 01/02/20 21:54 Calcium 8.9 mg/dL (8.4-10.2) 01/02/20 21:54 Total Bilirubin 0.40 mg/dL (0.1-1.2) 01/02/20 21:54 AST 19 units/L (5-40) 01/02/20 21:54 ALT 20 units/L (7-56) 01/02/20 21:54 Alkaline Phosphatase 73 units/L (35-129) 01/02/20 21:54 Troponin T < 0.010 ng/mL (0.00-0.029) 01/03/20 00:40 NT-Pro-B Natriuret Pep 115.9 pg/mL (0-900) 01/02/20 21:54 Total Protein 6.8 g/dL (6.3-8.2) 01/02/20 21:54 Albumin 3.9 g/dL (3.9-5) 01/02/20 21:54 Albumin/Globulin Ratio 1.3 % 01/02/20 21:54 Ji/IV: Voiding Method Toilet Assessment and Plan - Patient Problems (1) Dyspnea Current Visit: Yes Status: Acute Plan to address problem: 1. Albuterol Nebulizer PRN Shortness of breath 2. Serial cardiac Enzymes (2) Hypoxia Current Visit: Yes Status: Acute Plan to address problem: 1. OxYgen by Nasal cannula
[2020-01-03 07:51] LABS: Creatine Kinase MB 2.1 ng/mL (0.0-4.0)
[2020-01-03] MEDS: ASPIRIN 81 MG TAB CHEW PO SCH (09:30)
[2020-01-03] MEDS: METOPROLOL TARTRATE 25 MG TAB PO SCH ×2 (09:31→22:31)
[2020-01-03] MEDS: CLOPIDOGREL 75 MG TAB PO SCH (09:31)
[2020-01-03] MEDS: HEPARIN 5,000 UNIT/1 ML VIAL SUB-Q SCH ×2 (09:31→22:32)
--- NOTE | 2020-01-03 09:49 | Event Note ---
Date: 01/03/20 I have seen and examined the patient at the bedside Patient's chart and medications reviewed Patient feels slightly better complains of some vague abdominal pain Alert and awake responding appropriately Vital signs reviewed. Physical examination; abdomen vague tenderness no guarding no rigidity bowel sounds are present Assessment and plan; --COVID-19 test negative --Abdominal pain; Pain medications, CT abdomen and pelvis with contrast To rule out acute intra-abdominal causes of abdominal pain If no improvement will consult GI --Chronic diastolic congestive heart failure; Anti-failure medications, input output monitoring Low-sodium diet --Acute hypoxic respiratory failure; hypoxia per ABG Oxygen titrate O2 sats to more than 90%, nebulizers IV steroids supportive care --History of coronary artery disease status post PCI; Resume all the home cardiac medications, closely monitor adjust as needed --DVT prophylaxis; heparin Monitor closely and adjust management as needed Follow CT abdomen and pelvis report Possible discharge in 1 to 2 days if stable
[2020-01-03 17:02] LABS: Creatine Kinase MB 2.5 ng/mL (0.0-4.0)
--- NOTE | 2020-01-03 19:17 | Progress Note ---
Hospitalist Physical - Constitutional Vitals: Temp Pulse Resp BP Pulse Ox 97.4 F L 75 22 151/72 94 01/03/20 17:08 01/03/20 17:08 01/03/20 17:08 01/03/20 17:08 01/03/20 17:08 General appearance: Present: no acute distress HEART Score - HEART Score Age: > 65 Risk factors: 1-2 risk factors Troponin: Troponin T < 0.010 ng/mL (0.00-0.029) 01/03/20 15:50 - Critical Actions Critical Actions: 0-3 pts:0.9-1.7%risk of adverse cardiac event.Candidate for discharge Results - Labs CBC & Chem 7: 01/02/20 21:54 01/02/20 21:54 Labs: Laboratory Last Values WBC 10.6 K/mm3 (4.5-11.0) 01/02/20 21:54 RBC 4.47 M/mm3 (3.65-5.03) 01/02/20 21:54 Hgb 14.4 gm/dl (11.8-15.2) 01/02/20 21:54 Hct 41.6 % (35.5-45.6) 01/02/20 21:54 MCV 93 fl (84-94) 01/02/20 21:54 MCH 32 pg (28-32) 01/02/20 21:54 MCHC 35 % (32-34) H 01/02/20 21:54 RDW 12.6 % (13.2-15.2) L 01/02/20 21:54 Plt Count 256 K/mm3 (140-440) 01/02/20 21:54 Lymph % (Auto) 31.5 % (13.4-35.0) 01/02/20 21:54 [place] % (Auto) 10.4 % (0.0-7.3) H 01/02/20 21:54 Eos % (Auto) 3.4 % (0.0-4.3) 01/02/20 21:54 Baso % (Auto) 0.3 % (0.0-1.8) 01/02/20 21:54 Lymph # 3.4 K/mm3 (1.2-5.4) 01/02/20 21:54 [place] # 1.1 K/mm3 (0.0-0.8) H 01/02/20 21:54 Eos # 0.4 K/mm3 (0.0-0.4) 01/02/20 21:54 Baso # 0.0 K/mm3 (0.0-0.1) 01/02/20 21:54 Seg Neutrophils % 54.4 % (40.0-70.0) 01/02/20 21:54 Seg Neutrophils # 5.8 K/mm3 (1.8-7.7) 01/02/20 21:54 PT 13.3 Sec. (12.2-14.9) 01/02/20 21:54 INR 0.99 (0.87-1.13) 01/02/20 21:54 APTT 26.8 Sec. (24.2-36.6) 01/02/20 21:54 D-Dimer 202.7 ng/mlDDU (0-234) 01/02/20 22:20 ABG pH 7.373 pH Units (7.350-7.450) 01/02/20 23: ABG pCO2 35.8 mm Hg 01/02/20 23: ABG pO2 59.5 mm Hg (80.0-90.0) L 01/02/20 23: ABG HCO3 20.4 mmol/L (20.0-26.0) 01/02/20 23: ABG O2 Saturation 91.0 % (95.0-99.0) L 01/02/20 23: ABG O2 Content 17.9 (0.0-44) 01/02/20 23: ABG Base Excess -4.2 mmol/L (-2.0-3.0) L 01/02/20 23: ABG Hemoglobin 14.3 gm/dl (14.0-18.0) 01/02/20 23: ABG Carboxyhemoglobin 1.5 % (0.0-5.0) 01/02/20: ABG Methemoglobin 0.6 % (0.0-1.5) 01/02/20 23: Oxyhemoglobin 89.1 % (95.0-99.0) L 01/02/20 23: FiO2 21 % 01/02/20 23: Sodium 141 mmol/L (137-145) 01/02/20 21:54 Potassium 3.8 mmol/L (3.6-5.0) 01/02/20 21:54 Chloride 107.4 mmol/L (98-107) H 01/02/20 21:54 Carbon Dioxide 19 mmol/L (22-30) L 01/02/20 21:54 Anion Gap 18 mmol/L 01/02/20 21:54 BUN 20 mg/dL (9-20) 01/02/20 21:54 Creatinine 1.1 mg/dL (0.8-1.3) 01/02/20 21:54 Estimated GFR > 60 ml/min 01/02/20 21:54 BUN/Creatinine Ratio 18 % 01/02/20 21:54 Glucose 150 mg/dL (75-100) H 01/02/20 21:54 Calcium 8.9 mg/dL (8.4-10.2) 01/02/20 21:54 Total Bilirubin 0.40 mg/dL (0.1-1.2) 01/02/20 21:54 AST 19 units/L (5-40) 01/02/20 21:54 ALT 20 units/L (7-56) 01/02/20 21:54 Alkaline Phosphatase 73 units/L (35-129) 01/02/20 21:54 Total Creatine Kinase 74 units/L (55-170) 01/03/20 15:50 CK-MB (CK-2) 2.5 ng/mL (0.0-4.0) 01/03/20 15:50 CK-MB (CK-2) Rel Index 3.3 (0-4) 01/03/20 15:50 Troponin T < 0.010 ng/mL (0.00-0.029) 01/03/20 15:50 NT-Pro-B Natriuret Pep 115.9 pg/mL (0-900) 01/02/20 21:54 Total Protein 6.8 g/dL (6.3-8.2) 01/02/20 21:54 Albumin 3.9 g/dL (3.9-5) 01/02/20 21:54 Albumin/Globulin Ratio 1.3 % 01/02/20 21:54 Coronavirus (PCR) Negative (Negative) 01/03/20 Unknown Ji/IV: Voiding Method Toilet IV Catheter Type [Left INT / Saline Lock Antecubital] Active Medications - Current Medications Current Medications: Generic Name Dose Route Start Last Admin Trade Name Freq PRN Reason Stop Dose Admin Acetaminophen 650 mg 01/03/20 01:20 Tylenol PO Q4H PRN Fever >101 Albuterol 2.5 mg 01/03/20 01:23 Proventil IH Q4HRT PRN Shortness Of Breath Aspirin 81 mg 01/03/20 10:00 01/03/20 09:30 Baby Aspirin PO 81 mg QDAY MICHELLE Administration Atorvastatin Calcium 80 mg 01/03/20 22:00 Lipitor PO QHS MICHELLE Clopidogrel Bisulfate 75 mg 01/03/20 10:00 01/03/20 09:31 Plavix PO 75 mg QDAY [facility] Administration Heparin Sodium (Porcine) 5,000 unit 01/03/20 10:00 01/03/20 09:31 Heparin SUB-Q 5,000 unit Q12HR MICHELLE Administration Isosorbide Mononitrate 30 mg 01/03/20 10:00 01/03/20 09:30 Imdur PO 30 mg QDAY MICHELLE Administration Metoprolol Tartrate 25 mg 01/03/20 10:00 01/03/20 09:31 Metoprolol PO 25 mg BID MICHELLE Administration Ondansetron HCl 4 mg 01/03/20 01:19 Zofran IV Q8H PRN Nausea And Vomiting
--- NOTE | 2020-01-03 19:24 | Progress Note ---
Assessment and Plan Assessment and plan: --COVID-19 test negative --Abdominal pain; Pain medications, CT abdomen and pelvis with contrast To rule out acute intra-abdominal causes of abdominal pain If no improvement will consult GI We will change diet to clear liquids advance as tolerated --Chronic diastolic congestive heart failure; Anti-failure medications, input output monitoring Low-sodium diet --Acute hypoxic respiratory failure; hypoxia per ABG Oxygen titrate O2 sats to more than 90%, nebulizers IV steroids supportive care --Metabolic acidosis; bicarb 17. Vigorous IV hydration monitor renal function closely monitor bicarb --History of coronary artery disease status post PCI; Resume all the home cardiac medications, closely monitor adjust as needed --DVT prophylaxis; heparin Monitor closely and adjust management as needed Follow CT abdomen and pelvis report GI consult if needed Possible discharge in 1 to 2 days if stable Plan of care reviewed with the patient and his nurse Advance care, spent 35 minutes History Interval history: have seen and examined the patient at the bedside Patient's chart and medications reviewed Patient complains of some vague abdominal pain associated with nausea vomiting Alert and awake responding appropriately Vital signs reviewed. Mild distress Vital signs reviewed Hospitalist Physical - Constitutional Vitals: Temp Pulse Resp BP Pulse Ox 97.4 F L 75 22 151/72 94 01/03/20 17:08 01/03/20 17:08 01/03/20 17:08 01/03/20 17:08 01/03/20 17:08 General appearance: Present: mild distress, well-nourished - EENT Eyes: Present: PERRL, EOM intact - Neck Neck: Present: supple, normal ROM - Respiratory Respiratory effort: normal Respiratory: bilateral: diminished, negative: rales, rhonchi, wheezing - Cardiovascular Rhythm: regular Heart Sounds: Present: S1 & S2 - Extremities Extremities: no ischemia, No edema - Abdominal General gastrointestinal: soft, tender (No guarding no rigidity), non-distended, normal bowel sounds - Integumentary Integumentary: Present: clear, warm - Psychiatric Psychiatric: appropriate mood/affect, cooperative - Neurologic Neurologic: CNII-XII intact, moves all extremities HEART Score - HEART Score Age: > 65 Risk factors: 1-2 risk factors Troponin: Troponin T < 0.010 ng/mL (0.00-0.029) 01/03/20 15:50 - Critical Actions Critical Actions: 0-3 pts:0.9-1.7%risk of adverse cardiac event.Candidate for discharge Results - Labs CBC & Chem 7: 01/02/20 21:54 01/04/20 07:01 Labs: Laboratory Last Values WBC 10.6 K/mm3 (4.5-11.0) 01/02/20 21:54 RBC 4.47 M/mm3 (3.65-5.03) 01/02/20 21:54 Hgb 14.4 gm/dl (11.8-15.2) 01/02/20 21:54 Hct 41.6 % (35.5-45.6) 01/02/20 21:54 MCV 93 fl (84-94) 01/02/20 21:54 MCH 32 pg (28-32) 01/02/20 21:54 MCHC 35 % (32-34) H 01/02/20 21:54 RDW 12.6 % (13.2-15.2) L 01/02/20 21:54 Plt Count 256 K/mm3 (140-440) 01/02/20 21:54 Lymph % (Auto) 31.5 % (13.4-35.0) 01/02/20 21:54 [place] % (Auto) 10.4 % (0.0-7.3) H 01/02/20 21:54 Eos % (Auto) 3.4 % (0.0-4.3) 01/02/20 21:54 Baso % (Auto) 0.3 % (0.0-1.8) 01/02/20 21:54 Lymph # 3.4 K/mm3 (1.2-5.4) 01/02/20 21:54 [place] # 1.1 K/mm3 (0.0-0.8) H 01/02/20 21:54 Eos # 0.4 K/mm3 (0.0-0.4) 01/02/20 21:54 Baso # 0.0 K/mm3 (0.0-0.1) 01/02/20 21:54 Seg Neutrophils % 54.4 % (40.0-70.0) 01/02/20 21:54 Seg Neutrophils # 5.8 K/mm3 (1.8-7.7) 01/02/20 21:54 PT 13.3 Sec. (12.2-14.9) 01/02/20 21:54 INR 0.99 (0.87-1.13) 01/02/20 21:54 APTT 26.8 Sec. (24.2-36.6) 01/02/20 21:54 D-Dimer 202.7 ng/mlDDU (0-234) 01/02/20 22:20 ABG pH 7.373 pH Units (7.350-7.450) 01/02/20 23:29 ABG pCO2 35.8 mm Hg 01/02/20 23:29 ABG pO2 59.5 mm Hg (80.0-90.0) L 01/02/20 23: ABG HCO3 20.4 mmol/L (20.0-26.0) 01/02/20 23: ABG O2 Saturation 91.0 % (95.0-99.0) L 01/02/20 23:29 ABG O2 Content 17.9 (0.0-44) 01/02/20 23:29 ABG Base Excess -4.2 mmol/L (-2.0-3.0) L 01/02/20 23:29 ABG Hemoglobin 14.3 gm/dl (14.0-18.0) 01/02/20 23:29 ABG Carboxyhemoglobin 1.5 % (0.0-5.0) 01/02/20 23:29 ABG Methemoglobin 0.6 % (0.0-1.5) 01/02/20 23:29 Oxyhemoglobin 89.1 % (95.0-99.0) L 01/02/20 23:29 FiO2 21 % 01/02/20 23:29 Sodium 141 mmol/L (137-145) 01/02/20 21:54 Potassium 3.8 mmol/L (3.6-5.0) 01/02/20 21:54 Chloride 107.4 mmol/L (98-107) H 01/02/20 21:54 Carbon Dioxide 19 mmol/L (22-30) L 01/02/20 21:54 Anion Gap 18 mmol/L 01/02/20 21:54 BUN 20 mg/dL (9-20) 01/02/20 21:54 Creatinine 1.1 mg/dL (0.8-1.3) 01/02/20 21:54 Estimated GFR > 60 ml/min 01/02/20 21:54 BUN/Creatinine Ratio 18 % 01/02/20 21:54 Glucose 150 mg/dL (75-100) H 01/02/20 21:54 Calcium 8.9 mg/dL (8.4-10.2) 01/02/20 21:54 Total Bilirubin 0.40 mg/dL (0.1-1.2) 01/02/20 21:54 AST 19 units/L (5-40) 01/02/20 21:54 ALT 20 units/L (7-56) 01/02/20 21:54 Alkaline Phosphatase 73 units/L (35-129) 01/02/20 21:54 Total Creatine Kinase 74 units/L (55-170) 01/03/20 15:50 CK-MB (CK-2) 2.5 ng/mL (0.0-4.0) 01/03/20 15:50 CK-MB (CK-2) Rel Index 3.3 (0-4) 01/03/20 15:50 Troponin T < 0.010 ng/mL (0.00-0.029) 01/03/20 15:50 NT-Pro-B Natriuret Pep 115.9 pg/mL (0-900) 01/02/20 21:54 Total Protein 6.8 g/dL (6.3-8.2) 01/02/20 21:54 Albumin 3.9 g/dL (3.9-5) 01/02/20 21:54 Albumin/Globulin Ratio 1.3 % 01/02/20 21:54 Coronavirus (PCR) Negative (Negative) 01/03/20 Unknown Ji/IV: Voiding Method Toilet IV Catheter Type [Left INT / Saline Lock Antecubital] Active Medications - Current Medications Current Medications: Generic Name Dose Route Start Last Admin Trade Name Freq PRN Reason Stop Dose Admin Acetaminophen 650 mg 01/03/20 01:20 Tylenol PO Q4H PRN Fever >101 Albuterol 2.5 mg 01/03/20 01:23 Proventil IH Q4HRT PRN Shortness Of Breath Aspirin 81 mg 01/03/20 10:00 01/03/20 09:30 Baby Aspirin PO 81 mg QDAY MICHELLE Administration Atorvastatin Calcium 80 mg 01/03/20 22:00 Lipitor PO QHS MICHELLE Clopidogrel Bisulfate 75 mg 01/03/20 10:00 01/03/20 09:31 Plavix PO 75 mg QDAY MICHELLE Administration Heparin Sodium (Porcine) 5,000 unit 01/03/20 10:00 01/03/20 09:31 Heparin SUB-Q 5,000 unit Q12HR MICHELLE Administration Isosorbide Mononitrate 30 mg 01/03/20 10:00 01/03/20 09:30 Imdur PO 30 mg QDAY MICHELLE Administration Metoprolol Tartrate 25 mg 01/03/20 10:00 01/03/20 09:31 Metoprolol PO 25 mg BID MICHELLE Administration Ondansetron HCl 4 mg 01/03/20 01:19 Zofran IV Q8H PRN Nausea And Vomiting
[2020-01-03] MEDS ORDERED: SODIUM CHLORIDE 0.9% 1000 ML 1,000 ML IV SCH (19:30)
[2020-01-03] MEDS ORDERED: DICYCLOMINE 20 MG/2 ML INJ IM PRN (19:30)
[2020-01-04 08:38] LABS: BUN/Creatinine Ratio 18; Blood Urea Nitrogen 18 mg/dL (9-20); Calcium 8.8 mg/dL (8.4-10.2); Hemolysis Index 16
--- NOTE | 2020-01-04 11:31 | Cat Scan Report ---
CT ABDOMEN AND PELVIS WITH CONTRAST INDICATION / CLINICAL INFORMATION: MAIN. TECHNIQUE: Axial CT images were obtained through the abdomen and pelvis after IV contrast. All CT scans at this location are performed using CT dose reduction for ALARA by means of automated exposure control. COMPARISON: 10/05/2017 FINDINGS: LOWER CHEST: Right lung base atelectasis. Nodular soft tissue thickening of the distal esophagus on t he right measures 1.2 x 1.9 cmSmall hiatal hernia. LIVER: Postsurgical changes of the right hepatic lobe with obtained surgical clips. Resolution of pre viously noted right hepatic lobe abscess and interval removal of pigtail drainage catheter. GALLBLADDER: Cholecystectomy. BILE DUCTS: Common bile duct is prominent measuring 1 cm and likely secondary to postsurgical changes . PANCREAS: Small 5 mm hypoattenuating lesion of the pancreatic body likely represents a small cyst. SPLEEN: No significant abnormality. ADRENALS: No significant abnormality. RIGHT KIDNEY / URETER: Multiple simple renal cysts. LEFT KIDNEY / URETER: Multiple simple renal cysts. STOMACH / SMALL BOWEL: Soft tissue density intraluminal lesion measuring 1.5 cm (series 2 image 54) n oted of the proximal duodenum. No evidence of extraluminal extension or obstruction. COLON: Colonic diverticular disease without evidence of diverticulitis. APPENDIX: Not visualized. PERITONEUM: No free fluid. No free air. No fluid collection. LYMPH NODES: No significant adenopathy. AORTA / ARTERIES: No significant abnormality. IVC / VEINS: No significant abnormality. URINARY BLADDER: No significant abnormality. REPRODUCTIVE ORGANS: Enlarged prostate measuring 5 x 3.8 cm ADDITIONAL FINDINGS: Bilateral fat-containing inguinal hernias. SKELETAL SYSTEM: Multilevel degenerative changes are noted of the spine. IMPRESSION: 1. Soft tissue density lesions noted of the right distal esophageal wall and proximal duodenum. Endos copy is recommended for further evaluation. 2. Hiatal hernia. 3. Cholecystectomy. 4. Colonic Diverticulosis without evidence of diverticulitis. 5. Postsurgical changes to the right hepatic lobe with resolution of previously noted hepatic abscess and removal of pigtail catheter. Signer Name: James Silveira MD Signed: 01/04/2020 11:26 AM Workstation Name: [id number]
--- NOTE | 2020-01-04 11:43 | Progress Note ---
Assessment and Plan Assessment and plan: --COVID-19 test negative --Abdominal pain; CT abdomen and pelvis with contrast: Soft tissue density lesion noted in the right distal esophageal wall and proximal duodenum endoscopy is recommended for further evaluation Consult GI, for possible endoscopy --Chronic diastolic congestive heart failure; Anti-failure medications, input output monitoring Low-sodium diet --Acute hypoxic respiratory failure; hypoxia per ABG Oxygen titrate O2 sats to more than 90%, nebulizers IV steroids supportive care --Metabolic acidosis; bicarb 17. Vigorous IV hydration monitor renal function closely monitor bicarb --History of coronary artery disease status post PCI; Resume all the home cardiac medications, closely monitor adjust as needed --DVT prophylaxis; heparin Monitor closely and adjust management as needed Follow GI evaluation and recommendations Plan of care reviewed with the patient and his nurse 01/03; CT abdomen and pelvis; soft tissue lesion right distal esophageal wall GI consulted, possible endoscopy tomorrow, patient n.p.o. from midnight History Interval history: I have seen and examined the patient at the bedside Patient's chart and medications reviewed Patient underwent CT abdomen and pelvis, Abnormal findings reviewed GI consulted for possible endoscopy Patient has no new complaints Vital signs noted Hospitalist Physical - Constitutional Vitals: Temp Pulse Resp BP Pulse Ox 97.9 F 65 16 128/72 97 01/04/20 04:16 01/04/20 04:16 01/04/20 04:16 01/04/20 04:16 01/04/20 08:44 General appearance: Present: mild distress, well-nourished - EENT Eyes: Present: PERRL, EOM intact - Neck Neck: Present: supple, normal ROM - Respiratory Respiratory effort: normal Respiratory: bilateral: diminished, negative: rales, rhonchi, wheezing - Cardiovascular Rhythm: regular Heart Sounds: Present: S1 & S2 - Extremities Extremities: no ischemia, No edema - Abdominal General gastrointestinal: soft, non-tender, non-distended, normal bowel sounds - Integumentary Integumentary: Present: clear, warm - Psychiatric Psychiatric: appropriate mood/affect, cooperative - Neurologic Neurologic: moves all extremities HEART Score - HEART Score Age: > 65 Risk factors: 1-2 risk factors Troponin: Troponin T < 0.010 ng/mL (0.00-0.029) 01/03/20 15:50 - Critical Actions Critical Actions: 0-3 pts:0.9-1.7%risk of adverse cardiac event.Candidate for discharge Results - Labs CBC & Chem 7: 01/02/20 21:54 01/04/20 07:01 Labs: Laboratory Last Values WBC 10.6 K/mm3 (4.5-11.0) 01/02/20 21:54 RBC 4.47 M/mm3 (3.65-5.03) 01/02/20 21:54 Hgb 14.4 gm/dl (11.8-15.2) 01/02/20 21:54 Hct 41.6 % (35.5-45.6) 01/02/20 21:54 MCV 93 fl (84-94) 01/02/20 21:54 MCH 32 pg (28-32) 01/02/20 21:54 MCHC 35 % (32-34) H 01/02/20 21:54 RDW 12.6 % (13.2-15.2) L 01/02/20 21:54 Plt Count 256 K/mm3 (140-440) 01/02/20 21:54 Lymph % (Auto) 31.5 % (13.4-35.0) 01/02/20 21:54 [place] % (Auto) 10.4 % (0.0-7.3) H 01/02/20 21:54 Eos % (Auto) 3.4 % (0.0-4.3) 01/02/20 21:54 Baso % (Auto) 0.3 % (0.0-1.8) 01/02/20 21:54 Lymph # 3.4 K/mm3 (1.2-5.4) 01/02/20 21:54 [place] # 1.1 K/mm3 (0.0-0.8) H 01/02/20 21:54 Eos # 0.4 K/mm3 (0.0-0.4) 01/02/20 21:54 Baso # 0.0 K/mm3 (0.0-0.1) 01/02/20 21:54 Seg Neutrophils % 54.4 % (40.0-70.0) 01/02/20 21:54 Seg Neutrophils # 5.8 K/mm3 (1.8-7.7) 01/02/20 21:54 PT 13.3 Sec. (12.2-14.9) 01/02/20 21:54 INR 0.99 (0.87-1.13) 01/02/20 21:54 APTT 26.8 Sec. (24.2-36.6) 01/02/20 21:54 D-Dimer 202.7 ng/mlDDU (0-234) 01/02/20 22:20 ABG pH 7.373 pH Units (7.350-7.450) 01/02/20 23:29 ABG pCO2 35.8 mm Hg 01/02/20 23: ABG pO2 59.5 mm Hg (80.0-90.0) L 01/02/20 23: ABG HCO3 20.4 mmol/L (20.0-26.0) 01/02/20 23: ABG O2 Saturation 91.0 % (95.0-99.0) L 01/02/20 23:29 ABG O2 Content 17.9 (0.0-44) 01/02/20 23:29 ABG Base Excess -4.2 mmol/L (-2.0-3.0) L 01/02/20 23:29 ABG Hemoglobin 14.3 gm/dl (14.0-18.0) 01/02/20 23:29 ABG Carboxyhemoglobin 1.5 % (0.0-5.0) 01/02/20 23:29 ABG Methemoglobin 0.6 % (0.0-1.5) 01/02/20 23:29 Oxyhemoglobin 89.1 % (95.0-99.0) L 01/02/20 23:29 FiO2 21 % 01/02/20 23:29 Sodium 141 mmol/L (137-145) 01/04/20 07:01 Potassium 5.2 mmol/L (3.6-5.0) H D 01/04/20 07:01 Chloride 108.1 mmol/L (98-107) H 01/04/20 07:01 Carbon Dioxide 23 mmol/L (22-30) 01/04/20 07:01 Anion Gap 15 mmol/L 01/04/20 07:01 BUN 18 mg/dL (9-20) 01/04/20 07:01 Creatinine 1.0 mg/dL (0.8-1.3) 01/04/20 07:01 Estimated GFR > 60 ml/min 01/04/20 07:01 BUN/Creatinine Ratio 18 % 01/04/20 07:01 Glucose 99 mg/dL (75-100) 01/04/20 07:01 Calcium 8.8 mg/dL (8.4-10.2) 01/04/20 07:01 Phosphorus 2.50 mg/dL (2.5-4.5) 01/04/20 07:01 Magnesium 2.40 mg/dL (1.7-2.3) H 01/04/20 07:01 Total Bilirubin 0.40 mg/dL (0.1-1.2) 01/02/20 21:54 AST 19 units/L (5-40) 01/02/20 21:54 ALT 20 units/L (7-56) 01/02/20 21:54 Alkaline Phosphatase 73 units/L (35-129) 01/02/20 21:54 Total Creatine Kinase 74 units/L (55-170) 01/03/20 15:50 CK-MB (CK-2) 2.5 ng/mL (0.0-4.0) 01/03/20 15:50 CK-MB (CK-2) Rel Index 3.3 (0-4) 01/03/20 15:50 Troponin T < 0.010 ng/mL (0.00-0.029) 01/03/20 15:50 NT-Pro-B Natriuret Pep 115.9 pg/mL (0-900) 01/02/20 21:54 Total Protein 6.8 g/dL (6.3-8.2) 01/02/20 21:54 Albumin 3.9 g/dL (3.9-5) 01/02/20 21:54 Albumin/Globulin Ratio 1.3 % 01/02/20 21:54 Coronavirus (PCR) Negative (Negative) 01/03/20 Unknown Ji/IV: Voiding Method Toilet IV Catheter Type [Left INT / Saline Lock Antecubital] Active Medications - Current Medications Current Medications: Generic Name Dose Route Start Last Admin Trade Name Freq PRN Reason Stop Dose Admin Acetaminophen 650 mg 01/03/20 01:20 01/03/20 22:31 Tylenol PO 650 mg Q4H PRN Administration Fever >101 Albuterol 2.5 mg 01/03/20 01:23 Proventil IH Q4HRT PRN Shortness Of Breath Aspirin 81 mg 01/03/20 10:00 01/03/20 09:30 Baby Aspirin PO 81 mg QDAY MICHELLE Administration Atorvastatin Calcium 80 mg 01/03/20 22:00 01/03/20 22:31 Lipitor PO 80 mg QHS MICHELLE Administration Clopidogrel Bisulfate 75 mg 01/03/20 10:00 01/03/20 09:31 Plavix PO 75 mg QDAY MICHELLE Administration Dicyclomine HCl 10 mg 01/03/20 19:30 Bentyl IM QID PRN Colic Pain , Severe (7-10) Heparin Sodium (Porcine) 5,000 unit 01/03/20 10:00 01/03/20 22:32 Heparin SUB-Q 5,000 unit Q12HR MICHELLE Administration Sodium Chloride 1,000 mls @ 75 mls/hr 01/03/20 19:30 01/03/20 23:11 Nacl 0.9% 1000 Ml IV 75 mls/hr DIRECT MICHELLE Administration Isosorbide Mononitrate 30 mg 01/03/20 10:00 01/03/20 09:30 Imdur PO 30 mg QDAY MICHELLE Administration Metoprolol Tartrate 25 mg 01/03/20 10:00 01/03/20 22:31 Metoprolol PO 25 mg BID MICHELLE Administration Ondansetron HCl 4 mg 01/03/20 19:32 01/03/20 23:45 Zofran IV 4 mg Q4H PRN Administration Nausea And Vomiting
[2020-01-04] MEDS: ASPIRIN 81 MG TAB CHEW PO SCH (11:51)
[2020-01-04] MEDS: CLOPIDOGREL 75 MG TAB PO SCH (11:51)
[2020-01-04] MEDS: METOPROLOL TARTRATE 25 MG TAB PO SCH ×2 (11:52→23:25)
[2020-01-04] MEDS: HEPARIN 5,000 UNIT/1 ML VIAL SUB-Q SCH ×2 (11:52→23:26)
[2020-01-05] MEDS ORDERED: SODIUM CHLORIDE 0.9% 1000 ML 1,000 ML ONE (08:39)
--- NOTE | 2020-01-05 08:42 | Gastroenterology Consultation ---
History of Present Illness - Reason for Consult Consult date: 01/05/[address] Requesting physician: CHARLES MELÉNDEZ - History of Present Illness Is a pleasant 79-year-old gentleman from GI is consulted for abnormal CAT scan He reports some dysphagia to liquids intermittently for 1 month with choking sensation he denies dysphagia to solids Patient additionally reports of burning upper abdominal pain, bilateral, intermittent, duration 1 month, severe, worse with eating at times, better with nothing, no associated diarrhea nausea vomiting fevers or chills or melena. No radiation. Worsening. 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 Obtained/updated/reviewed patient's current medications Past History Past Medical History: CAD Past Surgical History: Other (Stents) Social history: no significant social history (Reports quit tobacco and alcohol 4 years ago) Family history: no significant family history Medications and Allergies Allergies Allergy/AdvReac Type Severity Reaction Status Date / Time No Known Allergies Allergy Unverified 09/23/17 20:31 Home Medications Medication Instructions Recorded Confirmed Last Taken Type Aspirin [Aspirin BABY CHEW TAB] 81 mg PO QDAY tab.chew 08/26/18 Unknown Rx AtorvaSTATin [Lipitor] 80 mg PO QHS #30 tablet 08/26/18 Unknown Rx Clopidogrel [Plavix] 75 mg PO QDAY #30 tablet 08/26/18 Unknown Rx ISOSORBIDE MONOnitrate [Imdur ER] 30 mg PO QDAY #30 tablet 08/26/18 Unknown Rx Metoprolol [Lopressor TAB] 25 mg PO BID #60 tablet 08/26/18 Unknown Rx Metoprolol [Lopressor TAB] 25 mg PO BID #60 tablet 08/26/18 Unknown Rx Active Meds: Active Medications Acetaminophen (Tylenol) 650 mg PO Q4H PRN PRN Reason: Fever >101 Last Admin: 01/03/20 22:31 Dose: 650 mg Documented by: Albuterol (Proventil) 2.5 mg IH Q4HRT PRN PRN Reason: Shortness Of Breath Aspirin (Baby Aspirin) 81 mg PO QDAY [facility] Last Admin: 01/04/20 11:51 Dose: 81 mg Documented by: Atorvastatin Calcium (Lipitor) 80 mg PO QHS [facility] Last Admin: 01/04/20 23:26 Dose: 80 mg Documented by: Clopidogrel Bisulfate (Plavix) 75 mg PO QDAY [facility] Last Admin: 01/04/20 11:51 Dose: 75 mg Documented by: Dicyclomine HCl (Bentyl) 10 mg IM QID PRN PRN Reason: Colic Pain , Severe (7-10) Heparin Sodium (Porcine) (Heparin) 5,000 unit SUB-Q Q12HR [facility] Last Admin: 01/04/20 23:26 Dose: 5,000 unit Documented by: Sodium Chloride (Nacl 0.9% 1000 Ml) 1,000 mls @ 75 mls/hr IV DIRECT [facility] Last Admin: 01/03/20 23:11 Dose: 75 mls/hr Documented by: Sodium Chloride (Nacl 0.9% 1000 Ml) 1,000 mls @ 75 mls/hr IV DIRECT [facility] Stop: 01/05/20 21:00 Isosorbide Mononitrate (Imdur) 30 mg PO QDAY [facility] Last Admin: 01/04/20 11:51 Dose: 30 mg Documented by: Metoprolol Tartrate (Metoprolol) 25 mg PO BID [facility] Last Admin: 01/04/20 23:25 Dose: 25 mg Documented by: Ondansetron HCl (Zofran) 4 mg IV Q4H PRN PRN Reason: Nausea And Vomiting Last Admin: 01/03/20 23:45 Dose: 4 mg Documented by: Review of Systems - Review of Systems All systems: negative (10 systems reviewed and negative except as mentioned above in history present illness with the addition of joint pain) Exam - Constitutional Vital Signs: Temp Pulse Resp BP Pulse Ox 97.4 F L 64 18 128/71 94 01/05/20 04:20 01/05/20 04:20 01/05/20 04:20 01/05/20 04:20 01/05/20 08:29 General appearance: no acute distress - EENT Eyes: EOM intact ENT: hearing intact, other (Decreased auditory acuity) - Neck Neck: supple - Respiratory Respiratory effort: normal - Cardiovascular Rhythm: regular - Gastrointestinal General gastrointestinal: Present: soft, non-tender, normal bowel sounds - Integumentary Integumentary: Present: dry - Neurologic Neurological: alert and oriented x3 - Psychiatric Psychiatric: appropriate mood/affect - Labs CBC & Chem 7: 01/02/20 21:54 01/04/20 07:01 Assessment and Plan Regarding esophageal lesion seen on CAT scan, EGD to further evaluate differential diagnosis includes esophagitis from reflux, malignancy, etc Regarding upper abdominal pain and thickening of the small bowel on the CAT scan, differential diagnosis includes malignancy, peptic ulcer disease, etc.. Proceed with EGD for further evaluation and risk stratification - Patient Problems (1) Abnormal CT scan, esophagus Current Visit: Yes Status: Acute (2) Dyspnea Current Visit: Yes Status: Acute
[2020-01-05] MEDS ORDERED: SODIUM CHLORIDE 0.9% 1000 ML 1,000 ML IV SCH (09:00)
[2020-01-05] MEDS ORDERED: propofoL 200 MG/20 ML VIAL IV ONE (09:09)
--- NOTE | 2020-01-05 09:11 | Anesthesia Day of Surgery ---
Anesthesia Day of Surgery - Day of Surgery Patient Examined: Yes Patient H&P Reviewed: Yes Patient is NPO: Yes
--- NOTE | 2020-01-05 09:11 | Anesthesia Consultation ---
Anesthesia Consult and Med Hx Date of service: 01/05/20 - Airway Anesthetic Teeth Evaluation: Poor, Dentures (upper and lower) ROM Head & Neck: Inadequate (restricted extension) Mental/Hyoid Distance: Inadequate Mallampati Class: Class III Intubation Access Assessment: Possibly Difficult - Pulmonary Exam CTA: Yes - Cardiac Exam Cardiac Exam: RRR - Pre-Operative Health Status ASA Pre-Surgery Classification: ASA3 Proposed Anesthetic Plan: MAC - Pulmonary Hx Smoking: Yes (former smoker) Hx Respiratory Symptoms: Yes (dyspnea on admission on intermittent nasal cannula O2) COPD: Yes (furhter work up pending) Home Oxygen Therapy: No - Cardiovascular System Hx Hypertension: Yes Hx Coronary Artery Disease: Yes Hx Heart Attack/AMI: Yes (STEMI 08/2018) Hx Percutaneous Transluminal Coronary Angioplasty (PTCA): Yes (ARNOLD 08/2018; EF 55-60% at that time) Hx Cardia Arrhythmia: No Hx Pacemaker: No Hx Internal Defibrillator: No - Central Nervous System CVA: No - Gastrointestinal Hx Gastroesophageal Reflux Disease: Yes - Endocrine Hx Renal Disease: No Hx Liver Disease: No Hx Insulin Dependent Diabetes: No Hx Non-Insulin Dependent Diabetes: No Hx Thyroid Disease: No - Hematic Hx Anemia: No - Other Systems Hx Obesity: No - Additional Comments Anesthesia Medical History Comments: No hx anesthetic complications. Swedish american sign language interpreter via language line used for interview and consent.
--- NOTE | 2020-01-05 09:42 | Operative Report ---
Operative Report Operative Report: DOS: SURGEON: Gurjit Mensah MD EGD WITH BIOPSY REPORT PREOPERATIVE DIAGNOSIS and POSTOPERATIVE DIAGNOSIS: Upper abdominal pain, abnormal CT scan ESTIMATED BLOOD LOSS: Minimal DESCRIPTION OF PROCEDURE: A high-resolution EGD scope was passed through the oropharynx, esophagus, stomach, and second portion of duodenum. The scope was carefully withdrawn. Retroflexion was performed in the stomach. At the end of the procedure, the scope was cleaned using normal technique. Vital signs monitored continuously throughout. SEDATION: Provided by Anesthesiology Services. COMPLICATIONS: None. FINDINGS: * Moderate duodenitis of the bulb through second portion of the duodenum with erythema and edema * Moderate to severe erosive gastritis of the entire stomach with old heme present, edema, erythema, superficial punctate ulcerations. Biopsies were taken to rule out H. Pylori infection. A total of 5 biopsies were taken, 2 from the antrum, 1 from the incisura, 2 from the body. * 5 cm hiatal hernia * GE junction 35 cm from incisors * Severe LA grade C reflux esophagitis with inflammation ulceration of the dist al 8 cm of the esophagus. Cold biopsies forceps obtained rule out dysplasia RECOMMENDATIONS: * Start twice daily PPI * Follow-up pathology results * CT scan findings correlate with esophagitis and duodenitis, no evidence for malignancy * From GI perspective, no findings that would require further hospitalization. If patient symptoms are controlled he can be discharged home with outpatient follow-up * GI will sign off please call back with any questions or concerns
[2020-01-05] MEDS ORDERED: PANTOPRAZOLE 40 MG TAB PO SCH (10:00)
--- NOTE | 2020-01-05 10:04 | Post Anesthesia Evaluation ---
- Post Anesthesia Evaluation Patient Participated: Yes Airway Patent: Yes Stable Respiratory Function: Yes Nausea/Vomiting: No Temp > 96.8F: Yes Pain Manageable: Yes Adequeate Hydration: Yes Anesthesia Complications: No
[2020-01-05] MEDS: CLOPIDOGREL 75 MG TAB PO SCH (11:08)
[2020-01-05] MEDS: ASPIRIN 81 MG TAB CHEW PO SCH (11:08)
[2020-01-05] MEDS: HEPARIN 5,000 UNIT/1 ML VIAL SUB-Q SCH (11:08)
[2020-01-05] MEDS: METOPROLOL TARTRATE 25 MG TAB PO SCH (11:08)
--- NOTE | 2020-01-05 17:11 | Discharge Summary ---
Providers - Providers Date of Admission: 01/03/20 00:02 Date of discharge: 01/05/20 Attending physician: CHARLES MELÉNDEZ 01/04/20 12:41 Consult to Physician [CONS] Routine Comment: Consulting Provider: NITIN SANTOS Physician Instructions: Reason For Exam: soft tissue lesion lower esophagus rt Primary care physician: MEASUREMENT PSYCHOLOGIST Hospitalization Reason for admission: Abdominal pain Condition: Stable Pertinent studies: CT abdomen and pelvis Chest x-ray Procedures: EGD ; moderate duodenitis of the bulb through second portion of the duodenum with erythema and edema * Moderate to severe erosive gastritis of the entire stomach with old heme present, edema, erythema, superficial punctate ulcerations. Biopsies were taken to rule out H. Pylori infection. A total of 5 biopsies were taken, 2 from the antrum, 1 from the incisura, 2 from the body. * 5 cm hiatal hernia * GE junction 35 cm from incisors * Severe LA grade C reflux esophagitis with inflammation ulceration of the distal 8 cm of the esophagus. Cold biopsies forceps obtained rule out dysplasia Hospital course: 79 year old male presenting with shortness of breath and weakness. Patient does not speak [place]ian and telephone line for translation is unavailable making history taking difficult. There is no indication of chest pain ,fever, chills ,nausea or vomting. Patient was admitted symptomatically managed, CT abdomen and pelvis with contrast: Soft tissue density lesion noted in the right distal esophageal wall and proximal duodenum Patient was evaluated by GI, underwent EGD which revealed, erosive gastritis, duodenitis, reflux esophagitis status post biopsy GI recommend Protonix twice a day, follow-up in the office for further evaluation and to discuss the biopsy reports when available. Today patient is comfortable no new complaints vital signs stable Tolerating oral nutrition Cleared by GI for discharge and follow-up as outpatient Discharge diagnosis; --Severe erosive gastritis; status post biopsy --Moderate duodenitis ; --Severe LA grade C reflux esophagitis with ulceration Status post biopsy Protonix twice daily, follow GI, follow biopsy report --Abdominal pain; CT abdomen and pelvis with contrast: Soft tissue density lesion noted in the right distal esophageal wall and proximal duodenum endoscopy is recommended for further evaluation Consult GI, for possible endoscopy --Chronic diastolic congestive heart failure; Anti-failure medications, input output monitoring Low-sodium diet --Acute hypoxic respiratory failure; hypoxia per ABG Oxygen titrate O2 sats to more than 90%, nebulizers IV steroids supportive care --Metabolic acidosis; bicarb 17. Vigorous IV hydration monitor renal function closely monitor bicarb --History of coronary artery disease status post PCI; Resume all the home cardiac medications, closely monitor adjust as needed Disposition: DC-01 TO HOME OR SELFCARE Time spent for discharge: 32 min Core Measure Documentation - Palliative Care Palliative Care/ Comfort Measures: Not Applicable - Core Measures Any of the following diagnoses?: none Exam - Constitutional Vitals: Temp Pulse Resp BP Pulse Ox 97.6 F 71 20 143/80 98 01/05/20 11:05 01/05/20 11:07 01/05/20 11:05 01/05/20 11:07 01/05/20 11:05 General appearance: Present: no acute distress, well-nourished - EENT Eyes: Present: PERRL, EOM intact Plan Activity: advance as tolerated, fall precautions Diet: advance as tolerated, other (Soft diet) Additional Instructions: If you have worsening symptoms contact MD or go to emergency room. Follow supervisor inspection in 1 to 2 weeks. Avoid NSAID group of pain medications pain Follow up with: PRIMARY CARE, [Primary Care Provider] - 7 Days NITIN SANTOS MD [Staff Physician] - 7 Days Prescriptions: Pantoprazole [Protonix TAB] 40 mg PO BID #60 tablet
[2020-01-05 18:33] VITALS: BP 128/71
== END 2020-01-05 19:00 | disposition home or self-care (01) ==
LOC: ED 21:03 → 3A 01-03 00:02
PROVIDERS: ADMIT Internal Medicine; ATTEND Internal Medicine
DX: K29.70 Gastritis, unspecified, without bleeding (principal); Z20.828 Contact with and (suspected) exposure to other viral communicable diseases; J96.01 Acute respiratory failure with hypoxia; I50.32 Chronic diastolic (congestive) heart failure; K29.80 Duodenitis without bleeding; K21.0 Gastro-esophageal reflux disease with esophagitis; K22.10 Ulcer of esophagus without bleeding; E87.2 Acidosis; I25.10 Atherosclerotic heart disease of native coronary artery without angina pectoris; I25.2 Old myocardial infarction; E78.5 Hyperlipidemia, unspecified; Z87.891 Personal history of nicotine dependence; Z95.5 Presence of coronary angioplasty implant and graft; Z79.82 Long term (current) use of aspirin; Z79.02 Long term (current) use of antithrombotics/antiplatelets; Z79.899 Other long term (current) drug therapy
CPT/HCPCS: 36415; 43239; 71045; 74177; 80048; 80053; 82550; 82553; 82803; 83735; 83880; 84100; 84484; 85025; 85379; 85610; 85730; 88305; 88342; 93005; 94640; 94760; 96361; 96372; 96374; 99285; A9270; G0378; J1644; J2405; J2704; J7030; Q9967; U0003